=== PATIENT | male | born 1955 | race Caucasian/White ===

== ENCOUNTER 2023-03-29 08:20 | Emergency (ER) | payer MEDICARE, SELFPAY ==
[2023-03-29] VITALS (18 sets, daily range): BP systolic 146–165; BP diastolic 81–88; PULSE 48–59; RESP 20; TEMP 36.2; O2SAT 95–98
--- NOTE | 2023-03-29 08:41 | ED_ITS ---
HPI - General Adult General Chief complaint: Chest Pain Stated complaint: chest pains Time Seen by Provider: 03/29/23 08:40 History of Present Illness HPI narrative: Pt reports intermittent chest pain x2-3 weeks. Pain has been all over the chest, now is concentrated on L side of chest over last few days. Pt rates pain between 1 and 8 out of 10. Pt states he took 8 baby aspirin yesterday, states aspirin help relieve pain. 67-year-old man presenting to the emergency department he has been having intermittent chest pain over the last couple of weeks. Would describe as a nonexertional ache in chest that has been occurring intermittently for weeks. More persistent or present over the last day or 2. Otherwise not short of breath. No fever cough or cold symptoms. Seems that seatbelt was bothering or reproducing the pain in the left chest. No fever. No cough or cold symptoms. No clear correlating activity to have cause this or any noted injury. Related Data Home Medications Medication Instructions Recorded Confirmed rosuvastatin 20 mg tablet (Crestor) 20 mg PO DAILY 03/29/23 03/29/23 Allergies Allergy/AdvReac Type Severity Reaction Status Date / Time No Known Drug Allergies Allergy Verified 03/29/23 08:31 Review of Systems Status of ROS: Reports: 6 or more systems reviewed and unremarkable except as noted in History and below [facility] Social History Smoking Status: Current some day smoker What tobacco products do you use: cigars How often do you have a drink containing alcohol: monthly or less How often do you have six or more drinks on one occasion: Never AUDIT-C Alcohol total score: 1 Non-prescribed substance use: denies use Exam Narrative: Exam Narrative: Pleasant. NAD. Skin is warm and dry. Heart in slow rate but regular rhythm. No significant lower extremity edema. Well-perfused. Palpation of the chest wall does not reproduce pain. I do not see any rashes. Lungs are clear. Const: Vital Signs, click to edit/add: Vital Signs - 24 hr 03/29/23 08:25 03/29/23 08:32 03/29/23 08:33 Temperature 97.2 F L Pulse Rate 59 L 59 L Pulse Rate [Pulse Oximeter] 57 L Respiratory Rate 20 Blood Pressure 165/86 H Blood Pressure [Le ft Upper Arm] 165/86 H Pulse Oximetry 98 98 98 Oxygen Delivery Me thod Room Air 03/29/23 08:45 03/29/23 09:00 03/29/23 09:01 Temperature Pulse Rate 58 L 56 L 55 L Pulse Rate [Pulse Oximeter] Respiratory Rate Blood Pressure 155/88 H Blood Pressure [Le ft Upper Arm] Pulse Oximetry 97 98 97 Oxygen Delivery Me thod 03/29/23 09:15 03/29/23 09:30 03/29/23 09:32 Temperature Pulse Rate 54 L 54 L 57 L Pulse Rate [Pulse Oximeter] Respiratory Rate Blood Pressure 146/81 H Blood Pressure [Le ft Upper Arm] Pulse Oximetry 96 97 97 Oxygen Delivery Me thod 03/29/23 09:45 03/29/23 10:00 03/29/23 10:02 Temperature Pulse Rate 55 L 51 L 55 L Pulse Rate [Pulse Oximeter] Respiratory Rate Blood Pressure 151/81 H Blood Pressure [Le ft Upper Arm] Pulse Oximetry 96 97 97 Oxygen Delivery Me thod 03/29/23 10:15 03/29/23 10:30 03/29/23 10:32 Temperature Pulse Rate 52 L 48 L 49 L Pulse Rate [Pulse Oximeter] Respiratory Rate Blood Pressure 150/84 H Blood Pressure [Le ft Upper Arm] Pulse Oximetry 97 95 97 Oxygen Delivery Me thod 03/29/23 10:45 03/29/23 11:00 03/29/23 11:01 Temperature Pulse Rate 50 L 50 L 52 L Pulse Rate [Pulse Oximeter] Respiratory Rate Blood Pressure 160/87 H Blood Pressure [Le ft Upper Arm] Pulse Oximetry 96 98 97 Oxygen Delivery Me thod Documenting provider has reviewed patient's vital signs: yes Course Vital Signs Vital signs: Initial Vital Signs Temperature 97.2 F L 03/29/23 08:25 Temperature Source Temporal Artery Scan 03/29/23 08:25 Pulse Rate 57 L 03/29/23 08:25 Respiratory Rate 20 03/29/23 08:25 Blood Pressure 165/86 H 03/29/23 08:25 Blood Pressure Mean 112 H 03/29/23 08:25 Blood Pressure Position Supine 03/29/23 08:25 Pulse Oximetry 98 03/29/23 08:25 Oxygen Delivery Method Room Air 03/29/23 08:25 Vital Signs Temperature 97.2 F L 03/29/23 08:25 Pulse Rate 57 L 03/29/23 08:25 Respiratory Rate 20 03/29/23 08:25 Blood Pressure 165/86 H 03/29/23 08:25 Pulse Oximetry 98 03/29/23 08:25 Oxygen Delivery Method Room Air 03/29/23 08:25 Temperature 97.2 F L 03/29/23 08:25 Pulse Rate 52 L 03/29/23 11:01 Respiratory Rate 20 03/29/23 08:25 Blood Pressure 160/87 H 03/29/23 11:01 Pulse Oximetry 97 03/29/23 11:01 Oxygen Delivery Method Room Air 03/29/23 08:25 Medical Decision Making MDM Narrative Medical decision making narrative: The mild and semi reproducible nature of this discomfort I suppose is reassuring. Symptoms seem more likely to be musculoskeletal in origin, possibly costochondritis. I think this will be difficult to confirm a diagnosis. Will check labs looking for indication of cardiac stress or injury. Anemia would also be in differential. Heartburn/dyspepsia/GERD? 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 Apparently this is not new. Chest x-ray reviewed by me looks to be WNL. Normal cardiac silhouette. No pneumothorax or infiltrate. No interventions needed during time in the ER. Labs are reassuring. See patient discharge plan Lab Data Lab results reviewed: Yes I reviewed the patient's lab results Labs: Lab Results 03/29/23 Range/Units 08:40 WBC 5.96 (4.50-11.00) K/uL RBC 4.85 (4.30-5.90) m/uL Hgb 14.4 (13.5-17.5) gm/dL Hct 42.7 (37.0-53.0) % MCV 88 (80-100) fL MCH 30 (26-34) pg MCHC 34 (32-36) gm/dL RDW Coeff of En 12.4 (11.5-15.5) % Plt Count 150 (140-440) K/uL Neut % (Auto) 57.5 (42.0-72.0) % Lymph % (Auto) 29.2 (20-44) % [place] % (Auto) 9.9 (0.0-11.0) % Eos % (Auto) 2.9 (0.0-7.0) % Baso % (Auto) 0.2 (0.0-3.0) % Neut # (Auto) 3.43 (1.7-7.0) K/uL Lymph # (Auto) 1.74 (0.90-2.90) K/uL [place] # (Auto) 0.60 (0.00-0.90) K/UL Eos # (Auto) 0.17 (0.00-0.50) K/uL Baso # (Auto) 0.01 (0.00-0.30) K/uL Abs Immat Gran (auto) 0.02 (0.00-0.30) K/uL Imm/Tot Granulo (auto) 0.3 % D-Dimer Quant (PE/DVT) < 0.27 (0.00-0.50) ug/ml Sodium 139 (135-149) mmol/L Potassium 4.2 (3.6-5.1) mmol/L Chloride 107 (96-114) mmol/L Carbon Dioxide 24 (20-32) mmol/L Anion Gap 8 (7-15) mEq/L BUN 16 (7-30) mg/dL Creatinine 1.1 (0.5-1.5) mg/dL Estimated Creat Clear 69.41 Estimated GFR 74 ml/min Glucose 127 H (60-115) mg/dL Calcium 8.6 (8.4-10.6) mg/dL Total Bilirubin 0.4 (0.1-1.5) mg/dL Direct Bilirubin 0.0 (0.0-0.5) mg/dL AST 28 (12-35) U/L ALT 37 (4-50) U/L Alkaline Phosphatase 57 (40-150) U/L Troponin I < 0.01 L (0.01-0.04) ng/mL C-Reactive Protein 0.5 (0.5-1.0) mg/dL NT-Pro-B Natriuret Pep 104 pg/mL Total Protein 7.5 (6.0-8.3) g/dL Albumin 4.3 (3.3-5.0) g/dL Lipase 67 (23-300) U/L POC Troponin I 0.01 (0.01-0.04) ng/ml ECG Data Attestation: I personally reviewed and interpreted this ECG as follows: (Sinus bradycardia rate of 58 no acute ischemic changes.) Discharge Plan Discharge Clinical Impression: Atypical chest pain, Bradycardia Patient Disposition: Home w/ Parent or Adult Condition: Stable Additional Instructions: Please follow-up with your primary care provider in person or via message as I would anticipate needing to schedule a stress test but discuss further workup with her primary care provider. This could be chest wall pain and some sort or some other inflammatory process in your chest. Consider taking 400-600 mg of ibuprofen 3 times a day maybe with a little bit of food for the next 5 days. Reassess at that point. Alternative to the ibuprofen would be up to 500 mg naproxen 2 times daily. Return for marked increase in persistent chest discomfort, associated shortness of breath or nausea or lightheadedness. This could be an atypical presentation for heartburn as well. Famotidine would be another option for couple of weeks. Prescriptions: No Action rosuvastatin [Crestor] 20 mg tablet 20 mg PO DAILY Follow Up/Referrals: Provider,Not a Local [Primary Care Provider] - Stand Alone Forms: Third Screen Media Info Instructions
[2023-03-29 08:53] LABS: Troponin, Point-of-Care* 0.01 ng/ml (0.01-0.04)
--- NOTE | 2023-03-29 09:01 | CRLHL7_ITS ---
For Patients: As a result of the Century Cures Act, medical imaging exams and procedure reports are released immediately into your electronic medical record. You may view this report before your referring provider. If you have questions, please contact your health care provider. INDICATION: Intermittent left-sided chest pain TECHNIQUE: Chest 1 views. COMPARISON: None. FINDINGS: Cardiovasculature and mediastinum: Heart size and vasculature are normal in caliber and appearance. Lungs and pleural spaces: Lungs are clear. No sign of infiltrate or mass. No sign of pleural effusion. No pneumothorax. Bones and soft tissues: No significant findings. IMPRESSION: No acute cardiopulmonary process. Dictated by Robetr Rodriguez MD @ 03/29/2023 9:25:49 AM (Electronically Signed)
[2023-03-29 09:07] LABS: Basophils Absolute Auto 0.01 K/uL (0.00-0.30); Basophils Percent Auto 0.2 % (0.0-3.0); Eosinophils Absolute Auto 0.17 K/uL (0.00-0.50); Eosinophils Percent Auto 2.9 % (0.0-7.0); Hematocrit 42.7 % (37.0-53.0); Hemoglobin* 14.4 gm/dL (13.5-17.5); Immature Granulocytes Abs Auto 0.02 K/uL (0.00-0.30); Immature Granulocytes Pct Auto 0.3 %; Lymphocytes Absolute Auto 1.74 K/uL (0.90-2.90); Lymphocytes Percent Auto 29.2 % (20-44); Mean Corpuscular HGB Conc 34 gm/dL (32-36); Mean Corpuscular Hemoglobin 30 pg (26-34); Mean Corpuscular Volume 88 fL (80-100); Monocytes Percent Auto 9.9 % (0.0-11.0); Neutrophils Absolute Auto 3.43 K/uL (1.7-7.0); Neutrophils Percent Auto 57.5 % (42.0-72.0); Platelet Count* 150 K/uL (140-440); RDW Coefficient of Variation % 12.4 % (11.5-15.5); Red Blood Count 4.85 m/uL (4.30-5.90); White Blood Count* 5.96 K/uL (4.50-11.00)
[2023-03-29 09:09] LABS: Slide Review Reflex No
[2023-03-29 09:28] LABS: Albumin* 4.3 g/dL (3.3-5.0); Chloride* 107 mmol/L (96-114); Sodium* 139 mmol/L (135-149)
[2023-03-29 09:29] LABS: D Dimer Quantitative* < 0.27 ug/ml (0.00-0.50); Potassium* 4.2 mmol/L (3.6-5.1)
[2023-03-29 09:30] LABS: Creatinine* 1.1 mg/dL (0.5-1.5); Est. Creatinine Clearance* 69.41; Estimated Glomerular Filt Rate 74 ml/min
[2023-03-29 09:31] LABS: Alkaline Phosphatase* 57 U/L (40-150); Anion Gap 8 mEq/L (7-15); Aspartate Amino Transferase* 28 U/L (12-35); Bilirubin Total* 0.4 mg/dL (0.1-1.5); Blood Urea Nitrogen* 16 mg/dL (7-30); Carbon Dioxide* 24 mmol/L (20-32); Glucose* 127 mg/dL (60-115); Lipase* 67 U/L (23-300); Total Protein* 7.5 g/dL (6.0-8.3)
[2023-03-29 09:32] LABS: Alanine Aminotransferase* 37 U/L (4-50); Calcium* 8.6 mg/dL (8.4-10.6)
[2023-03-29 09:34] LABS: C Reactive Protein* 0.5 mg/dL (0.5-1.0)
[2023-03-29 10:01] LABS: NT Pro B Type NatriureticPept* 104 pg/mL; Troponin I* < 0.01 ng/mL (0.01-0.04)
== END 2023-03-29 11:21 | disposition home or self-care (01) ==
PROVIDERS: Emergency Provider Family Medicine
DX: R07.9 Chest pain, unspecified (principal); R00.1 Bradycardia, unspecified
CPT/HCPCS: 36415; 71045; 80048; 80076; 83690; 83880; 84484; 85025; 85379; 86140; 93005; 99284

== ENCOUNTER 2024-06-08 11:29 | Emergency (ER) | payer OTHER, SELFPAY ==
--- OUTSIDE RECORDS SUMMARY | 2024-06-08 11:31 | XMS_ITS | Encounter Summary ---
Author Name [facility] [place] [facility] [place] [facility] [place] Address [address] [place] [address] Care Team Providers Care Double Cutter Name Role Phone DERRICK BARNES Primary Care [...] PART A Apr 29, 2020 PART A [id number] P[place] GREGORY PATIENT MEDICARE (WNR) MEDICARE (M) PART B Apr 29, 2020 PART B [id number] P[place]O GREGORY PATIENT U-CARE OF [facility] (WNR) MEDICARE ADVANTAGE [facility] Apr 29, 2021 [id number] P[place] GREGORY PATIENT Selected Encounter This section includes the information on record at [place] for the Encounter. Date/Time Encounter Type Encounter Description Reason Provider Source Jan 08, 2024 10:30 AM COMPRE OPH EXAM EST PT 1/> OPTOMETRY ICD-10-CM I78.1 Nevus, non-neoplasti c HVEZDA,DEISY Morse IHE Encounter Template Text not used by VA Assessments - Encounter Diagnoses This section includes the primary and secondary diagnoses documented for the Encounter. Date/Time Primary/Secondary Diagnosis Diagnosis Name Provider Source Jan 08, 2024 01:33 PM PRIMARY Nevus, non-neoplastic HVEZBRIGIDO DOMÍNGUEZE K [facility] Jan 08, 2024 01:33 PM SECONDARY Combined forms of age-related cataract, bilateral HVEZDA,DEISY K [facility] Jan 08, 2024 01:33 PM SECONDARY Myopia, bilateral HVEZDA,DEISY K [facility] Jan 08, 2024 01:33 PM SECONDARY Presbyopia HVEZDA,DEISY K [facility] Jan 08, 2024 01:33 PM SECONDARY Unspecified astigmatism, bilateral HVEZDA,DEISY K [facility] Social History: Smoking Status (Most current) and Tobacco Use (All prior to encounter date) This section includes the most current, and the historical, smoking and tobacco- related health factors from the [place] facility where the Encounter took place. Current Smoking Status This section includes the most current smoking, or tobacco-related health factor, from the [place] facility where the Encounter took place. Date/Time Current Smoking Status Comment Facil ity Aug 21, 2023 10:30 AM VA-TOBACCO FORMER USER [facility] Tobacco Use History This section includes a history of the smoking, or tobacco-related health factors, that were collected on or before the date of the Encounter. The data comes from the [place] facility where the Encounter took place. Date/Time [...] Images obtained and available for viewing in [employer]. /claudia/ DEISY WILLIS OD,FAAO Signed: 01/08/2024 13:33 DEISY WILLIS [facility] Jan 08, 2024 10:06 AM OPTOMETRY NOTE: LOCAL TITLE: OPTOMETRY NOTE STANDARD TITLE: OPTOMETRY NOTE DATE OF NOTE: JAN 08, 2024@10:06 ENTRY DATE: JAN 08, 2024@10:06:33 AUTHOR: DEISY WILLIS EXP COSIGNER: URGENCY: STATUS: COMPLETED [place] [id number] MALE 68 WHITE Apr LEGEND PERRL = [...] is the source for the followin. Obesity ([facility] [id number]) 2. History of colonic polyp 3. Psoriasis [...] pleasant here for his comprehensive eye exam. [place] reports he is interested in trying bifocals, he sees well in his glasses, takes them off to read, no other ocular complaints. [place] lived in [place] for many years. [place] has some hunting land in [place]. They moved to [place] to be closer to their kids & [...] Medications: none Habitual Spectacle RX: 11/2021 OD: -0.50-1.08d706 OS: -1.00-0.17e288 Add +2.25 Entering DVA cc: OD: 20/20-1 OS: 20/20-2 Pupils: PERRL -APD OU Extraocular muscles: unrestricted OD, unrestricted OS Confrontations: full to finger count OD, full to finger count OS Manifest Refraction: OD: -0.50-1.24v142 20/20 OS: -0.75-1.10e437 20/20 Add +2.50 20/20 Slit Lamp Exam: [...] prescriber. *This note was created partially using [employer] [id number] software, and although edited in real-time, may occasionally contain grammatical or semantic errors. Return to Clinic: 1 year optometry /es/ DEISY WILLIS OD,FAAO Signed: 01/08/2024 13:33 DEISY WILLIS OC
--- OUTSIDE RECORDS SUMMARY | 2024-06-08 11:31 | XMS_ITS | Clinical Summary ---
Author Organization [facility] Address [place], [place] [address] Care Team Providers Care Medical Records Library Professor Name Role Phone Pcp, No Primary Care Provider Unavailabl e Allergies No known active allergies Medications aspirin (ECOTRIN) 81 mg enteric coated tablet Take 1 tablet by mouth once daily with a meal. 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 Immunizations Name Administration Dates Next Due Tdap 12/17/2012 Family History Medical History Relation Name Comments Cancer Brother Melanoma Other Father Parkinson's Diabetes Mother Relation Name Status Comments Brother Father (Age 91) Parkinson' s Mother (Age 94) Pneumonia Social History Tobacco Use Types Packs/Day Years Used Date Smoking Tobacco: Former Cigars Smokeless Tobacco: Never Tobacco Cessation:Ready to Q uit: Yes; Counseling Given: Yes Comments:1-2 week Alcohol Use Standard Drinks/Week Comments Yes 2 (1 standard drink = 0.6 oz pur e alcohol) Sex and Gender Information Value Date Recorded Sex Assigned at Not on file Legal Sex Male 8:22 AM [employer] Gender Identity Not on file Sexual Orientation Not on file Occupation Industry Job Start Date Job End Date 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 Not on file Not on file Not on file Obstetrics History Last Filed Vital Signs Vital Sign Reading Time Taken Comments Blood Pressure 154/89 04/18/2016 8:59 AM [employer] Pulse 64 04/18/2016 8:59 AM [employer] Temperature 36.6 C (97.9 F) 12/20/2015 8:03 AM CDT Respiratory Rate 18 02/24/2015 8:43 AM CDT Oxygen Saturation 98% 12/20/2015 8:03 AM CDT Inhaled Oxygen Concentration - - Weight 101.5 kg (223 lb 12.8 oz) 04/18/2016 8:59 AM [employer] Height 180.3 cm (5' 11) 04/18/2016 8:59 AM [employer] Body Mass Index 31.21 04/18/2016 8:59 AM [employer] Plan of Treatment Health Maintenance Due Date Last Done Comments Hepatitis C screening for ag e 18-79 1973 Colonoscopy through age 75 2000 Lipids for age 45-75 2000 Pneumococcal series for age 50+ (1 of 1 - PCV) 2005 Zoster (shingles) series for age 50+ (1 of 2) 2005 Depression screening for age 12+ 12/19/2016 12/20/19 16, 12/20/2015 BMI (ht and wt on same day) for age 18+ 04/18/2017 04/18/2016, 12/20/2015, 08/11/2015, Additional history exists Tetanus booster 12/17/2022 12/17/2012 COVID-19 vaccine series ( - 2023- season) 2023 Influenza for age 65+ 12/29/2023 RSV vaccine for adults or (1 - 1-dose 75+ series) 2030 Tdap Completed 12/17/2012 Care Teams Medical Records Library Professor Relationship Specialty Start Date End Date Pcp, No . PCP - General 06/20/22
--- OUTSIDE RECORDS SUMMARY | 2024-06-08 11:31 | XMS_ITS | Clinical Summary ---
Author Organization [facility] Address [address] [place] [address] Care Team Providers Care Supervisor Hand Workers Name Role Phone Giovanny Villafuerte MD Primary Care Provider [phone] Source Comments You are receiving this document as you are listed as the primary care provider,follow-up provider, or the patient has been referred to you for consultation.This is in compliance with the Medicare and[facility] EHR Incentive Program,which states Providers who transition their patient to another setting of careor provider of care or refers their patient to another provider of care shouldprovide summary care record for each transition of care or referral. [facility] All[facility] No known active allergies Medications Medication Sig Dispensed Refills Start Date End Date Status aspirin 81 MG tablet Take 1 tablet by mouth daily (every 24 hours). 90 3 08/07/2005 Active Methotrexate, Anti-Rheumatic, (AKA RHEUMATREX) 2.5 MG tablet Take 7 tablets by mouth once a week. 84 tablet 2 09/30/2013 Active Additional Information Patient not taking.Reported on 10/13/2020 folic acid 1 MG tablet TAKE 1 TABLET BY MOUTH DAILY (EVERY 24 HOURS). 30 tablet 3 05/21/2014 Active Additional Information Patient not taking.Reported on 10/13/2020 clobetasol (AKA TEMOVATE) 0.05 % ointment Apply 1 Application topically 2 times daily. 60 g 2 11/11/2014 Active Additional Information Patient not taking.Reported on 10/13/2020 Active Problems Problem Noted Date Diagnosed Date Hand eczema 12/17/2012 Hydrocele 08/25/2008 Overview (12/01/2015): LW Modifier: bilateral Immunizations Name Administration Dates Next Due TDAP (BOOSTRIX) 12/17/2012 Td 08/17/2003 Family History Medical History Relation Name Comments Parkinsons Father Cataract Mother Diabetes Mother Blindness Brother 1 Cancer, Skin Brother 1 melanoma Relation Name Status Comments Father (Age 91) Mother in her 90' s Brother 1 (Age 56) Brother 2 Alive Brother 3 Alive Brother 4 Alive Sister 1 Alive Sister 2 Alive Social History Tobacco Use Types Packs/Day Years Used Date Smoking Tobacco: Never Smokeless Tobacco: Never Comments:Quit smoking: Alcohol Use Standard Drinks/Week Comments Yes 0 (1 standard drink = 0.6 oz pur e alcohol) occasional PHQ-2 Answer Date Recorded PHQ-2 Score 0 10/13/2020 Sex and Gender Information Value Date Recorded Sex Assigned at Not on file Gender Identity Not on file Sexual Orientation Not on file Last Filed Vital Signs Vital Sign Reading Time Taken Comments Blood Pressure 144/84 10/13/2020 1:35 PM CDT monitoring at [place] Pulse 71 10/13/2020 1:35 PM CDT Temperature 36.7 C (98 F) 10/13/2020 1:35 PM CDT Respiratory Rate 20 12/17/2013 8:25 AM CDT Oxygen Saturation - - Inhaled Oxygen Concentration - - Weight 103.7 kg (228 lb 11. 2 oz) 10/13/2020 1:35 PM CDT Height 179.1 cm (5' 10.5) 12/17/2012 9 :31 AM CDT Body Mass Index 32.35 12/17/2012 9:31 AM CDT Plan of Treatment Health Maintenance Due Date Last Done Comments Hep C Screening (Preventive Services) 1955 Medicare Annual Wellness Visit 1955 Zoster/Shingles (1 of 2) 2005 Cholesterol 12/17/2017 12/17/2012, 07/29, 11/19/2007, Additional history exists Colonoscopy 12/15/2018 12/15/2008 Pneumococcal 65+ Yrs (1 - PCV) 2020 DTaP/Tdap/Td (2 - Tdap) 12/17/2022 12/17/2012, 08/16 COVID-19 Vaccine (1 - 2023- season) 2023 Influenza (#1) 2023 RSV (1 - 1-dose 75+ series) 2030 PSA Screening Discussion Discontinued 013, 08/25/2008, 08/07/2005 HepA Aged Out No longer eligi ble based on patient's age to complete this topic HepB Aged Out No longer eligi ble based on patient's age to complete this topic Hib Aged Out No longer eligi ble based on patient's age to complete this topic IPV (Polio) Aged Out No longer eligi ble based on patient's age to complete this topic MCV4 Aged Out No longer eligi ble based on patient's age to complete this topic Procedures Procedure Name Priority Date/Time Associated Diagnosis Comments PROSTATIC SPECIFIC ANTIGEN(SCREEN) Routine 12/17/2012 10:40 AM CDT Well adult exam LIPID PANEL & DIRECT LDL (IF NEEDED) Routine 12/17/2012 10:40 AM CDT Well adult exam ENDOSCOPY, COLON, SCREENING/DIAGNOSTI C Routine 12/15/2008 5:06 PM CDT from Last 3 Months or Most Recently Relevant to Health Maintenance Results * (ABNORMAL) Lipid Panel and Direct LDL(If Needed) (12/17/2012 10:40 AM CDT) Cholesterol 185 0 - 200 mg/dL HP CONVERSION Triglycerides 181(H) 0 - 149 mg/dL HP CONVERSION HDL Cholesterol 36(L) >39 mg/dL HP CONVERSION Cholesterol/HDL Ratio Screen 5.1 HP CONVERSION LDL Calculated 113 19 - 130 mg/dL HP CONVERSION Hours Fasting 12.0 HP CONVERSION 12/17/2012 10:4 0 AM CDT 12/17/2012 10:40 AM CDT Narrative HP CONVERSION - 12/17/2012 11:08 AM CDT Performed at [facility], [address] [place] [address] Giovanny Villafuerte MD LAB_1 HP CONVERSION * Prostatic Specific Antigen (Screen) (12/17/2012 10:40 AM CDT) Prostate Specific Antigen 0.4 0.0 - 4.0 ng/mL HP CONVERSION 12/17/2012 10:4 0 AM CDT 12/17/2012 1:37 PM CDT Giovanny Villafuerte MD LAB_1 HP CONVERSION * Endoscopy, colon, diagnostic (12/15/2008 5:06 PM CDT) Anatomical Region Laterality Modality Other User Conversion ET GI PROCEDURE ORDE RABLES from Last 3 Months or Most Recently Relevant to Health Maintenance Care Teams Supervisor Hand Workers Relationship Specialty Start [place] [address] [place] [address] PCP - General 07/31/10
--- OUTSIDE RECORDS SUMMARY | 2024-06-08 11:31 | XMS_ITS | Clinical Summary ---
Author Organization [facility] Address [address] [place] [address] Care Team Providers Care Composition Mixer Name Role Phone Elsewhere, Pcp Primary Care Provider Unavailabl e Source Comments Patient records contain information from all sites at [facility]. For routine questions regarding patient records, call [phone] during business hours, M-F 8:00 AM - 5:00 PM Central Time. Record requests for emergency care only can be directed to [phone] at any time.[facility] Allergies No known active allergies Medications aspirin 81 mg capsule Take 81 mg by mouth once. Active rosuvastatin (CRESTOR) 20 mg tablet Take 10 mg by mouth daily. Active erythromycin (ROMYCIN) 5 mg/gram (0.5 %) ophthalmic ointment Apply 1 cm to right eye every 6 (six) hours. 3.5 g 09/20/2023 10:11 AM CDT 4 Active methocarbamoL (Robaxin) 500 mg tablet Take 2 tablets (1,000 mg total) by mouth at bedtime. Start dosing at bedtime only. Ok to titrate up to every 8 hours if tolerating. 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 Diverticulum Meckel's 01/31/2017 Diverticulitis Colon 01/31/2017 Psoriasis 01/31/2017 Hernia Incisional 01/31/2017 Immunizations Immunization Administration Dates Next Due Td (Adult), adsorbed 08/17/2003 Tdap 12/17/2012 Family History Medical History Relation Name Comments Melanoma Brother Parkinson disease Father passed edwina y 91 Psoriasis Father Eye Mother 94 Relation Name Status Comments Brother Melanoma Father Mother Social History Tobacco Use Types Packs/Day Years Used Date Smoking Tobacco: Never Smokeless Tobacco: Never Alcohol Use Standard Drinks/Week Comments Yes 3 (1 standard drink = 0.6 oz pur e alcohol) Nutrition Answer Date Recorded Nutrition: EVOO Fat Source Unknown 06/20 Nutrition: Servings of Fruits/Vegetables per Day Not on file 06/20/2020 Dental Answer Date Recorded Dental: Regular Dentist Unknown 09/26/19 23 Sex and Gender Information Value Date Recorded Sex Assigned at Not on file Legal Sex Male 10:34 PM [employer]OR [employer]PRESENTATIVE Gender Identity Not on file Sexual Orientation Not on file Last Filed Vital Signs Vital Sign Reading Time Taken Comments Blood Pressure 152/89 09/20/2023 9:42 AM CDT Pulse 68 09/20/2023 9:42 AM CDT Temperature 36.2 C (97.2 F) 09/20/2023 9:42 AM CDT Respiratory Rate 18 09/20/2023 9:42 AM CDT Oxygen Saturation 95% 09/20/2023 9:42 AM CDT Inhaled Oxygen Concentration - - Weight 104 kg (229 lb 4.5 oz) 09/20/2023 9:42 AM CDT Height 182 cm (5' 11.65) 01/31/2017 7:52 AM CDT Body Mass Index 31.4 01/31/2017 7:52 AM CDT Plan of Treatment Health Maintenance Due Date Last Done Comments CT Colonography 1955 Cologuard 1955 Hepatitis C Screening 1955 COVID-19 Vaccine (#1) 1960 Pneumococcal vaccine (50+ years) (1 of 2 - PCV) 1974 Fasting Glucose for Diabetes Screening 08/09/2019 08/08/2018, 01/31/2017 Lipid (Cholesterol) Screening 08/09/2023, 01/31/2017 Influenza Vaccine (#1) 2024 Depression Screening (Annual PHQ-2) 04/29/2024 Fall Risk Screen (Annual) 04/29/2024 DTaP,Tdap,and Td Vaccines (3 - Td or Tdap) 08/13/2028 08/13/2018, 12/17/2012, 08/17/2003 Colonoscopy 12/05/2029 12/05/2022, 10/28/2018, 04/29/2009 (Performed elsewhere) Colorectal Cancer Surveillance 12/05/2029 Zoster Vaccines Completed 11/24/2018, 08/13/2018 HPV Vaccines Aged Out No longer eligi ble based on patient's age to complete this topic IPV Vaccines Aged Out No longer eligi ble based on patient's age to complete this topic Procedures Procedure Name Priority Date/Time Associated Diagnosis Comments COLONOSCOPY 12/05/2022 1:01 PM CDT BASIC METABOLIC PANEL, S/P Routine 08/08/2018 LIPID PANEL, S Routine 08/08/2018 from Last 3 Months or Most Recently Relevant to Health Maintenance Results * COLONOSCOPY (12/05/2022 1:01 PM CDT) Narrative Procedure Note Twin Gonzalez M.D. - 12/05/2022 1:01 PM CDT [facility] Patient Name: Jonathon Horton Procedure Date: 12/05/2022 1:01 PM Date of : 1955 Age: 67 Gender: Male Procedure: Colonoscopy Providers: Carmen Villa (Ordering Provider) Referring Provider: Carmen Turcios Pre-op Diagnoses: High risk colon cancer surveillance: Personal history of colonic polyps Post-op Diagnoses: - One 7 mm polyp in the ascending colon, removed with a cold snare. Resected and retrieved. - Diverticulosis in the sigmoid colon. - Patent [id number] ileo-colonic anastomosis, characterized byhealthy appearing mucosa. Recommendation: - Discharge patient to home. - High fiber diet for the rest of the patient's life. - Use fiber, for example Citrucel, Fibercon, Konsyl or Metamucil. - Await pathology results. - Repeat colonoscopy in 7-10 years for surveillance. - Return to primary care physician PRN. Findings: The perianal and digital rectal examinations were normal. A 7 mm polyp was found in the ascending colon. The polyp was semi-pedunculated. The polyp was removed with a cold snare. Resection and retrieval were complete. Estimated blood loss was minimal. Multiple small and large-mouthed diverticula were found in thesigmoid colon. No additional abnormalities were found on retroflexion. There was evidence of a prior [id number] ileo-colonic anastomosisin the ascending colon. This was patent and was characterized by healthy appearing mucosa. Medicines: Propofol per Anesthesia Estimated Blood Loss: Estimated blood loss was minimal. Complications: No immediate complications. Estimated blood loss: Minimal. Procedure Details: The patient was seen, evaluated, and history reviewed. Airway and heart and lung exams were performed and were satisfactory for plannedsedation care. The risks, benefits and alternatives for the procedure and sedation were discussed andinformed consent was obtained. A procedural pause was conducted in the presence of assisting personnelto verify the correct patient identity and procedureto be performed. Throughout the procedure, the patient's blood pressure, pulse, and oxygen saturations were monitored continuously. The Colonoscope was introduced under directvision through the anus and advanced to the ileocolonic anastomosis. The colonoscopy was performedwithout difficulty. The patient tolerated the procedure well. The quality of the bowel preparation was evaluated using the BBPS ([place] BowelPreparation Scale) with scores of: Right Colon = 3 (entire mucosa seen well with no residual staining, small fragments of stool or opaque liquid), Transverse Colon = 3 (entire mucosa seen well with noresidual staining, small fragments of stool or opaqueliquid) and Left Colon = 2 (minor amount of residual staining, small fragments of stool and/or opaque liquid, but mucosa seen well). The total BBPSscore equals 8. Sedation: Anesthesia was administered by an anesthesia professional. Thefollowing parameters were monitored: oxygen saturation, heart rate, blood pressure, respiratory rate, EKG, adequacy of pulmonary ventilation,and response to care. Twin Gonzalez, 12/05/2022 1:06:25 PM This report has been signed electronically. Number of Addenda: 0 Note Initiated On: 12/05/2022 1:01 PM Carmen Kemp GI PROCEDURE ORDERABLES Fi nal Result * (ABNORMAL) Lipid Panel (08/08/2018) Triglycerides 250(A) 40 - 160 KNITTER MACHINE AL NON-INTERFACE D LAB Cholesterol, Total 128 0 - 200 E XTERNAL NON-INTERFACE D LAB Cholesterol, HDL, S 33(A) 35 - 70 EXTERNAL NON-INTERFACE D LAB LDL Cholesterol 45 EXTE RNAL NON-INTERFACE D LAB Blood (Blood, Venous) Ordering Provider External M.D. LAB BLOOD NON AD D-ON Final Result Performing Organization Address [facility] [address]/[facility] Co de Phone Number EXTERNAL NON-INTERFACED LAB [address] [place] [address] * Basic Metabolic Panel (08/08/2018) Glucose 112 mg/dL EXTERNAL NON-INTERFACED LAB BUN (Blood Urea Nitrogen), S 21 4 - 21 EXTERNAL NON-INTERFACED LAB Creatinine 1.04 0.6 - 1.3 EXTERNAL NON-INTERFACED LAB Potassium, S 4.3 3.4 - 5.3 EXTERNA L NON-INTERFACED LAB Sodium, S 139 137 - 147 EXTERNAL NON-INTERFACED LAB Blood (Blood, Venous) Ordering Provider External M.D. LAB BLOOD ADD-ON Final Result Performing Organization Address [facility] [address]/[facility] Co de Phone Number EXTERNAL NON-INTERFACED LAB [address] [place] [address] from Last 3 Months or Most Recently Relevant to Health Maintenance Insurance [facility] Advance Directives For more information, please contact: [phone] * Full Code (Latest Code Status on File) Date Activated Date Inactivated Comments 12/05/2022 1:43 PM 12/05/2022 3:52 PM Question Answer Comments Full Code: Discussed * Full Code Date Activated Date Inactivated Comments 12/05/2022 10:58 AM 12/05/2022 1:43 PM Question Answer Comments Full Code: Discussed Care Teams Composition Mixer Relationship Specialty Start Date End Date Elsewhere, Pcp PCP - General 12/04/21
--- OUTSIDE RECORDS SUMMARY | 2024-06-08 11:32 | XMS_ITS | Continuity of Care Document ---
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 It does not include entries that were removed or entered in error. Problem Status Onset Date Problem Type Date of Resolution Comments Source Diverticulitis Active Condition May [id number] Entered By: CARLO NAVARRO PA-C Comment: perf 02/2015, R hemicolectom y, sm bowel resection, end ileostomy, takedown 07/2015 [facility] History of colonic polyp Active Condition Dec 10, 2022 Entered By: EDILBERTO ALONZO RN Comment: colo Jain 11/2022, rpt 7-10 yrs, due 11/2029 [facility] Hyperlipidemia Active Condition [facility] Obesity ([facility] [id number]) Active Condition [facility] Psoriasis Active Condition [facility] Diagnosis: ICD-10-CM I78.1 Nevus, non-neoplastic Active Diagnosis [facility] Diagnosis: ICD-10-CM L98.9 Disorder of the skin and subcutaneous tissue, unspecified Active Diagnosis [facility] Diagnosis: ICD-10-CM L82.1 Other seborrheic keratosis Active Diagnosis [facility] Diagnosis: ICD-10-CM Z13.89 Encounter for screening for other disorder Active Diagnosis [facility] Diagnosis: ICD-10-CM E78.5 Hyperlipidemia, unspecified Active Diagnosis [facility] Diagnosis: ICD-10-CM M65.4 Radial styloid tenosynovitis [de Quervain] Active Diagnosis [facility] Diagnosis: ICD-10-CM Z71.89 Other specified counseling Active Diagnosis [facility] Medications Combined list of outpatient medications from Department of Defense and Veterans Affairs facilities.Medications provided include 1) outpatient medications from the last 15 months, and 2) patient-reported medications. Medication Details Route Status Patient Instructions Prescription Expires Prescription Number Last Dispense Date Ordering Provider Order Date Order Qty Source ASPIRIN 81MG TAB,EC TAKE ONE TABLET BY MOUTH ONCE DAILY ORAL ACTIVE OSINDE,SY LVIA N PA-C 2017 [facility] CYCLOBENZAP RINE HCL 10MG TAB TAKE ONE TABLET BY MOUTH AT BEDTIME FOR MUSCLE SPASM NO DRIVING WITHIN 4-6 HRS OF TAKING, CASUES DROWSINE SS ORAL 07/19/2023 [id number] 4 LOCHER,ER IC H 2023 30 [facility] FAMOTIDINE 20MG TAB TAKE ONE TABLET BY MOUTH DAILY PRN ORAL ACTIVE MOLLYDIAMANTE WONG RLENE A 2023 [facility] ROSUVASTATI N CA 20MG TAB TAKE ONE-HALF TABLET BY MOUTH EVERY EVENING *TO LOWER CHOLESTE ROL* ORAL ACTIVE 08/21/2024 [id number] MOLLYDIAMANTE WONG RLENE A 2023 45 [facility] ROSUVASTATI N CA 20MG TAB TAKE ONE-HALF TABLET BY MOUTH EVERY EVENING *TO LOWER CHOLESTE ROL* ORAL DISCONT INUED 08/19/2023 [id number] DOUG JETT M 2022 45 [facility] Immunizations Combined list of available immunizations from the Department of Defense and Veterans Affairs facilities. 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 Order Name Results Value Reference Range Date Interpretation Specimen Comments Source BASIC METABOLI C CREATININE [MASS/VOLU ME] IN SERUM OR PLASMA 1.09 mg/dL 0.73 - 1.18 08/20 Specimen Type: PLASMA Comment: This is an estimate of GFR using the CKD-Epi equation and not a measurement . Results may be impacted by variability in physiology age, sex, serum creatinine. Units for EGFR (2020 CKD-EPI)=mL /min/1.73 square meters. Ordering Provider: BHAVNA BARNES Report Released Date/Time: May 14, 2023 11:50 AM Reporting Lab: [address] [address] Performing Lab: [address] [address] [facility] BASIC METABOLI C UREA NITROGEN [MASS/VOLU ME] IN SERUM OR PLASMA 17 mg/dL 7 - 21 08/20 Specimen Type: PLASMA Comment: This is an estimate of GFR using the CKD-Epi equation and not a measurement . Results may be impacted by variability in physiology age, sex, serum creatinine. Units for EGFR (2020 CKD-EPI)=mL /min/1.73 square meters. Ordering Provider: BHAVNA BARNES Report Released Date/Time: May 14, 2023 11:50 AM Reporting Lab: [address] [address] Performing Lab: [address] [address] [facility] BASIC METABOLI C GLUCOSE [MASS/VOLU ME] IN SERUM OR PLASMA 106 mg/dL 70 - 99 08/20 H Specimen Type: PLASMA Comment: This is an estimate of GFR using the CKD-Epi equation and not a measurement . Results may be impacted by variability in physiology age, sex, serum creatinine. Units for EGFR (2020 CKD-EPI)=mL /min/1.73 square meters. Ordering Provider: BHAVNA BARNES Report Released Date/Time: May 14, 2023 11:50 AM Reporting Lab: [address] [address] Performing Lab: [address] [address] [facility] BASIC METABOLI C SODIUM [MOLES/VOL UME] IN SERUM OR PLASMA 141 mmol/L 136 - 145 08/20 Specimen Type: PLASMA Comment: This is an estimate of GFR using the CKD-Epi equation and not a measurement . Results may be impacted by variability in physiology age, sex, serum creatinine. Units for EGFR (2020 CKD-EPI)=mL /min/1.73 square meters. Ordering Provider: BHAVNA BARNES Report Released Date/Time: May 14, 2023 11:50 AM Reporting Lab: [address] [address] Performing Lab: [address] [address] [facility] BASIC METABOLI C POTASSIUM [MOLES/VOL UME] IN SERUM OR PLASMA 4.1 mmol/L 3.5 - 4.7 08/20 Specimen Type: PLASMA Comment: This is an estimate of GFR using the CKD-Epi equation and not a measurement . Results may be impacted by variability in physiology age, sex, serum creatinine. Units for EGFR (2020 CKD-EPI)=mL /min/1.73 square meters. Ordering Provider: BHAVNA BARNES Report Released Date/Time: May 14, 2023 11:50 AM Reporting Lab: [address] [address] Performing Lab: [address] [address] [facility] BASIC METABOLI C CHLORIDE [MOLES/VOL UME] IN SERUM OR PLASMA 108 mmol/L 98 - 109 08/20 Specimen Type: PLASMA Comment: This is an estimate of GFR using the CKD-Epi equation and not a measurement . Results may be impacted by variability in physiology age, sex, serum creatinine. Units for EGFR (2020 CKD-EPI)=mL /min/1.73 square meters. Ordering Provider: BHAVNA BARNES Report Released Date/Time: May 14, 2023 11:50 AM Reporting Lab: [address] [address] Performing Lab: [place] [phone] [facility] BASIC METABOLI C CARBON DIOXIDE, TOTAL [MOLES/VOL UME] IN SERUM OR PLASMA 27.5 mmol/L 21.0 - 32.0 08/20 Specimen Type: PLASMA Comment: This is an estimate of GFR using the CKD-Epi equation and not a measurement . Results may be impacted by variability in physiology age, sex, serum creatinine. Units for EGFR (2020 CKD-EPI)=mL /min/1.73 square meters. Ordering Provider: BHAVNA BARNES Report Released Date/Time: May 14, 2023 11:50 AM Reporting Lab: [address] [address] Performing Lab: [address] [place] [address] [facility] BASIC METABOLI C CALCIUM [MASS/VOLU ME] IN SERUM OR PLASMA 9.6 mg/dL 8.7 - 10.4 08/20 Specimen Type: PLASMA Comment: This is an estimate of GFR using the CKD-Epi equation and not a measurement . Results may be impacted by variability in physiology age, sex, serum creatinine. Units for EGFR (2020 CKD-EPI)=mL /min/1.73 square meters. Ordering Provider: BHAVNA BARNES Report Released Date/Time: May 14, 2023 11:50 AM Reporting Lab: [address] [address] Performing Lab: [address] [address] [facility] BASIC METABOLI C ANION GAP IN SERUM OR PLASMA 6 mmol/L 5 - 15 08/20 Specimen Type: PLASMA Comment: This is an estimate of GFR using the CKD-Epi equation and not a measurement . Results may be impacted by variability in physiology age, sex, serum creatinine. Units for EGFR (2020 CKD-EPI)=mL /min/1.73 square meters. Ordering Provider: BHAVNA BARNES Report Released Date/Time: May 14, 2023 11:50 AM Reporting Lab: [address] [address] Performing Lab: [address] [address] [facility] BASIC METABOLI C UREA NITROGEN/C REATININE [MASS RATIO] IN SERUM OR PLASMA 16 - 08/20 Specimen Type: PLASMA Comment: This is an estimate of GFR using the CKD-Epi equation and not a measurement . Results may be impacted by variability in physiology age, sex, serum creatinine. Units for EGFR (2020 CKD-EPI)=mL /min/1.73 square meters. Ordering Provider: BHAVNA BARNES Report Released Date/Time: May 14, 2023 11:50 AM Reporting Lab: [address] [phone] Performing Lab: [address] [address] [facility] BASIC METABOLI C GLOMERULAR FILTRATION RATE/1.73 SQ M.PREDICTE D [VOLUME RATE/AREA] IN SERUM, PLASMA OR BLOOD BY CREATININE -BASED FORMULA (CKD-EPI 2020) 74 60 08/20 Specimen Type: PLASMA Comment: This is an estimate of GFR using the CKD-Epi equation and not a measurement . Results may be impacted by variability in physiology age, sex, serum creatinine. Units for EGFR (2020 CKD-EPI)=mL /min/1.73 square meters. Ordering Provider: BHAVNA BARNES Report Released Date/Time: May 14, 2023 11:50 AM Reporting Lab: [address] [address] Performing Lab: [address] [address] [facility] CBC HEMOGRAM ONLY LEUKOCYTES [#/VOLUME] IN BLOOD BY AUTOMATED COUNT 7.9 10*3/uL 4.0 - 11.0 08/20 Specimen Type: BLOOD No comment entered. Ordering Provider: BHAVNA BARNES Report Released Date/Time: May 14, 2023 11:50 AM Reporting Lab: [place] [address] [place] [address] Performing Lab: [address] [address] [facility] CBC HEMOGRAM ONLY ERYTHROCYT ES [#/VOLUME] IN BLOOD BY AUTOMATED COUNT 5.01 10*6/uL 4.20 - 5.70 08/20 Specimen Type: BLOOD No comment entered. Ordering Provider: BHAVNA BARNES Report Released Date/Time: May 14, 2023 11:50 AM Reporting Lab: [place] [address] [place] [address] Performing Lab: [address] [address] [facility] CBC HEMOGRAM ONLY HEMOGLOBIN [MASS/VOLU ME] IN BLOOD 14.8 g/dL 13.0 - 17.0 08/20 Specimen Type: BLOOD No comment entered. Ordering Provider: BHAVNA BARNES Report Released Date/Time: May 14, 2023 11:50 AM Reporting Lab: [address] [address] Performing Lab: [facility] [address] [place] [address] [facility] CBC HEMOGRAM ONLY HEMATOCRIT [VOLUME FRACTION] OF BLOOD BY AUTOMATED COUNT 44.3 40.0 - 51.0 08/20 Specimen Type: BLOOD No comment entered. Ordering Provider: BHAVNA BARNES Report Released Date/Time: May 14, 2023 11:50 AM Reporting Lab: [facility] [address] [place] [address] Performing Lab: [place] [address] [place] [address] [facility] CBC HEMOGRAM ONLY MCV [ENTITIC VOLUME] BY AUTOMATED COUNT 88.4 fL 82.0 - 99.0 08/20 Specimen Type: BLOOD No comment entered. Ordering Provider: BHAVNA BARNES Report Released Date/Time: May 14, 2023 11:50 AM Reporting Lab: [place] [address] [place] [address] Performing Lab: [place] [address] [place] [address] [facility] CBC HEMOGRAM ONLY MCH [ENTITIC MASS] BY AUTOMATED COUNT 29.5 pg 27.0 - 34.0 08/20 Specimen Type: BLOOD No comment entered. Ordering Provider: BHAVNA BARNES Report Released Date/Time: May 14, 2023 11:50 AM Reporting Lab: [place] [address] [place] [address] Performing Lab: [place] [address] [place] [address] [facility] CBC HEMOGRAM ONLY MCHC [MASS/VOLU ME] BY AUTOMATED COUNT 33.4 g/dL 31.0 - 37.0 08/20 Specimen Type: BLOOD No comment entered. Ordering Provider: BHAVNA BARNES Report Released Date/Time: May 14, 2023 11:50 AM Reporting Lab: [place] [address] [place] [address] Performing Lab: [place] [address] [place] [address] [facility] CBC HEMOGRAM ONLY PLATELETS [#/VOLUME] IN BLOOD BY AUTOMATED COUNT 197 10*3/uL 130 - 400 08/20 Specimen Type: BLOOD No comment entered. Ordering Provider: BHAVNA BARNES Report Released Date/Time: May 14, 2023 11:50 AM Reporting Lab: [place] [address] [facility] [address] Performing Lab: [address] [place] [address] [facility] CBC HEMOGRAM ONLY PLATELET MEAN VOLUME [ENTITIC VOLUME] IN BLOOD BY AUTOMATED COUNT 10.7 fL 8.0 - 12.0 08/20 Specimen Type: BLOOD No comment entered. Ordering Provider: BHAVNA BARNES Report Released Date/Time: May 14, 2023 11:50 AM Reporting Lab: [address] [address] Performing Lab: [address] [address] [facility] CBC HEMOGRAM ONLY ERYTHROCYT E DISTRIBUTI ON WIDTH [RATIO] BY AUTOMATED COUNT 13.2 < 15.0 - 15.0 08/20 Specimen Type: BLOOD No comment entered. Ordering Provider: BHAVNA BARNES Report Released Date/Time: May 14, 2023 11:50 AM Reporting Lab: [address] [address] Performing Lab: [address] [address] [facility] CBC HEMOGRAM ONLY NUCLEATED ERYTHROCYT ES [#/VOLUME] IN BLOOD BY AUTOMATED COUNT <0.0110* 3/uL 0.000 - 0.012 08/20 Specimen Type: BLOOD No comment entered. Ordering Provider: BHAVNA BARNES Report Released Date/Time: May 14, 2023 11:50 AM Reporting Lab: [place] [address] [place] [address] Performing Lab: [place] [address] [place] [address] [facility] CBC HEMOGRAM ONLY NUCLEATED ERYTHROCYT ES [PRESENCE] IN BLOOD BY AUTOMATED COUNT 0.0 /100{WBC s} 0.0 - 0.2 08/20 Specimen Type: BLOOD No comment entered. Ordering Provider: BHAVNA BARNES Report Released Date/Time: May 14, 2023 11:50 AM Reporting Lab: [place] [address] [place] [place] [address] Performing Lab: [address] [place] [address] [facility] AST(SGOT ) ASPARTATE AMINOTRANS FERASE [ENZYMATIC ACTIVITY/V OLUME] IN SERUM OR PLASMA 26 U/L 10 - 37 08/20 Specimen Type: PLASMA Comment: This is an estimate of GFR using the CKD-Epi equation and not a measurement . Results may be impacted by variability in physiology age, sex, serum creatinine. Units for EGFR (2020 CKD-EPI)=mL /min/1.73 square meters. Ordering Provider: BHAVNA BARNES Report Released Date/Time: May 14, 2023 11:50 AM Reporting Lab: [address] [address] Performing Lab: [address] [place] [address] [facility] ALT(SGPT ) ALANINE AMINOTRANS FERASE [ENZYMATIC ACTIVITY/V OLUME] IN SERUM OR PLASMA 51 U/L 10 - 65 08/20 Specimen Type: PLASMA Comment: This is an estimate of GFR using the CKD-Epi equation and not a measurement . Results may be impacted by variability in physiology age, sex, serum creatinine. Units for EGFR (2020 CKD-EPI)=mL /min/1.73 square meters. Ordering Provider: BHAVNA BARNES Report Released Date/Time: May 14, 2023 11:50 AM Reporting Lab: [address] [address] Performing Lab: [address] [address] [facility] PROSTATE SPECIFIC ANTIGEN PROSTATE SPECIFIC AG [MASS/VOLU ME] IN SERUM OR PLASMA 0.60 ng/mL 0.00 - 4.00 08/20 Specimen Type: SERUM Comment: PSA was performed on the [employer] Immunoassay Analyzer. Ordering Provider: BHAVNA BARNES Report Released Date/Time: May 14, 2023 11:50 AM Reporting Lab: [address] [address] Performing Lab: [address] [address] [facility] LIPID PROFILE CHOLESTERO L [MASS/VOLU ME] IN SERUM OR PLASMA 89 mg/dL 0 - 199 08/20 Specimen Type: PLASMA Comment: This is an estimate of GFR using the CKD-Epi equation and not a measurement . Results may be impacted by variability in physiology age, sex, serum creatinine. Units for EGFR (2020 CKD-EPI)=mL /min/1.73 square meters. Ordering Provider: BHAVNA BARNES Report Released Date/Time: May 14, 2023 11:50 AM Reporting Lab: [place] [address] [place] [address] Performing Lab: [address] [place] [address] [facility] LIPID PROFILE TRIGLYCERI DE [MASS/VOLU ME] IN SERUM OR PLASMA 105 mg/dL 0 - 149 08/20 Specimen Type: PLASMA Comment: This is an estimate of GFR using the CKD-Epi equation and not a measurement . Results may be impacted by variability in physiology age, sex, serum creatinine. Units for EGFR (2020 CKD-EPI)=mL /min/1.73 square meters. Ordering Provider: BHAVNA BARNES Report Released Date/Time: May 14, 2023 11:50 AM Reporting Lab: [address] [place] [address] Performing Lab: [address] [place] [address] [facility] LIPID PROFILE CHOLESTERO L IN HDL [MASS/VOLU ME] IN SERUM OR PLASMA 38 mg/dL 40 08/20 L Specimen Type: PLASMA Comment: This is an estimate of GFR using the CKD-Epi equation and not a measurement . Results may be impacted by variability in physiology age, sex, serum creatinine. Units for EGFR (2020 CKD-EPI)=mL /min/1.73 square meters. Ordering Provider: BHAVNA BARNES Report Released Date/Time: May 14, 2023 11:50 AM Reporting Lab: [place] [address] [place] [place] [address] Performing Lab: [address] [place] [address] [facility] LIPID PROFILE CHOLESTERO L IN LDL [MASS/VOLU ME] IN SERUM OR PLASMA BY CALCULATICary Wolfe 30 mg/dL 0 - 99 08/20 Specimen Type: PLASMA Comment: This is an estimate of GFR using the CKD-Epi equation and not a measurement . Results may be impacted by variability in physiology age, sex, serum creatinine. Units for EGFR (2020 CKD-EPI)=mL /min/1.73 square meters. Ordering Provider: BHAVNA BARNES Report Released Date/Time: May 14, 2023 11:50 AM Reporting Lab: [address] [address] Performing Lab: [address] [address] [facility] LIPID PROFILE CHOLESTERO L IN LDL [MASS/VOLU ME] IN SERUM OR PLASMA BY DIRECT ASSAY canc 08/20 Specimen Type: PLASMA Comment: This is an estimate of GFR using the CKD-Epi equation and not a measurement . Results may be impacted by variability in physiology age, sex, serum creatinine. Units for EGFR (2020 CKD-EPI)=mL /min/1.73 square meters. Ordering Provider: BHAVNA BARNES Report Released Date/Time: May 14, 2023 11:50 AM Reporting Lab: [address] [address] Performing Lab: [address] [address] [facility] OCCULT BLOOD FIT X1 SCREEN (676) HEMOGLOBIN .GASTROINT ESTINAL.LO WER [PRESENCE] IN STOOL BY IMMUNOASSA Y Positive 09/01 [facility] Specimen Type: FECES No comment entered. Ordering Provider: ROBB JETT Report Released Date/Time: Aug 16, 2022 06:27 AM Reporting Lab: [address] [address] Performing Lab: [address] [address] [facility] VITAMIN D 25-HYDRO XY TEST (TOTAL) 25-HYDROXY VITAMIN D3 [MASS/VOLU ME] IN SERUM OR PLASMA 23.9 ng/mL 30.0 - 100.0 08/16 L Specimen Type: SERUM Comment: VITD TOT: <20 ng/mL - Deficiency VITD TOT: 20-30 ng/mL - Insufficien cy VITD TOT: 30-100 ng/mL - Sufficiency VITD TOT: >100 ng/mL - Toxicity VITD TOT: VITD TOT: Samples containing fluorescein dye can produce falsely VITD TOT: elevated values VITD TOT: when tested with the [employer] Vitamin D assay. Ordering Provider: ROBB JETT Report Released Date/Time: Aug 16, 2022 06:27 AM Reporting Lab: [address] [address] Performing Lab: [place] [address] [facility] [address] [facility] HEPATITI S C Ab (Screeni ng) HEPATITIS C VIRUS AB [PRESENCE] IN SERUM Nonreact derrick 08/16 Specimen Type: SERUM No comment entered. Ordering Provider: ROBB JETT Report Released Date/Time: Aug 16, 2022 02:18 PM Reporting Lab: [address] [address] Performing Lab: [address] [address] [facility] BASIC METABOLI C CREATININE [MASS/VOLU ME] IN SERUM OR PLASMA 1.03 mg/dL .67 - 1.17 08/16 Specimen Type: PLASMA Comment: This is an estimate of GFR using the CKD-Epi equation (2020) and not a measurement . Results may be impacted by variability in physiology, age, sex, serum creatinine. Ordering Provider: ROBB JETT Report Released Date/Time: Aug 16, 2022 06:27 AM Reporting Lab: [address] [address] Performing Lab: [address] [place] [address] [facility] BASIC METABOLI C UREA NITROGEN [MASS/VOLU ME] IN SERUM OR PLASMA 17 mg/dL 7 - 21 08/16 Specimen Type: PLASMA Comment: This is an estimate of GFR using the CKD-Epi equation (2020) and not a measurement . Results may be impacted by variability in physiology, age, sex, serum creatinine. Ordering Provider: ROBB JETT Report Released Date/Time: Aug 16, 2022 06:27 AM Reporting Lab: [facility] [address] [place] [address] Performing Lab: [facility] [address] [place] [address] [facility] BASIC METABOLI C GLUCOSE [MASS/VOLU ME] IN SERUM OR PLASMA 88 mg/dL 70 - 99 08/16 Specimen Type: PLASMA Comment: This is an estimate of GFR using the CKD-Epi equation (2020) and not a measurement . Results may be impacted by variability in physiology, age, sex, serum creatinine. Ordering Provider: ROBB JETT Report Released Date/Time: Aug 16, 2022 06:27 AM Reporting Lab: [facility] [address] [place] [place] [address] Performing Lab: [place] [address] [place] [place] [address] [facility] BASIC METABOLI C SODIUM [MOLES/VOL UME] IN SERUM OR PLASMA 136 mmol/L 136 - 145 08/16 Specimen Type: PLASMA Comment: This is an estimate of GFR using the CKD-Epi equation (2020) and not a measurement . Results may be impacted by variability in physiology, age, sex, serum creatinine. Ordering Provider: ROBB JETT Report Released Date/Time: Aug 16, 2022 06:27 AM Reporting Lab: [facility] [address] [place] [address] Performing Lab: [place] [address] [place] [place] [address] [facility] BASIC METABOLI C POTASSIUM [MOLES/VOL UME] IN SERUM OR PLASMA 3.8 mmol/L 3.5 - 4.7 08/16 Specimen Type: PLASMA Comment: This is an estimate of GFR using the CKD-Epi equation (2020) and not a measurement . Results may be impacted by variability in physiology, age, sex, serum creatinine. Ordering Provider: ROBB JETT Report Released Date/Time: Aug 16, 2022 06:27 AM Reporting Lab: [facility] [address] [place] [place] [address] Performing Lab: [facility] [address] [place] [place] [address] [facility] BASIC METABOLI C CHLORIDE [MOLES/VOL UME] IN SERUM OR PLASMA 105 mmol/L 98 - 107 08/16 Specimen Type: PLASMA Comment: This is an estimate of GFR using the CKD-Epi equation (2020) and not a measurement . Results may be impacted by variability in physiology, age, sex, serum creatinine. Ordering Provider: ROBB JETT Report Released Date/Time: Aug 16, 2022 06:27 AM Reporting Lab: [address] [address] Performing Lab: [address] [address] [facility] BASIC METABOLI C CARBON DIOXIDE, TOTAL [MOLES/VOL UME] IN SERUM OR PLASMA 25 mmol/L 21 - 32 08/16 Specimen Type: PLASMA Comment: This is an estimate of GFR using the CKD-Epi equation (2020) and not a measurement . Results may be impacted by variability in physiology, age, sex, serum creatinine. Ordering Provider: ROBB JETT Report Released Date/Time: Aug 16, 2022 06:27 AM Reporting Lab: [address] [address] Performing Lab: [address] [address] [facility] BASIC METABOLI C CALCIUM [MASS/VOLU ME] IN SERUM OR PLASMA 8.8 mg/dL 8.5 - 10.1 08/16 Specimen Type: PLASMA Comment: This is an estimate of GFR using the CKD-Epi equation (2020) and not a measurement . Results may be impacted by variability in physiology, age, sex, serum creatinine. Ordering Provider: ROBB JETT Report Released Date/Time: Aug 16, 2022 06:27 AM Reporting Lab: [address] [address] Performing Lab: [address] [address] [facility] BASIC METABOLI C ANION GAP IN SERUM OR PLASMA 10 mmol/L 10 - 20 08/16 Specimen Type: PLASMA Comment: This is an estimate of GFR using the CKD-Epi equation (2020) and not a measurement . Results may be impacted by variability in physiology, age, sex, serum creatinine. Ordering Provider: ROBB JETT Report Released Date/Time: Aug 16, 2022 06:27 AM Reporting Lab: [place] [address] [place] [address] Performing Lab: [place] [address] [place] [address] [facility] BASIC METABOLI C UREA NITROGEN/C REATININE [MASS RATIO] IN SERUM OR PLASMA 16.5 {ratio} 10 - 20 08/16 Specimen Type: PLASMA Comment: This is an estimate of GFR using the CKD-Epi equation (2020) and not a measurement . Results may be impacted by variability in physiology, age, sex, serum creatinine. Ordering Provider: ROBB JETT Report Released Date/Time: Aug 16, 2022 06:27 AM Reporting Lab: [place] [address] [place] [address] Performing Lab: [address] [place] [address] [facility] BASIC METABOLI C GLOMERULAR FILTRATION RATE/1.73 SQ M.PREDICTE D [VOLUME RATE/AREA] IN SERUM, PLASMA OR BLOOD BY CREATININE -BASED FORMULA (CKD-EPI) 80 60 08/16 Specimen Type: PLASMA Comment: This is an estimate of GFR using the CKD-Epi equation (2020) and not a measurement . Results may be impacted by variability in physiology, age, sex, serum creatinine. Ordering Provider: ROBB JETT Report Released Date/Time: Aug 16, 2022 06:27 AM Reporting Lab: [place] [address] [place] [address] Performing Lab: [address] [place] [address] [facility] Vital Signs Combined list of inpatient and outpatient Vital Signs from Department of Defense and Veterans Affairs, ranging from 12 months to all on record, depending upon the facility. Vital Sign Value Date Comments Source SYSTOLIC BLOOD PRESSURE 138 08/21/2023 10:00:54 [facility] DIASTOLIC BLOOD PRESSURE 86 08/21/2023 10:00:54 [facility] PULSE OXIMETRY 97 08/21/2023 10:00:54 [facility] WEIGHT 218 08/21/2023 10:00:54 [facility] BMI 30 kg/m2 08/21/2023 10:00:54 [facility] PAIN 0 08/21/2023 10:00:54 [facility] HEIGHT 71.2 08/21/2023 10:00:54 [facility] TEMPERATURE 97.7 08/21/2023 10:00:54 [facility] PULSE 60 08/21/2023 10:00:54 [facility] RESPIRATION 14 08/21/2023 10:00:54 [facility] SYSTOLIC BLOOD PRESSURE 132 06/19/2023 12:53:28 [facility] DIASTOLIC BLOOD PRESSURE 82 06/19/2023 12:53:28 [facility] PULSE OXIMETRY 97 06/19/2023 12:53:28 [facility] WEIGHT 219 06/19/2023 12:53:28 [facility] BMI 31 kg/m2 06/19/2023 12:53:28 [facility] PAIN 0 06/19/2023 12:53:28 [facility] TEMPERATURE 97.6 06/19/2023 12:53:28 [facility] PULSE 60 06/19/2023 12:53:28 [facility] RESPIRATION 16 06/19/2023 12:53:28 [facility] Encounters Combined list of: 1) Encounters from Department of [facility] Affairs facilities going backup to the last 18 months, not all [place] inpatient encounters are included; 2) Encounters from the Department of Defense facilities going backup to 280 months. Location Location Details Encounter Type Encounter Number Reason For Visit Attending Provider ADM Date DC Date Status Disposition Source [facility] Outpatient Encounter [id number] 12/17 [facility] Outpatient Encounter [id number] RAOUL BARNES 03/18 [facility] Outpatient Encounter [id number] 04/02 [facility] Outpatient Encounter [id number] 04/09 [facility] [place] [facility] Outpatient Encounter [id number] Betty DAVIS 05/08 [facility] En[facility] [id number] 05/10 [facility] Outpatient Encounter [id number] 06/12 [facility] HC PRO PHONE CALL 21-30 MIN [id number] Diagnos is: ICD-10- CM Z71.89 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 martinez WESLEY PEACOCK BETSY Vyas 06/18 [facility] Outpatient Encounter [id number] 06/19 [facility] OFFICE O/P EST LOW 20 MIN [id number] Diagnos is: ICD-10- CM M65.4 Radial styloid tenosyn ovitis [de Quervai n] KRYSTIAN NAGEL 06/19 [facility] Outpatient Encounter [id number] 6.06/20 [facility] Outpatient Encounter [id number] 6.06/20 [facility] Outpatient Encounter [id number] 06/30 [facility] Outpatient Encounter [id number] 6.08/20 [facility] OFFICE O/P EST LOW 20 MIN [id number] Diagnos is: ICD-10- CM E78.5 Hyperli pidemia , unspeci fied RAOUL BARNES 08/20 [facility] UNLISTED SPEC DERM SVC/PX [id number] Diagnos is: ICD-10- CM Z13.89 Encount er for screeni ng for other disorde r Pipe RENO 08/20 [facility] Outpatient Encounter [id number]. 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 Social History Type Response Date Comment Sourc e Tobacco smoking status NHIS VA-TOBACCO FORMER USER 08/21/2023 [facility] History of tobacco use HI-TOBACCO QUIT 1 5 YRS OR MORE 08/21/2023 [facility] History of tobacco use VA-TOBACCO FORMER USER 08/16/2022 [facility] History of tobacco use VA-TOBACCO FORMER USER 08/14/2021 [facility] History of tobacco use VA-TOBACCO FORMER USER 08/23/2020 [facility] History of tobacco use VA-TOBACCO FORMER USER 08/04/2018 [facility] History of tobacco use QUIT TOBACCO >7 YEARS AGO 8 [facility] Plan of Care List of future care activities from Department of [facility] facilities. Additional future care activities may be listed in the Assessment and Plan section. Date/Time Care Activity Care Activity Detail Facili ty 08/11/2024 AMBULATORY - MEDICINE AMBULATORY - MEDICI NE [facility] 07/20/2024 Laboratory - Chemistry Order BASIC METABO LIC MINT PLASMA SP [facility] 07/20/2024 Laboratory - Chemistry Order AST(SGOT) MO NT PLASMA SP [facility] 07/20/2024 Laboratory - Chemistry Order ALT(SGPT) MO NT PLASMA SP [facility] 07/20/2024 Laboratory - Chemistry Order LIPID PROFIL E MINT PLASMA SP [facility] 07/20/2024 Laboratory - Chemistry Order CBC WITH DIFFERENTIAL LAVENDER TOP BLOOD SP [facility] 07/20/2024 Laboratory - Chemistry Order PRO STATE SPECIFIC ANTIGEN GOLD(SST) SERUM SP [facility]
[2024-06-08 11:38] VITALS: BP 139/84; PULSE 60; RESP 16; TEMP 36.7; O2SAT 96; BMI 29.3
--- NOTE | 2024-06-08 11:56 | ED_ITS ---
HPI - Chest Pain General Chief Complaint: Chest Pain Stated Complaint: Chest Pain Time Seen by Provider: 06/08/24 11:37 History of Present Illness HPI narrative: This 69-year-old male comes in reporting some chest discomfort that comes and goes randomly over the past week or so. He states that it is not related to exertion. He seems to feel it more when he is sitting doing nothing. He reports that he can reproduce the pain a bit when bending forward with his head and torso when in a sitting position. He does not describe any recent injury event or strenuous activity. He does not have any nausea, vomiting, lightheadedness, shortness of breath, diaphoresis. He does not have any exercise intolerance and states that exertional activities do not produce any symptoms. As for risk factors he is taking a medicine for cholesterol but has no other such risk factors. Related Data Home Medications ?Medication ?Instructions ?Recorded ?Confirmed rosuvastatin 20 mg tablet (Crestor) 20 mg PO DAILY 03/29/23 06/08/24 aspirin 81 mg capsule 81 mg PO DAILY 06/08/24 06/08/24 Previous Rx's ?Medication ?Instructions ?Recorded ketorolac 10 mg tablet 10 mg PO Q8H 5 days #15 tabs 06/08/24 Allergies Allergy/AdvReac Type Severity Reaction Status Date / Time No Known Drug Allergies Allergy Verified 01/27/24 10:36 Review of Systems Status of ROS Reports: 10 or more systems reviewed and unremarkable except as noted in History and below Narrative Constitutional: No fevers, no weight gain or loss. Eyes: No discharge. No vision changes. HENT: No congestion, no sore throat, no ear pain. Cardiovascular: No palpitations. Respiratory: No shortness of breath, no wheezes, no cough. Gastrointestinal: No abdominal pain, no vomiting, no diarrhea. Genitourinary: No dysuria, no hematuria. Musculoskeletal: Normal range of motion. Skin: No rashes, no pruritis. Neurological: No dizziness, weakness, sensory change, speech change. Endo/Heme/Allergies: No bruising or bleeding. No polydipsia. Pysch: no suicidality, no anxiety, no insomnia. All other systems reviewed and are negative. PFSH PFS Social History Smoking Status: Current some day smoker What tobacco products do you use: cigars How often do you have a drink containing alcohol: monthly or less How often do you have six or more drinks on one occasion: Never AUDIT-C Alcohol total score: 1 Non-prescribed substance use: denies use Exam Narrative Exam Narrative: Constitutional: Well-developed, well-nourished, no acute distress. HEENT: Normocephalic, atraumatic. Neck: Normal range of motion. Nontender. Supple. Heart: Regular. No murmurs. Normal rate. Intact distal pulses. Lungs: Clear to auscultation. No chest discomfort. No wheezes, rhonchi, or rales. Abdomen: Normal bowel sounds. Nontender. No rebound tenderness. Genitalia: Deferred. Back: No midline tenderness. Normal range of motion. Extremities: Normal range of motion. No injury. Skin: Intact. No rash. Warm. No erythema or pallor. Neurologic: No altered sensation. No weakness. Alert and oriented. Psychiatric: No suicidality. No anxiety or depression. No insomnia. Nursing notes and vitals signs are reviewed. Const Vital Signs, click to edit/add: Vital Signs - 24 hr 06/08/24 11:38 Temperature 98.0 F Pulse Rate [Pulse Oximeter] 60 Respiratory Rate 16 Blood Pressure [Right Upper Arm] 139/84 Pulse Oximetry 96 Oxygen Delivery Method Room Air Course Vital Signs Vital signs: Initial Vital Signs Temperature 98.0 F 06/08/24 11:38 Temperature Source Temporal Artery Scan 06/08/24 11:38 Pulse Rate 60 06/08/24 11:38 Respiratory Rate 16 06/08/24 11:38 Blood Pressure 139/84 06/08/24 11:38 Blood Pressure Mean 102 06/08/24 11:38 Blood Pressure Position Sitting 06/08/24 11:38 Pulse Oximetry 96 06/08/24 11:38 Oxygen Delivery Method Room Air 06/08/24 11:38 Vital Signs Temperature 98.0 F 06/08/24 11:38 Pulse Rate 60 06/08/24 11:38 Respiratory Rate 16 06/08/24 11:38 Blood Pressure 139/84 06/08/24 11:38 Pulse Oximetry 96 06/08/24 11:38 Oxygen Delivery Method Room Air 06/08/24 11:38 Temperature 98.0 F 06/08/24 11:38 Pulse Rate 60 06/08/24 11:38 Respiratory Rate 16 06/08/24 11:38 Blood Pressure 139/84 06/08/24 11:38 Pulse Oximetry 96 06/08/24 11:38 Oxygen Delivery Method Room Air 06/08/24 11:38 MDM - Chest Pain MDM Narrative Medical decision making narrative: This patient comes in reporting some chest discomfort on and off over the past week or so. His symptoms are somewhat reproducible. He does not have any other associated symptoms nor does he have exercise intolerance or history of heart disease. He arrives here with normal vital signs. EKG is reassuring as is blood. His troponin returns at 0. It seems that his symptoms are more likely due to chest wall pain. Patient is reassured with these results. He is discha rged home and received a prescription for Toradol. Lab Data Labs: Lab Results 06/08/24 06/08/24 Range/Units 11:56 12:06 WBC 6.89 (4.50-11.00) K/uL RBC 4.89 (4.30-5.90) m/uL Hgb 14.6 (13.5-17.5) gm/dL Hct 42.7 (37.0-53.0) % MCV 87 (80-100) fL MCH 30 (26-34) pg MCHC 34 (32-36) gm/dL RDW Coeff of En 12.0 (11.5-15.5) % Plt Count 146 (140-440) K/uL Neut % (Auto) 67.0 (42.0-72.0) % Lymph % (Auto) 19.6 L (20-44) % Independence % (Auto) 10.3 (0.0-11.0) % Eos % (Auto) 2.6 (0.0-7.0) % Baso % (Auto) 0.4 (0.0-3.0) % Neut # (Auto) 4.61 (1.7-7.0) K/uL Lymph # (Auto) 1.40 (0.90-2.90) K/uL Independence # (Auto) 0.70 (0.00-0.90) K/UL Eos # (Auto) 0.18 (0.00-0.50) K/uL Baso # (Auto) 0.03 (0.00-0.30) K/uL Abs Immat Gran (auto) 0.01 (0.00-0.30) K/uL Imm/Tot Granulo (auto) 0.1 % Sodium 138 (135-149) mmol/L Potassium 4.1 (3.6-5.1) mmol/L Chloride 108 (96-114) mmol/L Carbon Dioxide 22 (20-32) mmol/L Anion Gap 8 (7-15) mEq/L BUN 15 (7-30) mg/dL Creatinine 1.0 (0.5-1.5) mg/dL Estimated Creat Clear 74.25 Estimated GFR 81 ml/min Glucose 112 (60-115) mg/dL Calcium 8.6 (8.4-10.6) mg/dL POC Troponin I 0.00 L (0.01-0.04) ng/ml ECG Data Attestation: I personally reviewed and interpreted this ECG as follows: Interpretation: Normal sinus rhythm. Rate is 57 beats per minute. There are no ST or T-wave abnormalities. Discharge Plan Discharge Clinical Impression: Chest wall pain Patient Disposition: Home, Self-Care Condition: Stable Additional Instructions: Take medication as needed and indicated. Increase activity as tolerated. Follow up with MD return if worsening. Prescriptions: New ketorolac 10 mg tablet 10 mg PO Q8H 5 Days Qty: 15 0RF No Action aspirin 81 mg capsule 81 mg PO DAILY rosuvastatin [Crestor] 20 mg tablet 20 mg PO DAILY Follow Up/Referrals: Provider,Not a Local [Primary Care Provider] - Stand Alone Forms: [employer] Info Instructions
[2024-06-08 12:28] LABS: Basophils Absolute Auto 0.03 K/uL (0.00-0.30); Basophils Percent Auto 0.4 % (0.0-3.0); Eosinophils Absolute Auto 0.18 K/uL (0.00-0.50); Eosinophils Percent Auto 2.6 % (0.0-7.0); Hematocrit 42.7 % (37.0-53.0); Hemoglobin* 14.6 gm/dL (13.5-17.5); Immature Granulocytes Abs Auto 0.01 K/uL (0.00-0.30); Immature Granulocytes Pct Auto 0.1 %; Lymphocytes Percent Auto 19.6 % (20-44); Mean Corpuscular HGB Conc 34 gm/dL (32-36); Mean Corpuscular Hemoglobin 30 pg (26-34); Mean Corpuscular Volume 87 fL (80-100); Monocytes Percent Auto 10.3 % (0.0-11.0); Neutrophils Absolute Auto 4.61 K/uL (1.7-7.0); Platelet Count* 146 K/uL (140-440); Red Blood Count 4.89 m/uL (4.30-5.90); White Blood Count* 6.89 K/uL (4.50-11.00)
--- OUTSIDE RECORDS SUMMARY | 2024-06-08 12:29 | XMS_ITS | Clinical Summary ---
Author Organization [facility] Address [address] [place] [address] Care Team Providers Care Engineering Technical Writer Name Role Phone Elsewhere, Pcp Primary Care Provider Unavailabl e Source Comments Patient records contain information from all sites at [facility]. For routine questions regarding patient records, call [phone] during business hours, M-F 8:00 AM - 5:00 PM Central Time. Record requests for emergency care only can be directed to [phone] at any time.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 - 12/05/2022 1:01 PM CDT [facility] Patient Name: Jonathon Horton Procedure Date: [...] Diverticulosis in the sigmoid colon. - Patent uxbz-jy-aesa ileo-colonic anastomosis, characterized byhealthy appearing mucosa. Recommendation: [...] retroflexion. There was evidence of a prior nhug-xl-[id number] ileo-colonic anastomosisin the ascending colon. This was [...] bowel preparation was evaluated using the BBPS ([place] BowelPreparation Scale) with scores of: Right Colon [...] Panel (08/08/2018) Triglycerides 250(A) 40 - 160 LEAD INJECTION MOLD TECHNICIAN AL NON-INTERFACE D LAB Cholesterol, Total 128 0 - 200 E XTERNAL NON-INTERFACE D LAB Cholesterol, HDL, S 33(A) 35 - 70 EXTERNAL NON-INTERFACE D LAB LDL Cholesterol 45 EXTE RNAL NON-INTERFACE D LAB Blood (Blood, Venous) Ordering Provider External M.D. LAB BLOOD NON AD D-ON Final Result Performing Organization Address [facility] Co de Phone Number EXTERNAL NON-INTERFACED LAB [address] [place] [address] * Basic Metabolic Panel (08/08/2018) Glucose 112 [...] BLOOD ADD-ON Final Result Performing Organization Address [facility] Co de Phone Number EXTERNAL NON-INTERFACED LAB [address] [place] [address] from Last 3 Months or Most Recently Relevant to Health Maintenance Insurance [facility] Advance Directives For more information, please contact: [phone] * Full Code (Latest Code Status on File) Date Activated Date Inactivated Comments 12/05/2022 1:43 PM 12/05/2022 3:52 PM Question Answer Comments Full Code: Discussed * Full Code Date Activated Date Inactivated Comments 12/05/2022 10:58 AM 12/05/2022 1:43 PM Question Answer Comments Full Code: Discussed Care Teams Engineering Technical Writer Relationship Specialty Start Date End Date Elsewhere, Pcp PCP - General 12/04/21
--- OUTSIDE RECORDS SUMMARY | 2024-06-08 12:29 | XMS_ITS | Clinical Summary ---
Author Organization [facility] Address [address] [place] [address] Care Team Providers Care Lock Expert Name Role Phone Giovanny Villafuerte MD Primary Care Provider [phone] Source Comments You are receiving this document as you are listed as the primary care provider,follow-up provider, or the patient has been referred to you for consultation.This is in compliance with the Medicare and[facility] EHR Incentive Program,which states Providers who transition their patient to another setting of careor provider of care or refers their patient to another provider of care shouldprovide summary care record for each transition of care or referral. [facility] All[facility] No known active allergies Medications Medication [...] 144/84 10/13/2020 1:35 PM CDT monitoring at [place] Pulse 71 10/13/2020 1:35 PM CDT Temperature [...] - 12/17/2012 11:08 AM CDT Performed at [facility], [address] [place] [address] Giovanny Villafuerte MD LAB_1 HP CONVERSION * [...] Recently Relevant to Health Maintenance Care Teams Lock Expert Relationship Specialty Start [place] [address] [place] [address] PCP - General 07/31/10
--- OUTSIDE RECORDS SUMMARY | 2024-06-08 12:29 | XMS_ITS | Clinical Summary ---
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 Not on file Not on file Not on file Obstetrics History Last Filed Vital Signs Vital Sign Reading Time Taken Comments Blood Pressure 154/89 04/18/2016 8:59 AM STUDENT OUTREACH COORDINATOR Pulse 64 04/18/2016 8:59 AM STUDENT OUTREACH COORDINATOR Temperature 36.6 C (97.9 F) 12/20/2015 8:03 AM CDT Respiratory Rate 18 02/24/2015 8:43 AM CDT Oxygen Saturation 98% 12/20/2015 8:03 AM CDT Inhaled Oxygen Concentration - - Weight 101.5 kg (223 lb 12.8 oz) 04/18/2016 8:59 AM STUDENT OUTREACH COORDINATOR Height 180.3 cm (5' 11) 04/18/2016 8:59 AM STUDENT OUTREACH COORDINATOR Body Mass Index 31.21 04/18/2016 8:59 AM STUDENT OUTREACH COORDINATOR Plan of Treatment Health Maintenance Due Date [...] series) 2030 Tdap Completed 12/17/2012 Care Teams Corporate Strategist Relationship Specialty Start Date End Date Pcp, No . PCP - General 06/20/22
--- OUTSIDE RECORDS SUMMARY | 2024-06-08 12:29 | XMS_ITS | Continuity of Care Document ---
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, non-neoplastic Active Diagnosis [facility] Diagnosis: ICD-10-CM L98.9 Disorder of the skin and subcutaneous tissue, unspecified Active Diagnosis [facility] Diagnosis: ICD-10-CM L82.1 Other seborrheic keratosis Active Diagnosis [facility] Diagnosis: ICD-10-CM Z13.89 Encounter for screening for other disorder Active Diagnosis [facility] Diagnosis: ICD-10-CM E78.5 Hyperlipidemia, unspecified Active Diagnosis [facility] Diagnosis: ICD-10-CM M65.4 Radial styloid tenosynovitis [de Quervain] Active Diagnosis [facility] Diagnosis: ICD-10-CM Z71.89 Other specified counseling Active Diagnosis [facility] Medications Combined list of outpatient medications from [...] OF TAKING, CASUES DROWSINE SS ORAL 07/19/2023 [id number] LOCHER,ER IC H 2023 30 [facility] FAMOTIDINE 20MG TAB TAKE ONE TABLET BY MOUTH DAILY PRN ORAL ACTIVE MOLLYDIAMANTE WONG RLENE A 2023 [facility] ROSUVASTATI N CA 20MG TAB TAKE ONE-HALF TABLET BY MOUTH EVERY EVENING *TO LOWER CHOLESTE ROL* ORAL ACTIVE 08/21/2024 [id number] 4 MOLLYDIAMANTE WONG RLENE A 2023 45 [facility] ROSUVASTATI N CA 20MG TAB TAKE ONE-HALF TABLET BY MOUTH EVERY EVENING *TO LOWER CHOLESTE ROL* ORAL DISCONT INUED 08/19/2023 [id number] DOUG JETT M 2022 45 [facility] Immunizations Combined list of available immunizations from the Department of Defense and Veterans Affairs facilities. 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 Source ZOSTER RECOMBINANT 2 2018 [...] Reference Range Date Interpretation Specimen Comments Source ALT(SGPT ) ALANINE AMINOTRANS FERASE [ENZYMATIC ACTIVITY/V [...] May 14, 2023 11:50 AM Reporting Lab: [address] [address] Performing Lab: [address] [address] [facility] AST(SGOT ) ASPARTATE AMINOTRANS FERASE [...] May 14, 2023 11:50 AM Reporting Lab: [address] [address] Performing Lab: [address] [address] [facility] BASIC METABOLI C CREATININE [MASS/VOLU [...] May 14, 2023 11:50 AM Reporting Lab: [address] [address] Performing Lab: [address] [address] [facility] BASIC METABOLI C UREA NITROGEN [...] May 14, 2023 11:50 AM Reporting Lab: [address] [place] [address] Performing Lab: [address] [facility] [address] [facility] BASIC METABOLI C GLUCOSE [MASS/VOLU [...] May 14, 2023 11:50 AM Reporting Lab: [address] [address] Performing Lab: [place] [phone] [facility] BASIC METABOLI C SODIUM [MOLES/VOL [...] May 14, 2023 11:50 AM Reporting Lab: [address] [address] Performing Lab: [place] [phone] [facility] BASIC METABOLI C POTASSIUM [MOLES/VOL [...] May 14, 2023 11:50 AM Reporting Lab: [address] [address] Performing Lab: [address] [address] [facility] BASIC METABOLI C CHLORIDE [MOLES/VOL [...] May 14, 2023 11:50 AM Reporting Lab: [address] [address] Performing Lab: [address] [address] [facility] BASIC METABOLI C CARBON DIOXIDE, [...] May 14, 2023 11:50 AM Reporting Lab: [address] [address] Performing Lab: [address] [address] [facility] BASIC METABOLI C CALCIUM [MASS/VOLU [...] May 14, 2023 11:50 AM Reporting Lab: [address] [address] Performing Lab: [address] [address] [facility] BASIC METABOLI C ANION GAP IN SERUM OR PLASMA 6 mmol/L - 08/20 Specimen Type: PLASMA Comment: This is an estimate of GFR using the CKD-Epi equation and not a measurement . Results may be impacted by variability in physiology age, sex, serum creatinine. Units for EGFR (2020 CKD-EPI)=mL /min/1.73 square meters. Ordering Provider: BHAVNA BARNES Report Released Date/Time: May 14, 2023 11:50 AM Reporting Lab: [address] [address] Performing Lab: [address] [address] [facility] BASIC METABOLI C UREA NITROGEN/C [...] May 14, 2023 11:50 AM Reporting Lab: [address] [address] Performing Lab: [address] [address] [facility] BASIC METABOLI C GLOMERULAR FILTRATION [...] May 14, 2023 11:50 AM Reporting Lab: [address] [address] Performing Lab: [address] [place] [address] [facility] CBC HEMOGRAM ONLY LEUKOCYTES [#/VOLUME] IN BLOOD BY AUTOMATED COUNT 7.9 10*3/uL 4.0 - 11.0 08/20 Specimen Type: BLOOD No comment entered. Ordering Provider: BHAVNA BARNES Report Released Date/Time: May 14, 2023 11:50 AM Reporting Lab: [facility] [address] [facility] [address] Performing Lab: [place] [address] [address] [facility] [address] [facility] CBC HEMOGRAM ONLY ERYTHROCYT ES [#/VOLUME] IN BLOOD BY AUTOMATED COUNT 5.01 10*6/uL 4.20 - 5.70 08/20 Specimen Type: BLOOD No comment entered. Ordering Provider: BHAVNA BARNES Report Released Date/Time: May 14, 2023 11:50 AM Reporting Lab: [place] [address] [address] [facility] [address] Performing Lab: [place] [address] [address] [facility] [address] [facility] CBC HEMOGRAM ONLY HEMOGLOBIN [MASS/VOLU ME] IN BLOOD 14.8 g/dL 13.0 - 17.0 08/20 Specimen Type: BLOOD No comment entered. Ordering Provider: BHAVNA BARNES Report Released Date/Time: May 14, 2023 11:50 AM Reporting Lab: [place] [address] [address] [facility] [address] Performing Lab: [place] [address] [address] [facility] [address] [facility] CBC HEMOGRAM ONLY HEMATOCRIT [VOLUME FRACTION] OF BLOOD BY AUTOMATED COUNT 44.3 40.0 - 51.0 08/20 Specimen Type: BLOOD No comment entered. Ordering Provider: BHAVNA BARNES Report Released Date/Time: May 14, 2023 11:50 AM Reporting Lab: [place] [address] [address] [facility] [address] Performing Lab: [place] [address] [address] [facility] [address] [facility] CBC HEMOGRAM ONLY MCV [ENTITIC VOLUME] BY AUTOMATED COUNT 88.4 fL 82.0 - 99.0 08/20 Specimen Type: BLOOD No comment entered. Ordering Provider: BHAVNA BARNES Report Released Date/Time: May 14, 2023 11:50 AM Reporting Lab: [facility] [address] [facility] [address] Performing Lab: [facility] [address] [facility] [address] [facility] CBC HEMOGRAM ONLY MCH [ENTITIC MASS] BY AUTOMATED COUNT 29.5 pg 27.0 - 34.0 08/20 Specimen Type: BLOOD No comment entered. Ordering Provider: BHAVNA BARNES Report Released Date/Time: May 14, 2023 11:50 AM Reporting Lab: [facility] [address] [facility] [address] Performing Lab: [place] [address] [address] [facility] [address] [facility] CBC HEMOGRAM ONLY MCHC [MASS/VOLU ME] BY AUTOMATED COUNT 33.4 g/dL 31.0 - 37.0 08/20 Specimen Type: BLOOD No comment entered. Ordering Provider: BHAVNA BARNES Report Released Date/Time: May 14, 2023 11:50 AM Reporting Lab: [facility] [address] [facility] [address] Performing Lab: [place] [address] [address] [facility] [address] [facility] CBC HEMOGRAM ONLY PLATELETS [#/VOLUME] IN BLOOD BY AUTOMATED COUNT 197 10*3/uL 130 - 400 08/20 Specimen Type: BLOOD No comment entered. Ordering Provider: BHAVNA BARNES Report Released Date/Time: May 14, 2023 11:50 AM Reporting Lab: [facility] [address] [facility] [address] Performing Lab: [place] [address] [address] [facility] [address] [facility] CBC HEMOGRAM ONLY PLATELET MEAN VOLUME [ENTITIC VOLUME] IN BLOOD BY AUTOMATED COUNT 10.7 fL 8.0 - 12.0 08/20 Specimen Type: BLOOD No comment entered. Ordering Provider: BHAVNA BARNES Report Released Date/Time: May 14, 2023 11:50 AM Reporting Lab: [facility] [address] [facility] [address] Performing Lab: [facility] [address] [facility] [address] [facility] CBC HEMOGRAM ONLY ERYTHROCYT E DISTRIBUTI ON WIDTH [RATIO] BY AUTOMATED COUNT 13.2 < 15.0 - 15.0 08/20 Specimen Type: BLOOD No comment entered. Ordering Provider: BHAVNA BARNES Report Released Date/Time: May 14, 2023 11:50 AM Reporting Lab: [place] [address] [address] [facility] [address] Performing Lab: [place] [address] [address] [facility] [address] [facility] CBC HEMOGRAM ONLY NUCLEATED ERYTHROCYT ES [#/VOLUME] IN BLOOD BY AUTOMATED COUNT <0.0110* 3/uL 0.000 - 0.012 08/20 Specimen Type: BLOOD No comment entered. Ordering Provider: BHAVNA BARNES Report Released Date/Time: May 14, 2023 11:50 AM Reporting Lab: [place] [address] [address] [facility] [address] Performing Lab: [place] [address] [address] [facility] [address] [facility] CBC HEMOGRAM ONLY NUCLEATED ERYTHROCYT ES [PRESENCE] IN BLOOD BY AUTOMATED COUNT 0.0 /100{WBC s} 0.0 - 0.2 08/20 Specimen Type: BLOOD No comment entered. Ordering Provider: BHAVNA BARNES Report Released Date/Time: May 14, 2023 11:50 AM Reporting Lab: [place] [address] [address] [facility] [address] Performing Lab: [place] [address] [address] [facility] [address] [facility] LIPID PROFILE CHOLESTERO L [MASS/VOLU [...] May 14, 2023 11:50 AM Reporting Lab: [address] [facility] [address] Performing Lab: [address] [address] [facility] LIPID PROFILE TRIGLYCERI DE [MASS/VOLU [...] May 14, 2023 11:50 AM Reporting Lab: [address] [address] Performing Lab: [address] [address] [facility] LIPID PROFILE CHOLESTERO L IN [...] May 14, 2023 11:50 AM Reporting Lab: [address] [facility] [address] Performing Lab: [address] [address] [facility] LIPID PROFILE CHOLESTERO L IN LDL [MASS/VOLU ME] IN SERUM OR PLASMA BY CALCULATIO N 30 mg/dL 0 - 99 08/20 Specimen Type: PLASMA Comment: This is an estimate of GFR using the CKD-Epi equation and not a measurement . Results may be impacted by variability in physiology age, sex, serum creatinine. Units for EGFR (2020 CKD-EPI)=mL /min/1.73 square meters. Ordering Provider: BHAVNA BARNES Report Released Date/Time: May 14, 2023 11:50 AM Reporting Lab: [address] [address] Performing Lab: [facility] [address] [facility] [address] [facility] LIPID PROFILE CHOLESTERO L IN LDL [MASS/VOLU ME] IN SERUM OR PLASMA BY DIRECT ASSAY [facility] 08/20 Specimen Type: PLASMA Comment: This is an estimate of GFR using the CKD-Epi equation and not a measurement . Results may be impacted by variability in physiology age, sex, serum creatinine. Units for EGFR (2020 CKD-EPI)=mL /min/1.73 square meters. Ordering Provider: BHAVNA BARNES Report Released Date/Time: May 14, 2023 11:50 AM Reporting Lab: [address] [address] Performing Lab: [address] [address] [facility] PROSTATE SPECIFIC ANTIGEN PROSTATE SPECIFIC AG [MASS/VOLU ME] IN SERUM OR PLASMA 0.60 ng/mL 0.00 - 4.00 08/20 Specimen Type: SERUM Comment: PSA was performed on the Junko Tada Immunoassay Analyzer. Ordering Provider: BHAVNA BARNES Report Released Date/Time: May 14, 2023 11:50 AM Reporting Lab: [address] [address] Performing Lab: [address] [address] [facility] OCCULT BLOOD FIT X1 SCREEN (676) HEMOGLOBIN .GASTROINT ESTINAL.LO WER [PRESENCE] IN STOOL BY IMMUNOASSA Y Positive 09/01 Specimen Type: FECES No comment entered. Ordering Provider: ROBB JETT Report Released Date/Time: Aug 16, 2022 06:27 AM Reporting Lab: [address] [address] Performing Lab: [address] [address] [facility] BASIC METABOLI C CREATININE [MASS/VOLU [...] Aug 16, 2022 06:27 AM Reporting Lab: [place] [address] [address] [facility] [address] Performing Lab: [facility] [address] [facility] [address] [facility] BASIC METABOLI C UREA NITROGEN [...] Aug 16, 2022 06:27 AM Reporting Lab: [place] [address] [address] [facility] [address] Performing Lab: [address] [facility] [address] [facility] BASIC METABOLI C GLUCOSE [MASS/VOLU [...] Aug 16, 2022 06:27 AM Reporting Lab: [place] [address] [address] [facility] [address] Performing Lab: [place] [address] [address] [facility] [address] [facility] BASIC METABOLI C SODIUM [MOLES/VOL [...] Aug 16, 2022 06:27 AM Reporting Lab: [place] [address] [address] [facility] [address] Performing Lab: [address] [address] [facility] BASIC METABOLI C POTASSIUM [MOLES/VOL [...] Aug 16, 2022 06:27 AM Reporting Lab: [address] [address] Performing Lab: [address] [address] [facility] BASIC METABOLI C CHLORIDE [MOLES/VOL [...] Aug 16, 2022 06:27 AM Reporting Lab: [address] [address] Performing Lab: [address] [address] [facility] BASIC METABOLI C CARBON DIOXIDE, [...] Aug 16, 2022 06:27 AM Reporting Lab: [address] [address] Performing Lab: [address] [address] [facility] BASIC METABOLI C CALCIUM [MASS/VOLU [...] Aug 16, 2022 06:27 AM Reporting Lab: [place] [address] [address] [facility] [address] Performing Lab: [address] [address] [facility] BASIC METABOLI C ANION GAP IN SERUM OR PLASMA 10 mmol/L - 08/16 Specimen Type: PLASMA Comment: This is an estimate of GFR using the CKD-Epi equation (2020) and not a measurement . Results may be impacted by variability in physiology, age, sex, serum creatinine. Ordering Provider: ROBB JETT Report Released Date/Time: Aug 16, 2022 06:27 AM Reporting Lab: [address] [address] Performing Lab: [address] [facility] [address] [facility] BASIC METABOLI C UREA NITROGEN/C REATININE [MASS RATIO] IN SERUM OR PLASMA 16.5 {ratio} 08/16 Specimen Type: PLASMA Comment: This is an estimate of GFR using the CKD-Epi equation (2020) and not a measurement . Results may be impacted by variability in physiology, age, sex, serum creatinine. Ordering Provider: ROBB JETT Report Released Date/Time: Aug 16, 2022 06:27 AM Reporting Lab: [address] [facility] [address] Performing Lab: [address] [facility] [address] [facility] BASIC METABOLI C GLOMERULAR FILTRATION [...] Aug 16, 2022 06:27 AM Reporting Lab: [address] [address] Performing Lab: [address] [address] [facility] HEPATITI S C Ab (Screeni ng) HEPATITIS C VIRUS AB [PRESENCE] IN SERUM Nonreact derrick 08/16 Specimen Type: SERUM No comment entered. Ordering Provider: ROBB JETT Report Released Date/Time: Aug 16, 2022 02:18 PM Reporting Lab: [address] [address] Performing Lab: [address] [address] [facility] VITAMIN D 25-HYDRO XY TEST [...] values VITD TOT: when tested with the Junko Tada Vitamin D assay. Ordering Provider: ROBB JETT Report Released Date/Time: Aug 16, 2022 06:27 AM Reporting Lab: [address] [address] Performing Lab: [place] [address] [address] [facility] [address] [facility] Vital Signs Combined list of [...] list of: 1) Encounters from Department of [facility] facilities going backup to the last 18 months, not all [place] inpatient encounters are included; 2) Encounters from the Department of Defense facilities going backup to 280 months. Location Location Details Encounter Type Encounter Number Reason For Visit Attending Provider ADM Date DC Date Status Disposition Source [facility] Outpatient Encounter [id number] 12/17 [facility] Outpatient Encounter [id number] RAOUL BARNES 03/18 [facility] Outpatient Encounter [id number] 04/02 [facility] Outpatient Encounter [id number] 04/09 [facility] [place] [facility] Outpatient Encounter [id number] Betty DAVIS 05/08 [facility] Out[facility] Encounter [id number] 05/10 [facility] Outpatient Encounter [id number] 06/12 [facility] HC PRO PHONE CALL 21-30 MIN [id number] Diagnos is: ICD-10- CM Z71.89 Other specifi ed certified addiction counselor martinez WESLEY PEACOCK EBTSY Vyas 06/18 [facility] Outpatient Encounter [id number] 06/19 [facility] OFFICE O/P EST LOW 20 MIN [id number] Diagnos is: ICD-10- CM M65.4 Radial styloid tenosyn ovitis [de Quervai n] KRYSTIAN NAGEL 06/19 [facility] Outpatient Encounter [id number] 6.06/20 [facility] Outpatient Encounter [id number] 6.06/20 [facility] Outpatient Encounter [id number] 06/30 [facility] Outpatient Encounter [id number] 6.08/20 [facility] OFFICE O/P EST LOW 20 MIN [id number] Diagnos is: ICD-10- CM E78.5 Hyperli pidemia , unspeci fied RAOUL BARNES 08/20 [facility] UNLISTED SPEC DERM SVC/PX [id number] Diagnos is: ICD-10- CM Z13.89 Encount er for screeni ng for other disorde r Pipe RENO 08/20 [facility] Outpatient Encounter [id number]. Diagnos is: ICD-10- CM L82.1 Other seborrh eic keratos is Tari ZEE MD 08/20 [facility] Outpatient Encounter [id number] 08/21 [facility] DESTRUCT B9 LESION 1-14 [id number] Diagnos is: ICD-10- CM L98.9 Disorde r of the skin and subcuta neous tissue, unspeci STEPHANIE Perkins JR, PA-C 08/27 [facility] Outpatient Encounter [id number] 10/23 [facility] COMPRE [place]PH EXAM EST PT 1/ [id number] Diagnos is: ICD-10- CM I78.1 Nevus, non-arnol plastic HVEZDA,CAR KERRIE K 01/07 [facility] Outpatient Encounter [id number] 01/20 [facility] Outpatient Encounter [id number] 01/26 [facility] Social History Combined list of available smoking, tobacco, and other social history from Department of Defense and Veterans Affairs facilities. Social History Type Response Date Comment Sourc e Tobacco smoking status NHIS VA-TOBACCO FORMER USER 08/21/2023 [facility] History of tobacco use AL-TOBACCO QUIT 1 5 YRS OR MORE 08/21/2023 [...] of future care activities from Department of [facility] facilities. Additional future care activities may be listed in the Assessment and Plan section. Date/Time Care Activity Care Activity Detail Facili ty 08/11/2024 AMBULATORY - MEDICINE AMBULATORY - MEDICI NE [facility] 07/20/2024 Laboratory - Chemistry Order BASIC METABO LIC MINT PLASMA SP [facility] 07/20/2024 Laboratory - Chemistry Order AST(SGOT) WI NT PLASMA SP [facility] 07/20/2024 Laboratory - Chemistry Order ALT(SGPT) WI NT PLASMA SP [facility] 07/20/2024 Laboratory - Chemistry Order LIPID PROFIL E MINT PLASMA SP [facility] 07/20/2024 Laboratory - Chemistry Order CBC WITH DIFFERENTIAL LAVENDER TOP BLOOD SP [facility] 07/20/2024 Laboratory - Chemistry Order PRO STATE SPECIFIC ANTIGEN GOLD(SST) SERUM SP [facility]
[2024-06-08 12:35] LABS: Slide Review Reflex No
[2024-06-08 12:40] LABS: Chloride* 108 mmol/L (96-114); Potassium* 4.1 mmol/L (3.6-5.1); Sodium* 138 mmol/L (135-149)
[2024-06-08 12:43] LABS: Anion Gap 8 mEq/L (7-15); Carbon Dioxide* 22 mmol/L (20-32); Est. Creatinine Clearance* 74.25; Estimated Glomerular Filt Rate 81 ml/min
[2024-06-08 12:44] LABS: Blood Urea Nitrogen* 15 mg/dL (7-30); Calcium* 8.6 mg/dL (8.4-10.6); Glucose* 112 mg/dL (60-115)
== END 2024-06-08 13:37 | disposition home or self-care (01) ==
PROVIDERS: Emergency Provider Emergency Medicine Emergency Medical Services
DX: R07.9 Chest pain, unspecified (principal)
CPT/HCPCS: 36415; 80048; 84484; 85025; 93005; 99284

== ENCOUNTER 2024-10-15 14:48 | Emergency (ER) | payer MEDICARE, OTHER, SELFPAY ==
--- OUTSIDE RECORDS SUMMARY | 2024-01-08 05:30 | XMS_ITS | Encounter Summary ---
Author Name [facility] [place] [facility] [place] [facility] [place] Address [address] [place] [address] Care Team Providers Care Financial Institution President Name Role Phone DERRICK BARNES Primary Care Provider Unavailabl e Insurance Providers: All historical and current Section Date Range: From patient's date of to the date document was created. This section includes the names of all active insurance providers for the patient. Insurance Provider Type of Coverage Plan Name Start of Policy Coverage End of Policy Coverage Group Number Member ID Insurance Provider's Telephone Number Policy Rodriguez's Name Patient's Relationship to Policy Rodriguez MEDICARE (WNR) MEDICARE (M) PART A Apr 29, 2020 PART A [id number] [place] PATIENT MEDICARE (WNR) MEDICARE (M) PART B Apr 29, 2020 PART B [id number] [place] PATIENT U-CARE OF [facility] (WNR) MEDICARE ADVANTAGE [facility] ([facility]) Apr 29, 2021 [id number] [place] PATIENT Selected Encounter This section includes the information on record at [place] for the Encounter. Date/Time Encounter Type Encounter Description Reason Provider Source Jan 08, 2024 10:30 AM COMPRE OPH EXAM EST PT 1/> OPTOMETRY ICD-10-CM I78.1 Nevus, non-neoplasti c HVEZDA,DEISY K IHE Encounter Template Text not used by VA Assessments - Encounter Diagnoses This section includes the primary and secondary diagnoses documented for the Encounter. Date/Time Primary/Secondary Diagnosis Diagnosis Name Provider Source Jan 08, 2024 01:33 PM PRIMARY Nevus, non-neoplastic HVEZDABRIGIDOE K [facility] Jan 08, 2024 01:33 PM SECONDARY Combined forms of age-related cataract, bilateral HVEZDA,DEISY K [facility] Jan 08, 2024 01:33 PM SECONDARY Myopia, bilateral HVEZDA,DEISY K [facility] Jan 08, 2024 01:33 PM SECONDARY Presbyopia HVEZDA,DEISY K [facility] Jan 08, 2024 01:33 PM SECONDARY Unspecified astigmatism, bilateral HVEZDA,DEISY K [facility] Plan of Treatment: Future Appointments (+ 6 months) and Future Tests (+/- 45 days) The Plan of Treatment section includes future care activities for the patient from all [place] treatmentfacilities. This section includes future appointments and future orders which are active, pending or scheduled. Future Appointments This section includes appointments that were scheduled to occur 6 months from the date of the Encounter, up to a maximum of 20 appointments. The data comes from all [place] treatment facilities. Appointment Date/Time Appointment Type Appointme nt Facility Name Jun 08, 2024 04:24 PM AMBULATORY - NONE [facility] Social History: Smoking Status (Most current) and Tobacco Use (All prior to encounter date) This section includes the most current, and the historical, smoking and tobacco- related health factors from the [facility] facility where the Encounter took place. Current Smoking Status This section includes the most current smoking, or tobacco-related health factor, from the [facility] facility where the Encounter took place. Date/Time Current Smoking Status Comment Facil ity Aug 21, 2023 10:30 AM VA-TOBACCO FORMER USER [facility] Tobacco Use History This section includes a history of the smoking, or tobacco-related health factors, that were collected on or before the date of the Encounter. The data comes from the [facility] facility where the Encounter took place. Date/Time Smoking Status/Tobacco Use Comment F acility Aug 21, 2023 10:30 AM VA-TOBACCO QUIT 15 YRS OR MORE [facility] Aug 16, 2022 02:00 PM VA-TOBACCO FORMER USER [facility] Aug 16, 2022 02:00 PM VA-TOBACCO QUIT 15 YRS OR MORE [facility] Aug 14, 2021 10:30 AM VA-TOBACCO FORMER USER [facility] Aug 14, 2021 10:30 AM VA-TOBACCO QUIT 15 YRS OR MORE [facility] Aug 23, 2020 09:00 AM VA-TOBACCO FORMER USER [facility] Aug 23, 2020 09:00 AM VA-TOBACCO QUIT 15 YRS OR MORE [facility] Aug 04, 2018 11:07 AM VA-TOBACCO FORMER USER [facility] Aug 04, 2018 11:07 AM VA-TOBACCO QUIT 15 YRS OR MORE [facility] May 29, 2017 09:28 AM QUIT TOBACCO >7 YEARS AGO [facility] Encounter Notes: All associated encounter notes This section contains the clinical notes associated to the Encounter. Date/Time Encounter Note(s) Provider Source Jan 08, 2024 01:33 PM OPTOMETRY CONSULT: LOCAL TITLE: OPTOMETRY IMAGE STANDARD TITLE: OPTOMETRY CONSULT DATE OF NOTE: JAN 08, 2024@13:33 ENTRY DATE: JAN 08, 2024@13:33:39 AUTHOR: DEISY WILLIS EXP COSIGNER: URGENCY: STATUS: COMPLETED Images obtained and available for viewing in [employer]. /claudia/ DEISY WILLIS OD,FAAO Signed: 01/08/2024 13:33 DEISY WILLIS [facility] Jan 08, 2024 10:06 AM OPTOMETRY NOTE: LOCAL TITLE: OPTOMETRY NOTE STANDARD TITLE: OPTOMETRY NOTE DATE OF NOTE: JAN 08, 2024@10:06 ENTRY DATE: JAN 08, 2024@10:06:33 AUTHOR: DEISY WILLIS EXP COSIGNER: URGENCY: STATUS: COMPLETED [place] [id number] MALE 68 WHITE Apr LEGEND PERRL = pupils equal round react to light ADD = bifocal addition APD = afferent pupillary defect C/D = cup to disk ratio EOM = extra ocular motility FTFC = full to finger count MVA = manifest visual acuity OD = right eye OS = left eye OU = both eyes PH = pin hole VA = visual acuity BCVA = best corrected visual acuity c or w/ = with s or w/o = with out cc or sc = with correction or without correction NVO = near vision only DVO = distance vision only NVD = neovascularization of the disc NVE = neovascularization elsewhere CSME = clinically significant macular edema NIDDM = non-insulin dependent diabetes mellitus IDDM = insulin dependent diabetes mellitus DM = diabetes mellitus HTN = Hypertension OHTN = ocular hypertension IOP = intra-ocular pressure AMD = Age-related macular degeneration SRF = sub-retinal fluid CNVM = choroidal neovascular membranes PED = pigment epithelial detachment PIL = photoreceptor integrity line RPE = retinal pigment epithelium PCIOL = posterior capsule intra-ocular lens ACIOL = anterior capsule intra-ocular lens LPI = laser peripheral iridotomy MGD = meibomian gland dysfunction ERM = epiretinal membrane PVD = posterior vitreal detachment Active Problem List as found on today's cover sheet was reviewed: Active problems - Computerized Problem List is the source for the followin. Obesity ([facility] [id number]) 2. History of colonic polyp 3. Psoriasis 4. Diverticulitis 5. Hyperlipidemia Active Outpatient Medications (As listed in CPRS): Active Outpatient Medications (including Supplies): Active Outpatient Medications Status ======= 1) ROSUVASTATIN CA 20MG TAB TAKE ONE-HALF TABLET BY ACTIVE MOUTH EVERY EVENING *TO LOWER CHOLESTEROL* Active Non-VA Medications Status ======= 1) Non-VA ASPIRIN 81MG EC TAB 81MG BY MOUTH ONCE DAILY ACTIVE 2) Non-VA FAMOTIDINE 20MG TAB 20MG BY MOUTH EVERY DAY ACTIVE ONLY IF NEEDED 3 Total Medications Allergies & Adverse Reactions (As listed in CPRS): Patient has answered NKA REASON FOR VISIT: Mr. Gregory is a pleasant here for his comprehensive eye exam. [place] reports he is interested in trying bifocals, he sees well in his glasses, takes them off to read, no other ocular complaints. lived in [place] for many years. [place] has some hunting land in [place]. They moved to [place] to be closer to their kids & grandkids still living in the city. has 2 kids and 5 grandkids. ALEJANDRO: 11/30/21 PERSONAL EYE HISTORY: (-)eye injury (-)eye surgeries (-)eye infections (+)Choroidal Nevus OD FAMILY HISTORY: (-)glaucoma (-)AMD (-)blindness SOCIAL HISTORY: (-)tobacco, quit 30 years ago, smoked 20 years, cigars ~2 week MEDICAL HISTORY: Mental Status: Alert & Oriented (-)DM- insulin, oral, LBS , date of diagnosis Last Blood Pressure: 138/86 (08/21/2023 10:00) (-)HTN (+)Hyperlipidemia, controlled Eye Medications: none Habitual Spectacle RX: 11/2021 OD: -0.50-1.65z638 OS: -1.00-0.92b440 Add +2.25 Entering DVA cc: OD: 20/20-1 OS: 20/20-2 Pupils: PERRL -APD OU Extraocular muscles: unrestricted OD, unrestricted OS Confrontations: full to finger count OD, full to finger count OS Manifest Refraction: OD: -0.50-1.05u690 20/20 OS: -0.75-1.37x117 20/20 Add +2.50 20/20 Slit Lamp Exam: Lids/Lashes: dermatochalasis OU Conjunctiva: clear OD, clear OS Cornea: clear OD, clear OS Anterior Chamber: deep/quiet OD, deep/quiet OS Iris: no rubeosis OD, no rubeosis OS Lens: NS1, trace CS OU Angles: OPEN 4 by Van Herick OD,OS Goldmann Applanation tonometry in mmHg w/ Proparacaine & Fluorescein OD/OS Time Date Medication 1023 01/08/24 none CONSENT: The patient was educated about the need for pupil dilation as well as the potential side effects including light sensitivity and blurred vision. The patient voiced understanding and gave consent to proceed with the dilation. Internal Exam: dilation OU w/ Tropicamide 1% & Phenylephrine 2.5% (pt ed side effects of gtts) @1023 Optic nerve head: OD: C/D: .45 sloped T rim, oblique insertion OS: C/D: .45 sloped T rim, oblique insertion pink, healthy, distinct OU Post pole: 1.5DD nevus IN OD Vessels: normal for age OD, normal for age OS Macula: clear OD, clear OS Vitreous: clear OD, clear OS Periphery: no holes, breaks, tears, detachments OD, no holes, breaks, tears, detachments OS (-)NVD, NVE, CSME OU Additional Testing: MACULAR OCT 01/02/24 OD: CT:272, normal foveal contour OS: CT:267, normal foveal contour (-)CSME, hemes or retinal fluid (-)retinal fluid, CNVM, PED, geographic atrophy, hemes or PIL breaks OU RNFL OCT 01/08/24 OD: , WNL 360; GCA:13 WNL 360 OS: , WNL 360; GCA:13 WNL 360 PHOTOS: 01/02/24, 1.5DD nevus inferior to disc OS, normal ocular fundus OU Assessment/Plan: 1. Choroidal nevus OD -Photo documented today, ~1.5DD nevus inferior to disc OS, longstanding and stable -Few overlying drusen, no orange pigment, SRF and regular margins -Monitor 2. Mild Cataracts, not visually significant -BCVA 20/20 OU -Nuclear sclerosis & cortical spoking OU -Posterior subcapsular -Educate and monitor, no treatment needed at this time, discussed early cataract effects of reduced vision, glare or halos. 3. Myopia, astigmatism w/ presbyopia OU -Ordered new glasses -Released Spec Rx Educate and monitor, discussed all exam findings. Patient and/or surrogate verbalized understanding of the instructions/information given. Patient educated to return to clinic sooner if changes noted to vision. Medication reconciliation was completed within the realm of my specialty. Any medication discrepancies have been identified, discussed with the patient/caregiver and resolved. Concerns about medications not under my purview were referred to the appropriate prescriber. *This note was created partially using [employer] [id number] software, and although edited in real-time, may occasionally contain grammatical or semantic errors. Return to Clinic: 1 year optometry /es/ DEISY WILLIS OD,FAAO Signed: 01/08/2024 13:33 DEISY WILLIS OC
--- OUTSIDE RECORDS SUMMARY | 2024-08-24 08:30 | XMS_ITS | Encounter Summary ---
Author Name [facility] [facility] [place] Address [address] [place] [address] Care Team Providers Care Voicer Name Role Phone JUDI TRUONG Primary Care Provider Unavailabl e Insurance Providers: [...] PART A Apr 29, 2020 PART A [id number] [place] PATIENT MEDICARE (WNR) MEDICARE (M) PART B Apr 29, 2020 PART B [id number] [place] PATIENT [facility] (WNR) MEDICARE ADVANTAGE [facility] (WNR) Apr 29, 2021 [id number] [place]REG[place] PATIENT Selected Encounter This section includes the information on record at [place] for the Encounter. Date/Time Encounter Type Encounter Description Reason Provider Source Aug 24, 2024 01:30 PM PT EDUCATION NOC INDIVID OCCUPATIONAL THERAPY ICD-10-CM G31.84 Mild cognitive impairment of uncertain or unknown etiology ADALI PAT Encounter Template Text not used by [facility] Assessments - Encounter Diagnoses This section includes the primary and secondary diagnoses documented for the Encounter. Date/Time Primary/Secondary Diagnosis Diagnosis Name Provider Source Aug 24, 2024 02:53 PM PRIMARY Mild cognitive impairment of uncertain or unknown etiology ADALI PAT [facility] Lab Results: +/- 30 days of the encounter This section includes the Chemistry and Hematology Lab Results on record with [place] for the patient. Radiology Reports and Pathology Reports are provided separately, in subsequent sections. Lab Results This section contains the Chemistry/Hematology Results that were resulted 30 days before or 30 daysafter the date of the Encounter. Date/Time Source Result Type Result - Unit Interpretation Reference Range Specimen Type Comment Aug 06, 2024 08:59 AM [facility] AST(SGOT) PLASMA Specimen Type: PLASMA Comment: This is an estimate of GFR using the CKD-Epi equation and not a measurement. Results may be impacted by variability in physiology age, sex, serum creatinine. Units for EGFR (2020 CKD-EPI)=mL/min/ 1.73 square meters. Ordering Provider: JUDI TRUONG Report Released Date/Time: Aug 21, 2023 10:44 AM Reporting Lab: [address] [phone] Performing Lab: [address] [phone] AST(SGOT) 25 U/L 10-Aug 06, 2024 08:59 AM [facility] BASIC METABOLIC PLASMA Specimen Type: PLASMA Comment: This is an estimate of GFR using the CKD-Epi equation and not a measurement. Results may be impacted by variability in physiology age, sex, serum creatinine. Units for EGFR (2020 CKD-EPI)=mL/min/1.73 square meters. Ordering Provider: JUDI TRUONG Report Released Date/Time: Aug 21, 2023 10:44 AM Reporting Lab: [address] [phone] Performing Lab: [address] [phone] CREATININE 1.10 mg/dL 0.73-1.18 BUN 13 mg/dL 7-21 GLUCOSE 123 mg/dL H 70-99 SODIUM 140 mmol/L 136-145 POTASSIUM 4.2 mmol/L 3.5-4.7 CHLORIDE 106 mmol/L 98-109 CO2-VENOUS 29 mmol/L 21-32 CALCIUM (BLOOD) 9.3 mg/dL 8.7-10.4 ANION GAP 5 mmol/L 5-15 BUN/CREAT RATIO 12 10-20 EGFR (CKD-EPI.21) 73 >= 60 Aug 06, 2024 08:59 AM [facility] ALT(SGPT) PLASMA Specimen Type: P LASMA Comment: This is an estimate of GFR using the CKD-Epi equation and not a measurement. Results may be impacted by variability in physiology age, sex, serum creatinine. Units for EGFR (2020 CKD-EPI)=mL/min/1.73 square meters. Ordering Provider: JUDI TRUONG Report Released Date/Time: Aug 21, 2023 10:44 AM Reporting Lab: [address] [phone] Performing Lab: [address] [phone] ALT(SGPT) 38 U/L 10-65 Aug 06, 2024 08:59 AM [facility] LIPID PROFILE PLASMA Specimen Type: P LASMA Comment: This is an estimate of GFR using the CKD-Epi equation and not a measurement. Results may be impacted by variability in physiology age, sex, serum creatinine. Units for EGFR (2020 CKD-EPI)=mL/min/1.73 square meters. Ordering Provider: JUDI TRUONG Report Released Date/Time: Aug 21, 2023 10:44 AM Reporting Lab: [address] [phone] Performing Lab: [address] [phone] CHOLESTEROL 85 mg/dL 0-199 TRIGLYCERIDE 86 mg/dL 0-149 HDL-CHOL 38 mg/dL L >= 40 LDL CHOLESTEROL 30 mg/dL 0-99 LDL CHOL, direct canc Aug 06, 2024 08:59 AM [facility] PROSTATE SPECIFIC ANTIGEN SERUM Speci men Type: SERUM Comment: PSA was performed on the [email or web address] Immunoassay Analyzer. Ordering Provider: JUDI TRUONG Report Released Date/Time: Aug 21, 2023 10:44 AM Reporting Lab: [address] [phone] Performing Lab: [address] [phone] PROSTATE SPECIFIC ANTIGEN 0.52 ng/mL 0.0 0-4.00 Aug 06, 2024 08:59 AM [facility] CBC WITH DIFFERENTIAL BLOOD Specimen Type: BLOOD No comment entered. Ordering Provider: JUDI TRUONG Report Released Date/Time: Aug 21, 2023 10:44 AM Reporting Lab: [address] [phone] Performing Lab: [address] [phone] WBC 6.0 10*3/uL 4.0-11.0 RBC 5.08 10*6/uL 4.20-5.70 HEMOGLOBIN 15.1 g/dL 13.0-17.0 HEMATOCRIT 45.3 40.0-51.0 MCV 89.2 fL 82.0-99.0 MCH 29.7 pg 27.0-34.0 MCHC 33.3 g/dL 31.0-37.0 PLATELET COUNT 165 10*3/uL 130-400 MPV 10.3 fL 8.0-12.0 RDW 13.0 < 15.0 MONOCYTE %-AUTO 11.4 ABSOLUTE LYMPHOCYTE-AUTO 1.5 10*3/uL 1.0 -4.0 LYMPHOCYTE %-AUTO 25.5 EOSINOPHIL %-AUTO 3.1 BASOPHIL %-AUTO 0.8 NEUTROPHIL %-AUTO 58.7 ABSOLUTE EOSINOPHIL-AUTO 0.2 10*3/uL 0.0 -0.4 ABSOLUTE NEUTROPHIL-AUTO 3.5 10*3/uL 1.5 -8.0 ABSOLUTE BASOPHIL-AUTO 0.1 10*3/uL 0.0-0 .2 ABSOLUTE MONOCYTE-AUTO 0.7 10*3/uL 0.2-1 .0 ABSOLUTE IMMATURE GRAN-AUTO <0.1 10*3/uL 0.0-0.5 IMMATURE GRAN %-AUTO 0.5 ABSOLUTE NRBC-AUTO <0.01 10*3/uL 0.000-0 .012 NRBC %-AUTO 0.0 /100{WBCs} 0.0-0.2 Vital Signs: All taken on the encounter date This section contains inpatient and outpatient Vital Signs collected on the date of the Encounter. Date/Time Temperature Pulse Blood Pressure Respiratory Rate SP02 Pain Height Weight Body Mass Index Source Aug 24, 2024 02:45 PM 148/81 [facility] Aug 24, 2024 02:43 PM 8 [facility] Aug 24, 2024 02:37 PM 97.3 65 153/79 16 97 8 219 31 [facility] Radiology Reports: +/- 30 days of the encounter Radiology Reports For cases when an order for radiology services may have been completed prior to the date of the Encounter, the report list includes the Radiology Reports that were completed up to 30 days before dateof the Encounter. For cases when an order for radiology services may have been completed after the date of the Encounter, the report list also includes the Radiology Reports that were completed up to30 days after date of the Encounter. The data comes from all [place] treatment facilities. Date/Time Radiology Report Provider Source Aug 24, 2024 03:01 PM ELBOW LEFT 3 OR MO RE VIEWS: PAPO GREGORY [facility] [id number] M Exm Date: AUG 24, 2024@15:01 Req Phys: ,July Pat Loc: [facility] (Req'g Loc) Img Loc: 400(RAD) Service: [place] [address] (Case [id number] COMPLETE) ELBOW LEFT 3 OR MORE VIEWS (RAD Detailed) CPT:63882 Proc Modifiers : LEFT Reason for Study: Infection, swelling, redness Clinical History: Left elbow infection, redness, swelling. Concern for any type of joint effusion. Report Status: Verified Date Reported: AUG 24, 2024 Date Verified: AUG 24, 2024 Sider Mechanic E-Sig:/ES/VLAD OBRIEN Report: Comparison: None. Discussion: No acute fracture, dislocation or significant appearing arthropathic changes are seen. No evidence of significant elbow joint effusion. Small ossicular density along the lateral distal humeral epicondyle. Impression: Essentially unremarkable study. Primary Diagnostic Code: MINOR ABNORMALITY Primary Interpreting Staff: VLAD OBRIEN, Radiologist (Sider Mechanic) /VLAD JAMIL [facility] Encounter Notes: All associated encounter notes This section contains the clinical notes associated to the Encounter. Date/Time Encounter Note(s) Provider Source Aug 24, 2024 01:28 PM OCCUPATIONAL THERA PY CONSULT: LOCAL TITLE: OT RESPONSE TO CONSULTATION STANDARD TITLE: OCCUPATIONAL THERAPY CONSULT DATE OF NOTE: AUG 24, 2024@13:28 ENTRY DATE: AUG 24, 2024@13:28:22 AUTHOR: ADALI PAT COSIGNER: URGENCY: STATUS: COMPLETED OCCUPATIONAL THERAPY (OT) FUNCTIONAL COGNITIVE EVALUATION Diagnosis: Mild cognitive impairment of uncertain or unknown etiology Referring Provider: Judi Truong Date of Consult: 08/11/2024 Date of Initial Evaluation: 08/24/2024 Evaluating Provider: EMANUEL Matamoros Total time of visit: 40 minutes Time of Treatment 1:1: 10 minutes Procedures: occupational therapy evaluation, education 10 minutes Precautions: None Patient list: Active problems - Computerized Problem List is the source for the followin. Insomnia 2. Obesity ([facility] [id number]) 3. History of colonic polyp 4. Psoriasis 5. Diverticulitis 6. Hyperlipidemia Abbreviations Activities of daily living (ADL) Instrumental Activity of Daily Living (IADL) Loss of consciousness (LOC) [facility] [place] ([place]) Within Functional Limits (WFL) Within Normal Limits (WNL) SUBJECTIVE: Social History: [place] is to [place] and lives in [place], [place]. He has 2 children and 5 grandchildren who all live within 30 miles. 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 is baby of 7 children and reports his oldest brother age 89 has the start of dementia which concerns him. Prior Level of Function: Independent Pain: 0/10 but reports ongoing issue with left elbow from insect bite. Has been seen with calling during session indicating need for another medication due to infection. He plans to go to urgent care today to have it looked at after appointment and follow up with getting medication that was recommended. Education History: high school graduate Mental Health: none Complaints/Problems as Seen by Patient: Unable to tell jokes or recall politics like he used to Per with no concerns. 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 Often going to bed at 10 and waking up at 1230 wide awake. He reports in winter he is not very active but in summer he is outside. He reports feeling like he has trouble breathing when laying on right side. Starting using melatonin recently but reports it does not help. Social Participation and Communication: independent, no concerns Leisure: Hunting, hobby farm, motorcycle, side by side Organizational Strategies: Education/Treatment Provided Today: [place] Cognitive Assessment (MoCA) Administered the [place] Cognitive Assessment (MoCA) 8.1 (anthony lozoya camel), a screening tool for mild cognitive dysfunction. The MoCA assesses several cognitive domains (listed below). A score of 26 or above out of 30 possible points is considered normal. A lower memory index score indicates more encoding and retrieval failures The 's performance on the MoCA was as follows: Visuospatial/Executive 4/5 - trail 1 - shape 0 - clock 3/3 * contour 1 * numbers 1 * hands 1 Naming 3/3 (Immediate) Memory (02/05) (not counted in scoring) Attention - Digits 2/2 - Letters 1/1 - Serial 7 subtract 3/3 Language - Sentence Rep 2/2 - Fluency (N=15) 1/1 Abstraction 2/2 Delayed Recall 2/5 *note called in the middle of immediate memory part of MOCA to discuss update from doctor regarding his elbow-may have affected delayed recall as focused on elbow and what told him. Memory Index Score (MIS) = 9/15 Orientation 5/6 TOTAL SCORE 25/30 -Patient's total score falls within performance range that suggests Mild Cognitive Impairment (18-26) TEST OBSERVATIONS -Test results are judged to be a fair indicator of the patient's present cognitive status *discussed acute infection could affect his score above *Therapeutic Intervention with focus on cognitive function including: -reviewed results of testing, cognitive strengths/challenges and multi-factors which can impact cognition: insomnia-concern for possible sleep apnea -[place] participated in education/training regarding lifestyle habits to reduce risk for further cognitive decline -[place] participated in education/training regarding cognitive compensatory training. Educated on sleep strategies, memory and attention strategies, and 10 ways to love your brain. Also provided handout for whole health offerings of mindfulness, yoga, etc. ASSESSMENT: is 69 year old male who is relatively active and healthy at baseline except for issues with insomnia and current acute infection per call from spouse during session. score on MOCA of 25/30 falls in range of mild cognitive impairment -needed cue for clock but was able to fix error on own. [place] lost 3/5 point for delayed recall but note that did call during testing which may have distracted him and he also has an acute infection. reports he is independent with no concerns for ADLs/IADLs but is concerned about not being able to recall jokes or discuss politics like he used to. Discussed concern for impact of insomnia and recommendation to be tested for sleep apnea due to reports of some difficulty breathing at night. provided with sleep strategies to also try to implement and strategies for memory and attention and ways to love his brain. will no need for skilled OT at this time but is aware that he can request new consult for further testing, strategies or education as needed. PLAN: -frequency: evaluation only -duration: evaluation only -treatment modalities: cognitive skills, therapeutic activity, patient education -education regarding: OT eval and plan of snf Exercise Program: cognitive compensatory strategies and lifestyle habits- handouts provided to aid recall /es/ ADALI PAT Occupational Therapist Signed: 08/24/2024 15:50 ADALI PAT [facility]
--- OUTSIDE RECORDS SUMMARY | 2024-08-24 09:34 | XMS_ITS | Encounter Summary ---
Author Name [facility] [facility] [place] Address [address] [place] [address] Care Team Providers Care Borematic Machine Operator Name Role Phone DERRICK BARNES Primary Care [...] PART A Apr 29, 2020 PART A [id number] PAPO GREGORY PATIENT MEDICARE (WNR) MEDICARE (M) PART B Apr 29, 2020 PART B [id number] PAPO GREGORY PATIENT [facility] (WNR) MEDICARE ADVANTAGE [facility] (WN) Apr 29, 2021 [id number] PAPO GREGORY PATIENT Selected Encounter This section includes the information on record at [place] for the Encounter. Date/Time Encounter Type Encounter Description Reason Provider Source Aug 24, 2024 02:34 PM OFFICE O/P EST HI 40 MIN URGENT CARE ICD-10-CM L03.114 Cellulitis of left upper limb IHE Encounter Template Text not used by [place] Assessments - Encounter Diagnoses This section includes the primary and secondary diagnoses documented for the Encounter. Date/Time Primary/Secondary Diagnosis Diagnosis Name Provider Source Aug 24, 2024 03:25 PM PRIMARY Cellulitis of left upper limb [facility] Aug 24, 2024 03:25 PM SECONDARY Methicillin resis staph infection, unsp site [facility] Lab Results: +/- 30 days of the encounter This section includes the Chemistry and Hematology Lab Results on record with [place] for the patient. Radiology Reports and Pathology [...] (2020 CKD-EPI)=mL/min/ 1.73 square meters. Ordering Provider: DERRICK BARNES Report Released Date/Time: Aug 21, 2023 10:44 AM Reporting Lab: [address] [address] Performing Lab: [address] [address] AST(SGOT) 25 U/L 10-37 Aug 06, 2024 08:59 AM [facility] BASIC METABOLIC PLASMA Specimen Type: PLASMA Comment: This is an estimate of GFR using the CKD-Epi equation and not a measurement. Results may be impacted by variability in physiology age, sex, serum creatinine. Units for EGFR (2020 CKD-EPI)=mL/min/1.73 square meters. Ordering Provider: DERRICK BARNES Report Released Date/Time: Aug 21, 2023 10:44 AM Reporting Lab: [address] [address] Performing Lab: [address] [address] CREATININE 1.10 mg/dL 0.73-1.18 BUN 13 mg/dL 7-21 GLUCOSE 123 mg/dL H 70-99 SODIUM 140 mmol/L 136-145 POTASSIUM 4.2 mmol/L 3.5-4.7 CHLORIDE 106 mmol/L 98-109 CO2-VENOUS 29 mmol/L 21-32 CALCIUM (BLOOD) 9.3 mg/dL 8.7-10.4 ANION GAP 5 mmol/L 5-15 BUN/CREAT RATIO 12 10-20 EGFR (CKD-EPI.21) 73 >= 60 Aug 06, 2024 08:59 AM [facility] ALT(SGPT) PLASMA Specimen Type: P LASRENETTA Comment: This is an estimate of GFR using the CKD-Epi equation and not a measurement. Results may be impacted by variability in physiology age, sex, serum creatinine. Units for EGFR (2020 CKD-EPI)=mL/min/1.73 square meters. Ordering Provider: DERRICK BARNES Report Released Date/Time: Aug 21, 2023 10:44 AM Reporting Lab: [address] [address] Performing Lab: [address] [address] ALT(SGPT) 38 U/L 10-65 Aug 06, 2024 08:59 AM [facility] LIPID PROFILE PLASMA Specimen Type: P LASRENETTA Comment: This is an estimate of GFR using the CKD-Epi equation and not a measurement. Results may be impacted by variability in physiology age, sex, serum creatinine. Units for EGFR (2020 CKD-EPI)=mL/min/1.73 square meters. Ordering Provider: DERRICK BARNES Report Released Date/Time: Aug 21, 2023 10:44 AM Reporting Lab: [address] [address] Performing Lab: [address] [phone] CHOLESTEROL 85 mg/dL 0-199 TRIGLYCERIDE 86 mg/dL 0-149 HDL-CHOL 38 mg/dL L >= 40 LDL CHOLESTEROL 30 mg/dL 0-99 LDL CHOL, direct canc Aug 06, 2024 08:59 AM [facility] PROSTATE SPECIFIC ANTIGEN SERUM Speci men Type: SERUM Comment: PSA was performed on the Siemens DrAvailable Immunoassay Analyzer. Ordering Provider: DERRICK BARNES Report Released Date/Time: Aug 21, 2023 10:44 AM Reporting Lab: [place] [address] [facility] [address] Performing Lab: [address] [address] PROSTATE SPECIFIC ANTIGEN 0.52 ng/mL 0.0 0-4.00 Aug 06, 2024 08:59 AM [facility] CBC WITH DIFFERENTIAL BLOOD Specimen Type: BLOOD No comment entered. Ordering Provider: DERRICK BARNES Report Released Date/Time: Aug 21, 2023 10:44 AM Reporting Lab: [address] [address] Performing Lab: [address] [address] WBC 6.0 10*3/uL 4.0-11.0 RBC 5.08 10*6/uL [...] Source Aug 24, 2024 02:45 PM 148/81 [facility] Aug 24, 2024 02:43 PM 8 [facility] Aug 24, 2024 02:37 PM 97.3 65 153/79 16 97 8 [phone] 31 [facility] Radiology Reports: +/- 30 days of the [...] the Encounter. The data comes from all [place] treatment facilities. Date/Time Radiology Report Provider Source Aug 24, 2024 03:01 PM ELBOW LEFT 3 OR MO RE VIEWS: PAPO GREGORY [facility] [phone] [phone] Exm Date: AUG 24, 2024@15:01 Req Phys: LASSA,JULY A Pat Loc: [facility] (Req'g Loc) Img Loc: 400(RAD) Service: [place] [address] (Case [id number] COMPLETE) ELBOW LEFT 3 OR MORE VIEWS (RAD Detailed) CPT:68082 Proc Modifiers : LEFT Reason for Study: Infection, swelling, redness Clinical History: Left elbow infection, redness, swelling. Concern for any type of joint effusion. Report Status: Verified Date Reported: AUG 24, 2024 Date Verified: AUG 24, 2024 Industrial Service Technician E-Sig:/ES/VLAD OBRIEN Report: Comparison: None. Discussion: No acute fracture, dislocation or significant appearing arthropathic changes are seen. No evidence of significant elbow joint effusion. Small ossicular density along the lateral distal humeral epicondyle. Impression: Essentially unremarkable study. Primary Diagnostic Code: MINOR ABNORMALITY Primary Interpreting Staff: VLAD OBRIEN, Radiologist (Industrial Service Technician) /VLAD JAMIL [facility] Encounter Notes: All associated encounter notes This section contains the clinical notes associated to the Encounter. Date/Time Encounter Note(s) Provider Source Aug 24, 2024 03:20 PM EDUCATION NOTE: LOCAL TITLE: PATIENT INSTRUCTIONS STANDARD TITLE: EDUCATION NOTE DATE OF NOTE: AUG 24, 2024@15:20:18 ENTRY DATE: AUG 24, 2024@15:20:18 AUTHOR: ROCK SYED COSIGNER: URGENCY: STATUS: COMPLETED Discharge Instructions IMPORTANT: We examined and treated you today for an urgent need only. This was not a substitute for, or an effort to provide, complete medical care. In most cases, you must let your doctor check you again. Tell your doctor about any new or lasting problems. We cannot recognize and treat all injuries or illnesses in one Urgent Care visit. If we find new information about your special tests, such as EKG's or X-rays, we will call you. After you leave, you should follow the instructions below. You were treated today by Estefany Oneil NP. Special Information DISCHARGE TO: HOME DISCHARGE DIAGNOSIS: Cellulitis left elbow NEW MEDICATIONS or CHANGES IN MEDICATION ORDERS: YES NEW MEDICATIONS: NEW MEDICATION: -Bactrim 2 times a day for 10 days to treat infection. Take with food. May cause GI upset. STOP use of cephalexin. Instruction: -Perform wound care 2 times per day. Cleanse area with soap and water. Avoid scrubbing or excess pressure to the area. Once wound care is complete and area is clean and dry apply Band-Aid over the area. Wash hands thoroughly with soap and water in order to avoid spreading to other areas of the body or to other people. -Perform good hand hygiene this will decrease the spread of germs. -Keep wound covered at least for the next 5 days while you are on antibiotics. -Monitor area for worsening signs and symptoms of infection to include worsening swelling, pain, redness or drainage. -Continue all other medications as prescribed. -Tylenol as needed for pain and fever. Do not exceed 3 g in 24 hours. -If symptoms worsen you are welcome to return to urgent care or follow-up with your primary care provider. -If you have questions or concerns regarding today's visit follow-up your primary care provider. FOLLOW UP: Care Coordination PRIMARY CARE PROVIDER: DERRICK BARNES This Information Is About Your Follow Up Care Your primary care nurse will call you on or before Saturday. (This is your PACT Nurse) They will arrange a follow-up appontment with you at that time if needed. This nurse is on the care team with your Primary Care Provider. DERRICK BARNES To Make or Cancel an appointment, or to relay a message to your Primary or Speciality Provider call: [facility]: Option 2 This Information Is About Your Illness and Diagnosis CELLULITIS Cellulitis is an infection of the skin and the tissues just under the skin. Cellulitis is not contagious. This means it isn't spread from one person to another. If cellulitis isn't treated, it can become a very serious infection that spreads through the whole body. What causes cellulitis? Cellulitis is caused by bacteria (germs). Usually the skin is a good barrier to keep germs from getting into our bodies, but if there is a break in the skin, even a tiny one, bacteria can get in and cause an infection. Sometimes there is no known break in the skin when cellulitis develops, but some of the common injuries to the skin leading to cellulitis include: -animal or human bites -bug bites -trauma (cuts, scrapes, puncture wounds) -intravenous catheters (IVs) -pins used to fix broken bones Who is at higher risk to get cellulitis? People who: -are very young (infants) or very old -have diabetes -have poor circulation -have leg ulcers -are taking medications that suppress the immune system -are taking steroid medications -have decreased lymph drainage after certain kinds of surgery -have recently had surgery or dental work What are the signs and symptoms of cellulitis? -redness and swelling of the skin -pain at the area that is infected -warmth of the area that is infected -fever and chills -feeling generally sick -swollen glands -a red streak going from the area of cellulitis toward the heart How does the health care provider know I have cellulitis? -by examining you and talking with you -by doing blood tests to check white blood cell count and to check for infection in the blood How will my cellulitis be treated? -If the cellulitis is mild, you may be treated at home. -If the cellulitis is severe, you may need to be in the hospital. -You will be given antibiotics, either by mouth or in an IV. -You may receive medications for pain. -The area that is infected will be raised on pillows, if possible. -You will need to rest in bed. Please follow these instructions: -Keep taking your antibiotics until they are gone, even if you feel better. -Keep all follow-up appointments. -Rest until your cellulitis is healed. -Keep the area raised on pillows as much as possible. -Cleanse the area gently with soap and water once a day unless your health care provider has given you other instructions. -Be aware that the infected area will be more prone to get infected again in the future. See your health care provider right away if you notice any sign of cellulitis coming back after your cellulitis is gone. Contact your health care provider as soon as possible if you have any of the following: -increased pain. -spreading of the redness or swelling. -the area begins to blister. -there is no improvement after taking antibiotics for 2 or more days. -fever or chills. -red streaks (or longer red streaks) from the cellulitis going toward your heart. -any questions or concerns. This is Information About Your New Medications - Start taking as prescribed. TRIMETHOPRIM & SULFA (Bactrim, Bactrim DS, Septra, Cotrim, Sulfatrim, or generic) Take this medicine until gone in the following dose: 1 DS tablet (800 mg/160 mg) by mouth 2 times a day until gone. WARNING: Do not take this medicine if you are . It can harm an unborn baby. Use effective control and contact your health care provider if you become during treatment with this medicine. This is a combination of medicines used to treat certain infections caused by bacteria. It is important to take this medicine for the exact length prescribed, even if you feel better. If you stop taking the medicine too soon or skip doses, the infection may not completely go away. This medicine may be used for other reasons, as prescribed by your health care provider. Side effects may include: -diarrhea -dizziness, drowsiness -upset stomach, nausea or vomiting, loss of appetite -skin rash -headache -mouth sores Other side effects may occur, but are not as common. An upset stomach is not a sign of allergy. Allergy would show up as: facial or throat swelling, wheezing or shortness of breath. Please follow these instructions: -Space your medicine doses evenly throughout the day. This medicine works best if there is a constant amount in your blood. -Take this medicine with or without food, with a full 8-ounce glass of water. Increase the amount of water you drink. This will help prevent kidney stones during treatment with this medicine. -Take this medicine until gone, even if you are feeling better. -Protect your skin from the sun. Wear sunscreen and protective clothes when you are outside. This medicine can cause you to sunburn more easily. -For diabetics taking diabetes medicine by mouth, this medicine can affect your blood sugar or increase the side effects of your diabetes medicine. -Do not drink alcohol, drive, or operate machinery until you know how this medicine affects you. -If you are a female taking a control pill (oral contraceptive), know that antibiotic medicines may cause the control pill to be less effective at preventing a . -Store both tablet and liquid forms of this medicine at room temperature, away from heat, moisture, or direct light. Shake the liquid form well before each use. -If you miss a dose, take it as soon as possible. If it is almost time for your next dose, skip the missed dose. Do not double the doses. -Talk with your health care provider before taking any other medicines (including vitamins and herbal supplements) as you may require additional monitoring. Contact your health care provider immediately or call 911 if you have any sign of allergy. Contact your health care provider as soon as possible if you have: -any sign of a new infection (fever, general aches, unusual weakness or tiredness). -mood changes or confusion. -a yellow color to your eyes or skin; or dark colored urine. -easy bruising or bleeding. -white patches in your mouth. -women: itching in, or change in discharge from, your vagina. -inflammation (pain and swelling) in your intestine during treatment or up to weeks after you've finished this medicine: -ongoing diarrhea -stomach pain or cramping -blood or mucus in your bowel movements -any new or severe symptoms. General Health Information REDUCE YOUR RISK OF FALLING Each year, millions of people are injured by falls. People at risk of falling include hospital patients, senior care residents and those who are recovering from an illness or injury at home. The following information will give you tips and actions you can take to reduce your risk of falling, whether at home or in a medical facility. Why do falls happen? Most falls occur: -if a person is weak, tired or sick -if a person is not physically fit -if a person has trouble seeing clearly -if a person is taking medicines that cause weakness, sleepiness, confusion or dizziness -if a person walks on slippery or wet floors or stairs -if objects or other obstructions are in a person's pathway -if it is dark How can I reduce my risk of falling? -Take care of your health. -Exercise regularly. Exercise builds strength. -Prevent dehydration. Dehydration is when your body is too low on fluids. It can make you dizzy and make it easier to lose your balance. Make sure to drink plenty of water each day. -Have your eyes checked. Make sure you do not have any eye problems or need a new prescription. -Talk to your health care provider if your medicine makes you dizzy, sleepy, light-headed, sluggish or confused. Ask how to reduce these side effects or if you can take a different medicine. Take extra precautions: -Turn on the lights when you enter a room. Do not walk in the dark. -Make sure your pathways are clear. -Use the handrails on staircases. -Sit in chairs that do not move. Use chairs that have arm rests to help when you sit down and stand up. -Wear shoes that have firm, flat, non-slip soles. Do not wear shoes that do not have backs on them. -Replace the rubber tips on canes and walkers when they become worn. Make small changes to your home: -Install timers, clap-on or motion sensors on your lights. -Use night lights in your bedroom, bathroom and the hallway leading to the bathroom. -Keep the floor and stairs clear of objects such as books, tools, papers, shoes and clothing. -Remove small area rugs and throw rugs that can slip. Rubber mats are a good replacement. -Put frequently used items in mqsv-dk-rkjlo places that do not require using a step stool. -Make sure your bed is easy to get in and out of. -Apply non-slip treads on stairs. -Apply non-slip decals or use a non-slip mat in the bathtub or shower. -Install grab bars near the toilet and the bathtub or shower. A home care agency, personal care and support agency, or community program may be able to help make changes to your home if you live alone and need help. Take extra precautions in your health care facility, such as a hospital or senior care: Many falls occur when patients or residents try to get out of bed either to go to the bathroom or walk around the room by themselves. If you need to get out of bed: -Use your call button to ask for help getting out of bed if you feel unsteady. -Use your call button to ask for help going to the bathroom, or walking around the room or in hallways. -Wear non-slip socks or footwear. -Lower the height of the bed and the side rails when you get into and out of bed. Your nurse or other health care provider may raise your bed's side rails when you are in bed to help keep you from falling out of bed. -Talk to your health care provider if your medicine makes you dizzy, sleepy, light-headed, sluggish or confused. Ask how to reduce these side effects or if you can take another medicine. YOU ARE THE MOST IMPORTANT FACTOR IN YOUR RECOVERY. Follow the above instructions fully. Take your medicines as prescribed. Most important, see a doctor again as discussed. If you have new or worsening symptoms/problems, call Telephone Care Service at . If you have a life threatening problem call 911 or your local ambulance service. Telephone Care Service is available 24 hours a day/7 days a week. If you are having thoughts of harming yourself or others please call the National Crisis Hotline at (TALK). Or you could call the National Domestic Violence hotline at (SAFE) or [place] Domestic Violence at . I have received this information and my questions have been answered. I have discussed any challenges I see with this plan with the nurse or physician. /claudia/ ROCK SYED REGISTERED NURSE Signed: 08/24/2024 15:20 ROCK SYED [facility] Aug 24, 2024 03:07 PM PRIMARY CARE URGEN T CARE NOTE: LOCAL TITLE: URGENT CARE/ADMISSION NOTE-NURSING STANDARD TITLE: PRIMARY CARE URGENT CARE NOTE DATE OF NOTE: AUG 24, 2024@15:07 ENTRY DATE: AUG 24, 2024@15:07:24 AUTHOR: ROCK SYED EXP COSIGNER: URGENCY: STATUS: COMPLETED URGENT CARE/ADMISSION NOTE-NURSING Has ADDENDA PAIN: ==== Comprehensive Assessment: Location of pain: L elbow Physical findings at pain site: Edema, Irritation, Redness Onset and Cause of pain: from infection Pain intensity: [place] rates the pain on 0-10 scale: 8 Characteristics of the pain: Aching, Sore Duration of pain: The pain comes and goes. Alleviating Factors: No Relief Factors Identified Aggravating Factors: unsure positioning Provider notified of 's pain status. ABUSE SCREEN: Within the past 12 months, have there been any occasions where you have felt unsafe? No Within the past 12 months, have you experienced any emotion, physical, verbal or financial abuse in any relationship? No HOMELESS STATUS: [place] is not homeless. Type of Assessment: Primary Urgent Care Assessment: NEUROLOGICAL: Neurological Orientation: Oriented x4 Level of Consciousness (AVPU): Alert = Appears aware of and responsive to the environment on their own. Follows commands, open eyes spontaneously, and tract objects. NEUROMUSCULAR/NEUROVASCULAR EXTREMITIES ASSESSMENT Strength: Detail Technician Bilateral: Strong Upper Extremity Bilateral: Full strength Lower Extremity Bilateral: Full strength Sensation: Upper Extremity Sensation Bilateral: Intact Lower Extremity Sensation Bilateral: Intact Temperature: Upper Extremity Temperature Bilateral: Warm Lower Extremity Temperature Bilateral: Warm RESPIRATORY Respirations: Unlabored Pattern: Regular SKIN INSPECTION: Skin Color: Usual for ethnicity Skin Temperature: Warm Skin Moisture: Normal Skin Turgor: Non-Elastic 1440 provider Clarice and rn with in room 2 1450 in radiology /claudia/ ROCK SYED REGISTERED NURSE Signed: 08/24/2024 15:11 08/24/2024 ADDENDUM STATUS: COMPLETED 1515 Discharge from urgent care to home. Ambulatory, stable. No questions regarding discharge instructions.Patient wristband was removed and placed in confidential shred bin. . /claudia/ ROCK SYED REGISTERED NURSE Signed: 08/24/2024 15:16 ROCK SYED [facility] Aug 24, 2024 03:[address] [facility] NOTE: LOCAL TITLE: URGENT CARE-ADMIT/TRANSFER NOTE-PROVIDER STANDARD TITLE: PRIMARY CARE URGENT CARE NOTE DATE OF NOTE: AUG 24, 2024@15:03 ENTRY DATE: AUG 24, 2024@15:03:18 AUTHOR: ESTEFANY ONEIL EXP COSIGNER: URGENCY: STATUS: COMPLETED CHIEF CONCERN/REASON FOR VISIT: Left elbow infection HISTORY OF PRESENT ILLNESS: Mr. Gregory is a 69-year-old gentleman who presents unaccompanied to urgent care today. Patient presents with an infection to his left elbow. Patient reports the area started, pimple-like. He tried to drain the area by squeezing his skin which caused worsening signs and symptoms of infection. He was evaluated on 08/21/2024 and prescribed cephalexin from a local urgent care. He was contacted by that provider with an active MRSA infection [facility]. Patient is experiencing improvement to the redness and ability to flex and extend at the elbow. He has been performing his wound care when he showers every other day. He has been keeping the wound covered with a Band-Aid. He reports ongoing yellow mucus-like drainage from the left elbow. He denies trauma or injury to the left elbow. He denies fever, chills, night sweats. He denies joint stiffness. Reviewed allergies with patient. He takes medications as prescribed. He denies use of tobacco, recreational drugs, alcohol. Patient lives at home independently. Personal Protective Equipment (PPE): Gloves LIFE-SUSTAINING TREATMENT GOALS No data available for: Ethics-Patient Razy-Zozch-Jfbupdotr Ethics-Patient Goal-Be Cured Ethics-Patient Goal-Prolong Life Ethics-Patient Apjz-Jwykvapg-Jbzqk-Qual Ethics-Patient Goal-Be Comfortable Ethics-Patient Goal-Family Support Ethics-Patient Goal-Achieve Life Goals LIFE-SUSTAINING TREATMENT PLANS No data available for: Ethics-Full Scope Of Treatment Ethics-Limit Life-Sustaining Treatment Ethics-No Artificial Nutrition Ethics-No Artificial Hydration Ethics-No Invasive Mech Ventilation Ethics-No Non-Invasive Mech Ventilation Ethics-Limit Mechanical Ventilation Ethics-Limit Transfers-Icu Ethics-Limit Transfers-Hospital Ethics-Limit Transfers-General Ethics-No Life-Sustaining Treatment Vbusrl-Wpa-Glmp Code Ethics-Dnar/Dnr Ethics-Dnar/Dnr-Except Code Status Full Code REVIEW OF SYSTEMS: Otherwise review of systems is unremarkable. GENERAL/CONSTITUTIONAL: Negative for fever, chills, night sweats, weight gain or loss, weakness. SKIN/INTEGUMENTARY: Negative for rash, sores, new lesion or change in lesion, hive, itching. Positive for:ulcer left elbow ulcer, redness MUSCULOSKELETAL: Negative for muscle weakness, joint stiffness, myalgia, arthralgia, effusions, injuries/falls, redness, swelling, arthritis, gout. Positive for: Left elbow pain, swelling PROBLEM LIST: Problem list was reviewed. Active problems - Computerized Problem List is the source for the followin. Insomnia 2. Obesity ([facility] [id number]) 3. History of colonic polyp 4. Psoriasis 5. Diverticulitis 6. Hyperlipidemia PHYSICAL EXAM: Temperature 97.3 F [36.3 C] (08/24/2024 14:37) Heart Rate/Pulse 65 (08/24/2024 14:37) Respirations 16 (08/24/2024 14:37) Blood Pressure 148/81 (08/24/2024 14:45) Pain 8 (08/24/2024 14:43) Weight 219 lb [99.34 kg] (08/24/2024 14:37) BMI 30.8 Last 02 Saturation: 08/24/24 @ 1437 PULSE OXIMETRY: 97 PHYSICAL EXAMINATION: Vital signs noted. General: Patient sitting comfortably in exam room without acute distress he is well-groomed, dressed appropriately for weather outdoors. Patient appears in good health. He is alert, oriented, cooperative and pleasant. No signs of systemic infection or toxicity. HEENT: Normocephalic, atraumatic. PERRL EOM normal ramiro sclera/conjunctiva clear. Nose patent without discharge. Mucous membrane moist and pink. Neck: Supple, full range of motion. Skin: 3 cm circular erythematous raised ulcer with active serosanguineous drainage. Erythema surrounding ulcer along with swelling of the skin. Heart: Adequate circulation without edema. Lungs: Respirations relaxed and even. No increased work of breathing. Able to speak in full sentences without distress. Abdomen: Symmetric, nondistended. Extremities: Left elbow measures larger than right elbow on inspection. Erythema, swelling, warmth, tenderness present on examination. Serosanguineous drainage from the center of ulcer which is located to the medial elbow region. He is able to fully extend and flex to the best of his ability. He appears to have full range of motion to the area. Radial pulse +2. Capillary refill less than 3 seconds. He has equal hogshead hand strength. Neurologic: Alert and oriented. Neurologically grossly intact. Upper and lower extremity strength bilaterally intact. Moving all extremities. Normal speech. Normal facial movement. Balance and coordination are intact. Psych: Appropriate, pleasant. Cooperative. Speech normal in terms of rate, rhythm, tone, volume, and articulation. Normal mood, congruent affect. Left elbow x-ray: Report: Comparison: None. Discussion: No acute fracture, dislocation or significant appearing arthropathic changes are seen. No evidence of significant elbow joint effusion. Small ossicular density along the lateral distal humeral epicondyle. Impression: Essentially unremarkable study. *DIAGNOSIS: 1. Cellulitis of left upper limb, 2. Methicillin-resistant Staphylococcus aureus infection, unspecified site Condition:SATISFACTORY MEDICAL DECISION MAKING/PLAN: -Left elbow x-ray conducted while in urgent care. Reviewed results with patient. Essentially elbow x-ray is unremarkable. There is a small vesicular density along the lateral distal humeral epicondyle. -MRSA is added to problem list. -No clinical indication to treat patient's 8/10 pain. He is instructed to use Tylenol as needed for his pain symptoms. He is also encouraged to use cold therapy intermittently with elevation and rest. -Patient is provided information regarding appropriate antibiotic which is used for MRSA coverage. He is instructed to stop the use of cephalexin and he will be prescribed Bactrim to take 2 times a day for 10 days to treat his infection. -Reviewed when to receive emergency care such as worsening swelling, pain, drainage, fevers, chills. -Shared decision making was conducted with this patient while in urgent care to develop treatment and discharge plan. Patient was receptive to all information and verbalized understanding. NEW MEDICATION: -Bactrim 2 times a day for 10 days to treat infection. Take with food. May cause GI upset. STOP use of cephalexin. Instruction: -Perform wound care 2 times per day. Cleanse area with soap and water. Avoid scrubbing or excess pressure to the area. Once wound care is complete and area is clean and dry apply Band-Aid over the area. Wash hands thoroughly with soap and water in order to avoid spreading to other areas of the body or to other people. -Perform good hand hygiene this will decrease the spread of germs. -Keep wound covered at least for the next 5 days while you are on antibiotics. -Monitor area for worsening signs and symptoms of infection to include worsening swelling, pain, redness or drainage. -Continue all other medications as prescribed. -Tylenol as needed for pain and fever. Do not exceed 3 g in 24 hours. -If symptoms worsen you are welcome to return to urgent care or follow-up with your primary care provider. -If you have questions or concerns regarding today's visit follow-up your primary care provider. -Answered all patient's questions to the best of my ability. Patient was receptive to all information. He verbalized understanding. Patient was agreeable to this treatment and discharge plan. -Patient instructed to return to urgent care or follow up with PCP as needed for worsening symptoms or ongoing concerns. Patient voiced understanding of treatment plan. Patient denies any further questions or concerns at this time. DISPOSITION: Discharge to home FOLLOW UP: Follow up with RN Care Coordination (patient was asked to see federal appellate clerk to schedule visit follow-up) PATIENT INSTRUCTIONS: Advised to call [phone], Ext. [phone], if getting worse or not improving, Advised to return if getting worse or not improving The patient/guardian was educated on the diagnosis and was involved with and agreed with our plan of care. MEDICATION RECONCILIATION: Essential Medication List for Review Medication Review: Medication list was used to complete medication review. The patient reports taking medications as documented in the medication list indicated and the medication list was reviewed with the patient/caregiver. The patient does not report taking any Non-VA/OTC/Herbal medications/supplements not supplied by the VA. The patient reports all medications work well and as they should. The patient does not report difficulties or adverse reaction/allergy with medications. The patient does not have questions regarding medications listed. Education reinforcement was not provided. Medication Reconciliation (used by prescribing clinicians): Medication Reconciliation (Detailed Review): Based on the medication review/history taken previously: The following medication(s) were discontinued: The following NEW medication(s) were ordered: Comment: See Progress Note Patient age 65 or older? Yes Newly prescribed antidepressant or on any of the following potentially inappropriate medications (PIM) for older adults: Not Applicable The following medication(s) were changed: Was medication education provided for new medications or changes to medications? (including medication name, dose, route, reason for use, and potential side effects). Yes. Verbal education was provided to patient/caregiver and patient/caregiver verbalized understanding. Yes. Education on what medications? New medication(s) Education provided to the following: Patient Type of education provided: Verbal Written materials Assessment of patient understanding of education content. Verbalized understanding The risks and benefits of this medication regimen were discussed with the patient, and the patient agrees with the current treatment plan. The patient was provided with the After Visit Summary or another approved/reconciled medication list at the end of the visit. Essential Medication List for Review with (EMLR) was used to complete this medication review. A written medication list was provided and reviewed with the patient/caregiver. ESSENTIAL MED LIST NO GLOASSARY Allergies/ADRs (Tool #5) FACILITY ALLERGY/ADR -------- No Remote Allergy/ADR Data available for this patient [facility] No Known Allergies Med. Reconciliation (Tool #1) INCLUDED IN THIS LIST: Alphabetical list of active outpatient prescriptions dispensed from this [place] (local) and dispensed from another [place] or [facility] facility (remote) as well as inpatient orders (local pending and active), local clinic medications, locally documented non-VA medications, and local prescriptions that have or been discontinued in the past 90 days. Non-VA Meds Last Documented On: Aug 21, 2023 NOTE The display of VA prescriptions dispensed from another [place] or [facility] facility (remote) is limited to active outpatient prescription entries matched to National Drug File at the originating site and may not include some items such as investigational drugs, compounds, etc. NOT INCLUDED IN THIS LIST: Medications self-entered by the patient into personal health records (i.e. [employer]Magic) are NOT included in this list. Non-VA medications documented outside this [place], remote inpatient orders (regardless of status) and remote clinic medications are NOT included in this list. The patient and provider must always discuss medications the patient is taking, regardless of where the medication was dispensed or obtained. -------- Non-VA ASPIRIN 81MG EC TAB TAKE ONE TABLET BY MOUTH ONCE DAILY OUTPT COAL TAR 0.5% SHAMPOO (Status = Active) USE SMALL AMOUNT SHAMPOO TWICE WEEKLY NEEDED FOR DANDRUFF Rx# [id number] Last Released: 08/19/24 Qty/Days Supply: Rx Expiration Date: 08/12/25 Refills Remainin Indication: FOR DANDRUFF Non-VA FAMOTIDINE 20MG TAB TAKE ONE TABLET BY MOUTH DAILY ONLY IF NEEDED Patient wants to buy from Non-VA pharmacy. Medication prescribed by Non-VA provider. Indication: FOR HEARTBURN OUTPT ROSUVASTATIN CA 20MG TAB (Status = Discontinued) TAKE ONE-HALF TABLET BY MOUTH EVERY EVENING *TO LOWER CHOLESTEROL* Rx# [id number] Last Released: 07/08/24 Qty/Days Supply: 45/ Rx Expiration Date: 08/21/24 Refills Remainin OUTPT ROSUVASTATIN CA 20MG TAB (Status = Active/Suspended) TAKE ONE-HALF TABLET BY MOUTH EVERY EVENING *TO LOWER CHOLESTEROL* Rx# [id number] Last Released: Qt/Days Supply: 45 Rx Expiration Date: 08/12/25 Refills Remainin -------- SUPPLIES -------- PHARMACY TERMS AND POSSIBLE PATIENT ACTIONS INPT = [place] inpatient order IV = [place] intravenous medication OUTPT = [place] outpatient prescription PHARMACY POSSIBLE PATIENT TERMS EXPLANATION ACTIONS -------- ACTIVE A prescription that can be If you have refills, filled at the local [place] pharmacy. you may request a refill of this prescription from your [place] pharmacy. CLINIC A medication you received during If you have questions a visit to a [place] clinic or about this medication emergency department. contact your [place] healthcare team. DISCONTINUED A prescription your provider has Contact your [facility] stopped. It is no longer healthcare team if you available to be sent to you or need more of this picked up at the [place] pharmacy medication. window. A prescription which is too old Contact your VA to fill. This does not refer to healthcare team if you the expiration date of the need more of this medication in the container. medication. NON-VA A medication that came from If this medication someplace other than a VA information is pharmacy. This may be a incorrect or out of prescription from either the VA date, please tell your or non VA providers that was VA healthcare team. filled outside the VA. Or, it may be an [id number] (OTC), herbal, dietary supplements or sample medication. ON HOLD An active prescription that will Contact your VA not be filled until pharmacy pharmacy when you need resolves the issue. more of this medication. PARKED An active prescription that will Contact your VA not be filled until the patient pharmacy when you need requests it. this medication. PENDING This prescription order has been If you have been sent to the pharmacy for review instructed to start and is not ready yet. this medication now, contact your VA pharmacy. SUSPENDED An active prescription that is Contact your VA not scheduled to be filled yet. pharmacy if you need You should receive it before this medication now. you run out. == -------- END OF MEDICATION LIST -------- /july WILLIAM FLYNN DNP Signed: 08/24/2024 15:34 CLARICEESTEFANY Pipe VARELA [facility] Aug 24, 2024 02:40 PM TRIAGE NOTE: LOCAL TITLE: TRIAGE NOTE URGENT CARE-PARENT STANDARD TITLE: TRIAGE NOTE DATE OF NOTE: AUG 24, 2024@14:40 ENTRY DATE: AUG 24, 2024@14:40:15 AUTHOR: LOU ALVARADO RN EXP COSIGNER: URGENCY: STATUS: COMPLETED Emergency Department/Urgent Care Center Triage Patient age:69 Sex in chart: MALE Mode of Arrival: Private vehicle Mode of Mobility: * Walk Chief Complaint: 69 y/o with cv/o a nonhealing infection to the left elbow. 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 Came to today for a re-evaluation and possibly change to the antibiotic. Continues to c/o pus-like drainage at the site. Level of Consciousness (AVPU): Alert = Appears aware of and responsive to the environment on their own. Follows commands, opens eyes spontaneously, and tracks objects. Vital Signs: Vital signs previously recorded this visit: Date Vital Measurement Qualifiers 08/24/2024 14:37 Temp F (C) 97.3 (36.3) Pulse 65 Respir 16 BP 153/79 148/81 Wt lbs (kg)[BMI] 219 (99.34)[31*] Actual, Standing Weight Pain 8 POx (L/Min)(%) 97 Room Air Pain: DVPRS Scale Location: Left elbow Defense and Veterans Pain Rating Scale (DVPRS): 8 Awful, hard to do anything Pain Score: 8 Patient's acceptable pain goal: 8 Awful, hard to do anything Suicide Screen: [place] Suicide Severity Rating Scale (C-SSRS) screener 1. Over the past month, have you wished you were or wished you could go to sleep and not wake up? No 2. Over the past month, have you had any actual thoughts of killing yourself? No 3. Over the past month, have you been thinking about how you might do this? Response not required due to responses to other questions. 4. Over the past month, have you had these thoughts and had some intention of acting on them? Response not required due to responses to other questions. 5. Over the past month, have you started to work out or worked out the details of how to kill yourself? Response not required due to responses to other questions. 6. If yes, at any time in the past month did you intend to carry out this plan? Response not required due to responses to other questions. 7. In your lifetime, have you ever done anything, started to do anything, or prepared to do anything to end your life (for example, collected pills, obtained a gun, gave away valuables, went to the roof but didn't jump)? No 8. If YES, was this within the past 3 months? Response not required due to responses to other questions. Emergency Severity Index (MARK) level: Level 4 Infectious Disease Risk Screen: Travel Screen: Have you traveled within the [place] within the last 21 days? Yes: State(s): [place] thru [place] Have you traveled outside the [place] within the last 21 days? No Within the last 14 days, have you had: No known exposure Other Exposure to Infectious Disease: No known exposure Patient reported the following symptoms: No Symptoms Present History of Multiple Drug Resistant Organism (MDRO): No Previously documented allergies: Patient has answered NKA Current Problems: Active problems - Computerized Problem List is the source for the followin. Insomnia 2. Obesity ([facility] [id number]) 3. History of colonic polyp 4. Psoriasis 5. Diverticulitis 6. Hyperlipidemia /es/ LOU ALVARADO RN MSN rn Signed: 08/24/2024 14:45 LOU ALVARADO RN [facility]
--- OUTSIDE RECORDS SUMMARY | 2024-10-15 09:50 | XMS_ITS | Continuity of Care Document ---
Author Name [facility] Organization [facility] Care Team Providers Care Director Counseling Bureau Name Role Phone [facility] Unavailable Unavailable Problems Combined list of problems from Department of Defense and Veterans Affairs facilities. It does not include entries that were removed or entered in error. 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 5 Condition Aug 24, 2024 Entered By: CLARICEJuly Comment: Infection to left elbow MRSA positive [facility] Diverticulitis Active Condition May [id number] Entered By: EB NAVARRO PA-C Comment: perf 02/2015, R hemicolectomy , sm bowel resection, end ileostomy, takedown 07/2015 [facility] History of colonic polyp Active Condition Dec 10, 2022 Entered By: EDILBERTO ALONZO RN Comment: colo Jain 11/2022, rpt 7-10 yrs, due 11/2029 [facility] Hyperlipidemia Active Condition [facility] Insomnia Active Condition [facility] Obesity (SCT [id number]) Active Condition [facility] Psoriasis Active Condition [facility] Diagnosis: ICD-10-CM L03.114 Cellulitis of left upper limb Active Diagnosis [facility] Diagnosis: ICD-10-CM G31.84 Mild cognitive impairment of uncertain or unknown etiology Active Diagnosis [facility] Diagnosis: ICD-10-CM E78.5 Hyperlipidemia, unspecified Active Diagnosis [facility] Diagnosis: ICD-10-CM I78.1 Nevus, non-neoplastic Active Diagnosis [facility] Diagnosis: ICD-10-CM L98.9 Disorder of the skin and subcutaneous tissue, unspecified Active Diagnosis [facility] Diagnosis: ICD-10-CM L82.1 Other seborrheic keratosis Active Diagnosis [facility] Diagnosis: ICD-10-CM Z13.89 Encounter for screening for other disorder Active Diagnosis [facility] Diagnosis: ICD-10-CM M65.4 Radial styloid tenosynovitis [de Quervain] Active Diagnosis [facility] Diagnosis: ICD-10-CM Z71.89 Other specified counseling Active Diagnosis [facility] Medications Combined list of outpatient medications from Department of Defense and Veterans Affairs facilities.Medications provided include 1) outpatient medications from the last 15 months, and 2) patient-reported medications. Medication Details Route Status Patient Instructions Prescription Expires Prescription Number Last Dispense Date Ordering Provider Order Date Order Qty Source ASPIRIN 81MG TAB,EC TAKE ONE TABLET BY MOUTH ONCE DAILY ORAL ACTIVE BRIANNA NAVARRO PA-C 2017 [facility] COAL TAR 0.5% SHAMPOO USE SMALL AMOUNT SHAMPOO TWICE WEEKLY NEEDED FOR DANDRUFF TOPICA L ACTIVE 08/12/2025 [id number] DIAMANET BARNES RLENE A 2024 255 [facility] FAMOTIDINE 20MG TAB TAKE ONE TABLET BY MOUTH DAILY PRN ORAL ACTIVE MOLLYDIAMANTE WONG RLENE A 2023 [facility] ROSUVASTATI N CA 20MG TAB TAKE ONE-HALF TABLET BY MOUTH EVERY EVENING *TO LOWER CHOLESTE ROL* ORAL ACTIVE 08/12/2025 [id number] 5 MOLLYDIAMANTE WONG RLENE A 2024 45 [facility] ROSUVASTATI N CA 20MG TAB TAKE ONE-HALF TABLET BY MOUTH EVERY EVENING *TO LOWER CHOLESTE ROL* ORAL DISCONT INUED 08/21/2024 [id number] MOLLYDIAMANTE WONG RLENE A 2023 45 [facility] ROSUVASTATI N CA 20MG TAB TAKE ONE-HALF TABLET BY MOUTH EVERY EVENING *TO LOWER CHOLESTE ROL* ORAL DISCONT INUED 08/19/2023 [id number] DOUG JETT 2022 45 [facility] SULFAMETHOX AZOLE 800MG/TRIME THOPRIM 160MG TAB TAKE 1 TABLET BY MOUTH TWO TIMES EACH DAY FOR INFECTIO N UNTIL ALL DOSES ARE TAKEN/FI NISHED ORAL 09/23/2024 [id number] LASSA,APR IL A 2024 20 [facility] Immunizations Combined list of available immunizations from the Department of Defense and Veterans Affairs facilities. Immunization Series Date Given Administered By Site Reaction Lot Number CVX Code Drug Surveillance Supervisor Status Comments Source ZOSTER RECOMBINANT 2 2018 [...] Reference Range Date Interpretation Specimen Comments Source AST(SGOT) ASPARTATE AMINOTRANSF ERASE [ENZYMATIC ACTIVITY/VO LUME] IN SERUM OR PLASMA 25 U/L 10 - 37 08/06 Specimen Type: PLASMA Comment: This is an estimate of GFR using the CKD-Epi equation and not a measurement . Results may be impacted by variability in physiology age, sex, serum creatinine. Units for EGFR (2020 CKD-EPI)=mL /min/1.73 square meters. Ordering Provider: BHAVNA BARNES Report Released Date/Time: Aug 21, 2023 10:44 AM Reporting Lab: [address] [address] Performing Lab: [place] [phone] [facility] BASIC METABOLIC CREATININE [MASS/VOLUM E] IN SERUM OR PLASMA 1.10 mg/dL 0.73 - 1.18 08/06 Specimen Type: PLASMA Comment: This is an estimate of GFR using the CKD-Epi equation and not a measurement . Results may be impacted by variability in physiology age, sex, serum creatinine. Units for EGFR (2020 CKD-EPI)=mL /min/1.73 square meters. Ordering Provider: BHAVNA BARNES Report Released Date/Time: Aug 21, 2023 10:44 AM Reporting Lab: [address] [facility] [address] Performing Lab: [address] [address] [facility] BASIC METABOLIC UREA NITROGEN [MASS/VOLUM E] IN SERUM OR PLASMA 13 mg/dL 7 - 21 08/06 Specimen Type: PLASMA Comment: This is an estimate of GFR using the CKD-Epi equation and not a measurement . Results may be impacted by variability in physiology age, sex, serum creatinine. Units for EGFR (2020 CKD-EPI)=mL /min/1.73 square meters. Ordering Provider: BHAVAN BARNES Report Released Date/Time: Aug 21, 2023 10:44 AM Reporting Lab: [address] [address] Performing Lab: [place] [phone] [facility] BASIC METABOLIC GLUCOSE [MASS/VOLUM E] IN SERUM OR PLASMA 123 mg/dL 70 - 99 08/06 H Specimen Type: PLASMA Comment: This is an estimate of GFR using the CKD-Epi equation and not a measurement . Results may be impacted by variability in physiology age, sex, serum creatinine. Units for EGFR (2020 CKD-EPI)=mL /min/1.73 square meters. Ordering Provider: BHAVNA BARNES Report Released Date/Time: Aug 21, 2023 10:44 AM Reporting Lab: [place] [address] [facility] [address] Performing Lab: [place] [address] [place] [phone] [facility] BASIC METABOLIC SODIUM [MOLES/VOLU ME] IN SERUM OR PLASMA 140 mmol/L 136 - 145 08/06 Specimen Type: PLASMA Comment: This is an estimate of GFR using the CKD-Epi equation and not a measurement . Results may be impacted by variability in physiology age, sex, serum creatinine. Units for EGFR (2020 CKD-EPI)=mL /min/1.73 square meters. Ordering Provider: BHAVNA BARNES Report Released Date/Time: Aug 21, 2023 10:44 AM Reporting Lab: [place] [address] [address] [facility] [address] Performing Lab: [place] [address] [address] [facility] [address] [facility] BASIC METABOLIC POTASSIUM [MOLES/VOLU ME] IN SERUM OR PLASMA 4.2 mmol/L 3.5 - 4.7 08/06 Specimen Type: PLASMA Comment: This is an estimate of GFR using the CKD-Epi equation and not a measurement . Results may be impacted by variability in physiology age, sex, serum creatinine. Units for EGFR (2020 CKD-EPI)=mL /min/1.73 square meters. Ordering Provider: BHAVNA BARNES Report Released Date/Time: Aug 21, 2023 10:44 AM Reporting Lab: [place] [phone] Performing Lab: [place] [phone] [facility] BASIC METABOLIC CHLORIDE [MOLES/VOLU ME] IN SERUM OR PLASMA 106 mmol/L 98 - 109 08/06 Specimen Type: PLASMA Comment: This is an estimate of GFR using the CKD-Epi equation and not a measurement . Results may be impacted by variability in physiology age, sex, serum creatinine. Units for EGFR (2020 CKD-EPI)=mL /min/1.73 square meters. Ordering Provider: BHAVNA BARNES Report Released Date/Time: Aug 21, 2023 10:44 AM Reporting Lab: [address] [facility] [address] Performing Lab: [address] [place] [phone] [facility] BASIC METABOLIC CARBON DIOXIDE, TOTAL [MOLES/VOLU ME] IN SERUM OR PLASMA 29 mmol/L 21 - 32 08/06 Specimen Type: PLASMA Comment: This is an estimate of GFR using the CKD-Epi equation and not a measurement . Results may be impacted by variability in physiology age, sex, serum creatinine. Units for EGFR (2020 CKD-EPI)=mL /min/1.73 square meters. Ordering Provider: BHAVNA BARNES Report Released Date/Time: Aug 21, 2023 10:44 AM Reporting Lab: [address] [place] [phone] Performing Lab: [address] [place] [phone] [facility] BASIC METABOLIC CALCIUM [MASS/VOLUM E] IN SERUM OR PLASMA 9.3 mg/dL 8.7 - 10.4 08/06 Specimen Type: PLASMA Comment: This is an estimate of GFR using the CKD-Epi equation and not a measurement . Results may be impacted by variability in physiology age, sex, serum creatinine. Units for EGFR (2020 CKD-EPI)=mL /min/1.73 square meters. Ordering Provider: BHAVNA BARNES Report Released Date/Time: Aug 21, 2023 10:44 AM Reporting Lab: [address] [phone] Performing Lab: [address] [phone] [facility] BASIC METABOLIC ANION GAP IN SERUM OR PLASMA 5 mmol/L 5 - 15 08/06 Specimen Type: PLASMA Comment: This is an estimate of GFR using the CKD-Epi equation and not a measurement . Results may be impacted by variability in physiology age, sex, serum creatinine. Units for EGFR (2020 CKD-EPI)=mL /min/1.73 square meters. Ordering Provider: BHAVNA BARNES Report Released Date/Time: Aug 21, 2023 10:44 AM Reporting Lab: [address] [phone] Performing Lab: [address] [phone] [facility] BASIC METABOLIC UREA NITROGEN/CR EATININE [MASS RATIO] IN SERUM OR PLASMA 12 - 08/06 Specimen Type: PLASMA Comment: This is an estimate of GFR using the CKD-Epi equation and not a measurement . Results may be impacted by variability in physiology age, sex, serum creatinine. Units for EGFR (2020 CKD-EPI)=mL /min/1.73 square meters. Ordering Provider: BHAVNA BARNES Report Released Date/Time: Aug 21, 2023 10:44 AM Reporting Lab: [address] [phone] Performing Lab: [address] [phone] [facility] BASIC METABOLIC GLOMERULAR FILTRATION RATE/1.73 SQ M.PREDICTED [VOLUME RATE/AREA] IN SERUM, PLASMA OR BLOOD BY CREATININE- BASED FORMULA (CKD-EPI 2020) 73 60 08/06 Specimen Type: PLASMA Comment: This is an estimate of GFR using the CKD-Epi equation and not a measurement . Results may be impacted by variability in physiology age, sex, serum creatinine. Units for EGFR (2020 CKD-EPI)=mL /min/1.73 square meters. Ordering Provider: BHAVNA BARNES Report Released Date/Time: Aug 21, 2023 10:44 AM Reporting Lab: [address] [place] [address] Performing Lab: [address] [phone] [facility] ALT(SGPT) ALANINE AMINOTRANSF ERASE [ENZYMATIC ACTIVITY/VO LUME] IN SERUM OR PLASMA 38 U/L 10 - 65 08/06 Specimen Type: PLASMA Comment: This is an estimate of GFR using the CKD-Epi equation and not a measurement . Results may be impacted by variability in physiology age, sex, serum creatinine. Units for EGFR (2020 CKD-EPI)=mL /min/1.73 square meters. Ordering Provider: BHAVNA BARNES Report Released Date/Time: Aug 21, 2023 10:44 AM Reporting Lab: [address] [phone] Performing Lab: [place] [phone] [facility] LIPID PROFILE CHOLESTEROL [MASS/VOLUM E] IN SERUM OR PLASMA 85 mg/dL 0 - 199 08/06 Specimen Type: PLASMA Comment: This is an estimate of GFR using the CKD-Epi equation and not a measurement . Results may be impacted by variability in physiology age, sex, serum creatinine. Units for EGFR (2020 CKD-EPI)=mL /min/1.73 square meters. Ordering Provider: BHAVNA BARNES Report Released Date/Time: Aug 21, 2023 10:44 AM Reporting Lab: [address] [phone] Performing Lab: [place] [phone] [facility] LIPID PROFILE TRIGLYCERID E [MASS/VOLUM E] IN SERUM OR PLASMA 86 mg/dL 0 - 149 08/06 Specimen Type: PLASMA Comment: This is an estimate of GFR using the CKD-Epi equation and not a measurement . Results may be impacted by variability in physiology age, sex, serum creatinine. Units for EGFR (2020 CKD-EPI)=mL /min/1.73 square meters. Ordering Provider: BHAVNA BARNES Report Released Date/Time: Aug 21, 2023 10:44 AM Reporting Lab: [address] [phone] Performing Lab: [address] [facility] [address] [facility] LIPID PROFILE CHOLESTEROL IN HDL [MASS/VOLUM E] IN SERUM OR PLASMA 38 mg/dL 40 08/06 L Specimen Type: PLASMA Comment: This is an estimate of GFR using the CKD-Epi equation and not a measurement . Results may be impacted by variability in physiology age, sex, serum creatinine. Units for EGFR (2020 CKD-EPI)=mL /min/1.73 square meters. Ordering Provider: BHAVNA BARNES Report Released Date/Time: Aug 21, 2023 10:44 AM Reporting Lab: [facility] [address] [facility] [address] Performing Lab: [place] [address] [address] [facility] [address] [facility] LIPID PROFILE CHOLESTEROL IN LDL [MASS/VOLUM E] IN SERUM OR PLASMA BY CALCULATION 30 mg/dL 0 - 99 08/06 Specimen Type: PLASMA Comment: This is an estimate of GFR using the CKD-Epi equation and not a measurement . Results may be impacted by variability in physiology age, sex, serum creatinine. Units for EGFR (2020 CKD-EPI)=mL /min/1.73 square meters. Ordering Provider: BHAVNA BARNES Report Released Date/Time: Aug 21, 2023 10:44 AM Reporting Lab: [place] [address] [address] [facility] [phone] Performing Lab: [place] [address] [address] [facility] [phone] [facility] LIPID PROFILE CHOLESTEROL IN LDL [MASS/VOLUM E] IN SERUM OR PLASMA BY DIRECT ASSAY [facility] 08/06 Specimen Type: PLASMA Comment: This is an estimate of GFR using the CKD-Epi equation and not a measurement . Results may be impacted by variability in physiology age, sex, serum creatinine. Units for EGFR (2020 CKD-EPI)=mL /min/1.73 square meters. Ordering Provider: BHAVNA BARNES Report Released Date/Time: Aug 21, 2023 10:44 AM Reporting Lab: [place] [address] [address] [facility] [address] Performing Lab: [place] [address] [address] [facility] [address] [facility] PROSTATE SPECIFIC ANTIGEN PROSTATE SPECIFIC AG [MASS/VOLUM E] IN SERUM OR PLASMA 0.52 ng/mL 0.00 - 4.00 08/06 Specimen Type: SERUM Comment: PSA was performed on the Siemens Sharewave Immunoassay Analyzer. Ordering Provider: BHAVNA BARNES Report Released Date/Time: Aug 21, 2023 10:44 AM Reporting Lab: [place] [address] [address] [facility] [address] Performing Lab: [place] [address] [address] [place] [phone] [facility] CBC WITH DIFFERENT IAL LEUKOCYTES [#/VOLUME] IN BLOOD BY AUTOMATED COUNT 6.0 10*3/u L 4.0 - 11.0 08/06 Specimen Type: BLOOD No comment entered. Ordering Provider: BHAVNA BARNES Report Released Date/Time: Aug 21, 2023 10:44 AM Reporting Lab: [place] [address] [address] [facility] [address] Performing Lab: [place] [address] [address] [facility] [phone] [facility] CBC WITH DIFFERENT IAL ERYTHROCYTE S [#/VOLUME] IN BLOOD BY AUTOMATED COUNT 5.08 10*6/u L 4.20 - 5.70 08/06 Specimen Type: BLOOD No comment entered. Ordering Provider: BHAVNA BARNES Report Released Date/Time: Aug 21, 2023 10:44 AM Reporting Lab: [place] [address] [address] [facility] [address] Performing Lab: [place] [address] [address] [facility] [address] [facility] CBC WITH DIFFERENT IAL HEMOGLOBIN [MASS/VOLUM E] IN BLOOD 15.1 g/dL 13.0 - 17.0 08/06 Specimen Type: BLOOD No comment entered. Ordering Provider: BHAVNA BARNES Report Released Date/Time: Aug 21, 2023 10:44 AM Reporting Lab: [place] [address] [address] [facility] [address] Performing Lab: [place] [address] [address] [facility] [address] [facility] CBC WITH DIFFERENT IAL HEMATOCRIT [VOLUME FRACTION] OF BLOOD BY AUTOMATED COUNT 45.3 40.0 - 51.0 08/06 Specimen Type: BLOOD No comment entered. Ordering Provider: BHAVNA BARNES Report Released Date/Time: Aug 21, 2023 10:44 AM Reporting Lab: [facility] [address] [facility] [address] Performing Lab: [facility] [address] [facility] [address] [facility] CBC WITH DIFFERENT IAL MCV [ENTITIC VOLUME] BY AUTOMATED COUNT 89.2 fL 82.0 - 99.0 08/06 Specimen Type: BLOOD No comment entered. Ordering Provider: BHAVNA BARNES Report Released Date/Time: Aug 21, 2023 10:44 AM Reporting Lab: [facility] [address] [facility] [address] Performing Lab: [place] [address] [address] [facility] [address] [facility] CBC WITH DIFFERENT IAL MCH [ENTITIC MASS] BY AUTOMATED COUNT 29.7 pg 27.0 - 34.0 08/06 Specimen Type: BLOOD No comment entered. Ordering Provider: BHAVNA BARNES Report Released Date/Time: Aug 21, 2023 10:44 AM Reporting Lab: [facility] [address] [facility] [address] Performing Lab: [place] [address] [address] [facility] [address] [facility] CBC WITH DIFFERENT IAL MCHC [MASS/VOLUM E] BY AUTOMATED COUNT 33.3 g/dL 31.0 - 37.0 08/06 Specimen Type: BLOOD No comment entered. Ordering Provider: BHAVNA BARNES Report Released Date/Time: Aug 21, 2023 10:44 AM Reporting Lab: [facility] [address] [facility] [address] Performing Lab: [place] [address] [address] [facility] [address] [facility] CBC WITH DIFFERENT IAL PLATELETS [#/VOLUME] IN BLOOD BY AUTOMATED COUNT 165 10*3/u L 130 - 400 08/06 Specimen Type: BLOOD No comment entered. Ordering Provider: BHAVNA BARNES Report Released Date/Time: Aug 21, 2023 10:44 AM Reporting Lab: [facility] [address] [facility] [address] Performing Lab: [facility] [address] [facility] [address] [facility] CBC WITH DIFFERENT IAL PLATELET MEAN VOLUME [ENTITIC VOLUME] IN BLOOD BY AUTOMATED COUNT 10.3 fL 8.0 - 12.0 08/06 Specimen Type: BLOOD No comment entered. Ordering Provider: BHAVNA BARNES Report Released Date/Time: Aug 21, 2023 10:44 AM Reporting Lab: [place] [address] [address] [facility] [address] Performing Lab: [place] [address] [address] [facility] [address] [facility] CBC WITH DIFFERENT IAL ERYTHROCYTE DISTRIBUTIO N WIDTH [RATIO] BY AUTOMATED COUNT 13.0 < 15.0 - 15.0 08/06 Specimen Type: BLOOD No comment entered. Ordering Provider: BHAVNA BARNES Report Released Date/Time: Aug 21, 2023 10:44 AM Reporting Lab: [place] [address] [address] [facility] [address] Performing Lab: [place] [address] [address] [facility] [address] [facility] CBC WITH DIFFERENT IAL MONOCYTES/1 00 LEUKOCYTES IN BLOOD BY AUTOMATED COUNT 11.4 08/06 Specimen Type: BLOOD No comment entered. Ordering Provider: BHAVNA BARNES Report Released Date/Time: Aug 21, 2023 10:44 AM Reporting Lab: [place] [address] [address] [facility] [address] Performing Lab: [place] [address] [address] [facility] [address] [facility] CBC WITH DIFFERENT IAL LYMPHOCYTES [#/VOLUME] IN BLOOD BY AUTOMATED COUNT 1.5 10*3/u L 1.0 - 4.0 08/06 Specimen Type: BLOOD No comment entered. Ordering Provider: BHAVNA BARNES Report Released Date/Time: Aug 21, 2023 10:44 AM Reporting Lab: [place] [address] [address] [facility] [address] Performing Lab: [place] [address] [address] [facility] [address] [facility] CBC WITH DIFFERENT IAL LYMPHOCYTES /100 LEUKOCYTES IN BLOOD BY AUTOMATED COUNT 25.5 08/06 Specimen Type: BLOOD No comment entered. Ordering Provider: BHAVNA BARNES Report Released Date/Time: Aug 21, 2023 10:44 AM Reporting Lab: [facility] [address] [facility] [address] Performing Lab: [facility] [address] [facility] [address] [facility] CBC WITH DIFFERENT IAL EOSINOPHILS /100 LEUKOCYTES IN BLOOD BY AUTOMATED COUNT 3.1 08/06 Specimen Type: BLOOD No comment entered. Ordering Provider: BHAVNA BARNES Report Released Date/Time: Aug 21, 2023 10:44 AM Reporting Lab: [facility] [address] [facility] [address] Performing Lab: [facility] [address] [facility] [address] [facility] CBC WITH DIFFERENT IAL BASOPHILS/1 00 LEUKOCYTES IN BLOOD BY AUTOMATED COUNT 0.8 08/06 Specimen Type: BLOOD No comment entered. Ordering Provider: BHAVNA BARNES Report Released Date/Time: Aug 21, 2023 10:44 AM Reporting Lab: [facility] [address] [facility] [address] Performing Lab: [facility] [address] [facility] [address] [facility] CBC WITH DIFFERENT IAL NEUTROPHILS /100 LEUKOCYTES IN BLOOD BY AUTOMATED COUNT 58.7 08/06 Specimen Type: BLOOD No comment entered. Ordering Provider: BHAVNA BARNES Report Released Date/Time: Aug 21, 2023 10:44 AM Reporting Lab: [facility] [address] [facility] [address] Performing Lab: [facility] [address] [facility] [address] [facility] CBC WITH DIFFERENT IAL EOSINOPHILS [#/VOLUME] IN BLOOD BY AUTOMATED COUNT 0.2 10*3/u L 0.0 - 0.4 08/06 Specimen Type: BLOOD No comment entered. Ordering Provider: BHAVNA BARNES Report Released Date/Time: Aug 21, 2023 10:44 AM Reporting Lab: [facility] [address] [facility] [address] Performing Lab: [facility] [address] [facility] [address] [facility] CBC WITH DIFFERENT IAL NEUTROPHILS [#/VOLUME] IN BLOOD 3.5 10*3/u L 1.5 - 8.0 08/06 Specimen Type: BLOOD No comment entered. Ordering Provider: BHAVNA BARNES Report Released Date/Time: Aug 21, 2023 10:44 AM Reporting Lab: [facility] [address] [facility] [address] Performing Lab: [place] [address] [address] [place] [phone] [facility] CBC WITH DIFFERENT IAL BASOPHILS [#/VOLUME] IN BLOOD BY AUTOMATED COUNT 0.1 10*3/u L 0.0 - 0.2 08/06 Specimen Type: BLOOD No comment entered. Ordering Provider: BHAVNA BARNES Report Released Date/Time: Aug 21, 2023 10:44 AM Reporting Lab: [place] [address] [address] [facility] [address] Performing Lab: [place] [address] [address] [place] [phone] [facility] CBC WITH DIFFERENT IAL MONOCYTES [#/VOLUME] IN BLOOD BY AUTOMATED COUNT 0.7 10*3/u L 0.2 - 1.0 08/06 Specimen Type: BLOOD No comment entered. Ordering Provider: BHAVNA BARNES Report Released Date/Time: Aug 21, 2023 10:44 AM Reporting Lab: [place] [address] [address] [facility] [address] Performing Lab: [address] [facility] [address] [facility] CBC WITH DIFFERENT IAL IMMATURE GRANULOCYTE S [#/VOLUME] IN BLOOD <0.110 *3/uL 0.0 - 0.5 08/06 Specimen Type: BLOOD No comment entered. Ordering Provider: BHAVNA BARNES Report Released Date/Time: Aug 21, 2023 10:44 AM Reporting Lab: [address] [facility] [address] Performing Lab: [place] [address] [address] [facility] [address] [facility] CBC WITH DIFFERENT IAL IMMATURE GRANULOCYTE S/100 LEUKOCYTES IN BLOOD 0.5 08/06 Specimen Type: BLOOD No comment entered. Ordering Provider: BHAVNA BARNES Report Released Date/Time: Aug 21, 2023 10:44 AM Reporting Lab: [address] [address] Performing Lab: [address] [address] [facility] CBC WITH DIFFERENT IAL NUCLEATED ERYTHROCYTE S [#/VOLUME] IN BLOOD BY AUTOMATED COUNT <0.011 0*3/uL 0.000 - 0.012 08/06 Specimen Type: BLOOD No comment entered. Ordering Provider: BHAVNA BARNES Report Released Date/Time: Aug 21, 2023 10:44 AM Reporting Lab: [address] [address] Performing Lab: [place] [phone] [facility] CBC WITH DIFFERENT IAL NUCLEATED ERYTHROCYTE S [PRESENCE] IN BLOOD BY AUTOMATED COUNT 0.0 /100{W BCs} 0.0 - 0.2 08/06 Specimen Type: BLOOD No comment entered. Ordering Provider: BHAVNA BARNES Report Released Date/Time: Aug 21, 2023 10:44 AM Reporting Lab: [address] [address] Performing Lab: [address] [address] [facility] CBC HEMOGRAM ONLY LEUKOCYTES [#/VOLUME] IN BLOOD BY AUTOMATED COUNT 7.9 10*3/u L 4.0 - 11.0 08/20 Specimen Type: BLOOD No comment entered. Ordering Provider: BHAVNA BARNES Report Released Date/Time: May 14, 2023 11:50 AM Reporting Lab: [address] [address] Performing Lab: [address] [address] [facility] CBC HEMOGRAM ONLY ERYTHROCYTE S [#/VOLUME] IN BLOOD BY AUTOMATED COUNT 5.01 10*6/u L 4.20 - 5.70 08/20 Specimen Type: BLOOD No comment entered. Ordering Provider: BHAVNA BARNES Report Released Date/Time: May 14, 2023 11:50 AM Reporting Lab: [facility] [address] [facility] [address] Performing Lab: [facility] [address] [facility] [address] [facility] CBC HEMOGRAM ONLY HEMOGLOBIN [MASS/VOLUM E] IN BLOOD 14.8 g/dL 13.0 - 17.0 08/20 Specimen Type: BLOOD No comment entered. Ordering Provider: BHAVNA BARNES Report Released Date/Time: May 14, 2023 11:50 AM Reporting Lab: [facility] [address] [facility] [address] Performing Lab: [facility] [address] [facility] [address] [facility] CBC HEMOGRAM ONLY HEMATOCRIT [VOLUME FRACTION] OF BLOOD BY AUTOMATED COUNT 44.3 40.0 - 51.0 08/20 Specimen Type: BLOOD No comment entered. Ordering Provider: BHAVNA BARNES Report Released Date/Time: May 14, 2023 11:50 AM Reporting Lab: [facility] [address] [facility] [address] Performing Lab: [facility] [address] [facility] [address] [facility] CBC HEMOGRAM ONLY MCV [ENTITIC VOLUME] BY AUTOMATED COUNT 88.4 fL 82.0 - 99.0 08/20 Specimen Type: BLOOD No comment entered. Ordering Provider: BHAVNA BARNES Report Released Date/Time: May 14, 2023 11:50 AM Reporting Lab: [facility] [address] [facility] [address] Performing Lab: [facility] [address] [facility] [address] [facility] CBC HEMOGRAM ONLY MCH [ENTITIC MASS] BY AUTOMATED COUNT 29.5 pg 27.0 - 34.0 08/20 Specimen Type: BLOOD No comment entered. Ordering Provider: BHAVNA BARNES Report Released Date/Time: May 14, 2023 11:50 AM Reporting Lab: [facility] [address] [facility] [address] Performing Lab: [facility] [address] [facility] [address] [facility] CBC HEMOGRAM ONLY MCHC [MASS/VOLUM E] BY AUTOMATED COUNT 33.4 g/dL 31.0 - 37.0 08/20 Specimen Type: BLOOD No comment entered. Ordering Provider: BHAVNA BARNES Report Released Date/Time: May 14, 2023 11:50 AM Reporting Lab: [facility] [address] [facility] [address] Performing Lab: [facility] [address] [facility] [address] [facility] CBC HEMOGRAM ONLY PLATELETS [#/VOLUME] IN BLOOD BY AUTOMATED COUNT 197 10*3/u L 130 - 400 08/20 Specimen Type: BLOOD No comment entered. Ordering Provider: BHAVNA BARNES Report Released Date/Time: May 14, 2023 11:50 AM Reporting Lab: [facility] [address] [facility] [address] Performing Lab: [place] [address] [address] [facility] [address] [facility] CBC HEMOGRAM ONLY PLATELET MEAN VOLUME [ENTITIC VOLUME] IN BLOOD BY AUTOMATED COUNT 10.7 fL 8.0 - 12.0 08/20 Specimen Type: BLOOD No comment entered. Ordering Provider: BHAVNA BARNES Report Released Date/Time: May 14, 2023 11:50 AM Reporting Lab: [facility] [address] [facility] [address] Performing Lab: [facility] [address] [facility] [address] [facility] CBC HEMOGRAM ONLY ERYTHROCYTE DISTRIBUTIO N WIDTH [RATIO] BY AUTOMATED COUNT 13.2 < 15.0 - 15.0 08/20 Specimen Type: BLOOD No comment entered. Ordering Provider: BHAVNA BARNES Report Released Date/Time: May 14, 2023 11:50 AM Reporting Lab: [facility] [address] [facility] [address] Performing Lab: [facility] [address] [facility] [address] [facility] CBC HEMOGRAM ONLY NUCLEATED ERYTHROCYTE S [#/VOLUME] IN BLOOD BY AUTOMATED COUNT <0.011 0*3/uL 0.000 - 0.012 08/20 Specimen Type: BLOOD No comment entered. Ordering Provider: BHAVNA BARNES Report Released Date/Time: May 14, 2023 11:50 AM Reporting Lab: [address] [address] Performing Lab: [address] [address] [facility] CBC HEMOGRAM ONLY NUCLEATED ERYTHROCYTE S [PRESENCE] IN BLOOD BY AUTOMATED COUNT 0.0 /100{W BCs} 0.0 - 0.2 08/20 Specimen Type: BLOOD No comment entered. Ordering Provider: BHAVNA BARNES Report Released Date/Time: May 14, 2023 11:50 AM Reporting Lab: [address] [address] Performing Lab: [address] [address] [facility] ALT(SGPT) ALANINE AMINOTRANSF ERASE [ENZYMATIC ACTIVITY/VO LUME] IN SERUM OR PLASMA 51 U/L 10 - 65 08/20 Specimen Type: PLASMA Comment: This is an estimate of GFR using the CKD-Epi equation and not a measurement . Results may be impacted by variability in physiology age, sex, serum creatinine. Units for EGFR (2020 CKD-EPI)=mL /min/1.73 square meters. Ordering Provider: BHAVNA BARNES Report Released Date/Time: May 14, 2023 11:50 AM Reporting Lab: [address] [address] Performing Lab: [address] [address] [facility] AST(SGOT) ASPARTATE AMINOTRANSF ERASE [ENZYMATIC ACTIVITY/VO LUME] IN SERUM OR PLASMA 26 U/L 10 - 37 08/20 Specimen Type: PLASMA Comment: This is an estimate of GFR using the CKD-Epi equation and not a measurement . Results may be impacted by variability in physiology age, sex, serum creatinine. Units for EGFR (2020 CKD-EPI)=mL /min/1.73 square meters. Ordering Provider: BHAVNA BARNES Report Released Date/Time: May 14, 2023 11:50 AM Reporting Lab: [address] [address] Performing Lab: [address] [place] [address] [facility] BASIC METABOLIC CREATININE [MASS/VOLUM E] IN SERUM OR PLASMA 1.09 mg/dL 0.73 - 1.18 08/20 Specimen Type: PLASMA Comment: This is an estimate of GFR using the CKD-Epi equation and not a measurement . Results may be impacted by variability in physiology age, sex, serum creatinine. Units for EGFR (2020 CKD-EPI)=mL /min/1.73 square meters. Ordering Provider: BHAVNA BARNES Report Released Date/Time: May 14, 2023 11:50 AM Reporting Lab: [address] [facility] [address] Performing Lab: [address] [address] [facility] BASIC METABOLIC UREA NITROGEN [MASS/VOLUM E] IN SERUM OR PLASMA 17 mg/dL 7 - 21 08/20 Specimen Type: PLASMA Comment: This is an estimate of GFR using the CKD-Epi equation and not a measurement . Results may be impacted by variability in physiology age, sex, serum creatinine. Units for EGFR (2020 CKD-EPI)=mL /min/1.73 square meters. Ordering Provider: BHAVNA BARNES Report Released Date/Time: May 14, 2023 11:50 AM Reporting Lab: [address] [address] Performing Lab: [address] [facility] [address] [facility] BASIC METABOLIC GLUCOSE [MASS/VOLUM E] IN SERUM OR PLASMA 106 mg/dL 70 [...] May 14, 2023 11:50 AM Reporting Lab: [address] [facility] [address] Performing Lab: [address] [address] [facility] BASIC METABOLIC SODIUM [MOLES/VOLU ME] IN SERUM OR PLASMA 141 mmol/L 136 - 145 08/20 Specimen Type: PLASMA Comment: This is an estimate of GFR using the CKD-Epi equation and not a measurement . Results may be impacted by variability in physiology age, sex, serum creatinine. Units for EGFR (2020 CKD-EPI)=mL /min/1.73 square meters. Ordering Provider: BHAVNA BARNES Report Released Date/Time: May 14, 2023 11:50 AM Reporting Lab: [address] [address] Performing Lab: [address] [address] [facility] BASIC METABOLIC POTASSIUM [MOLES/VOLU ME] IN SERUM OR PLASMA 4.1 mmol/L 3.5 - 4.7 08/20 Specimen Type: PLASMA Comment: This is an estimate of GFR using the CKD-Epi equation and not a measurement . Results may be impacted by variability in physiology age, sex, serum creatinine. Units for EGFR (2020 CKD-EPI)=mL /min/1.73 square meters. Ordering Provider: BHAVNA BARNES Report Released Date/Time: May 14, 2023 11:50 AM Reporting Lab: [address] [address] Performing Lab: [address] [address] [facility] BASIC METABOLIC CHLORIDE [MOLES/VOLU ME] IN SERUM OR PLASMA 108 mmol/L 98 - 109 08/20 Specimen Type: PLASMA Comment: This is an estimate of GFR using the CKD-Epi equation and not a measurement . Results may be impacted by variability in physiology age, sex, serum creatinine. Units for EGFR (2020 CKD-EPI)=mL /min/1.73 square meters. Ordering Provider: BHAVNA BARNES Report Released Date/Time: May 14, 2023 11:50 AM Reporting Lab: [address] [address] Performing Lab: [address] [address] [facility] BASIC METABOLIC CARBON DIOXIDE, TOTAL [MOLES/VOLU ME] IN SERUM OR PLASMA 27.5 mmol/L 21.0 - 32.0 08/20 Specimen Type: PLASMA Comment: This is an estimate of GFR using the CKD-Epi equation and not a measurement . Results may be impacted by variability in physiology age, sex, serum creatinine. Units for EGFR (2020 CKD-EPI)=mL /min/1.73 square meters. Ordering Provider: BHAVNA BARNES Report Released Date/Time: May 14, 2023 11:50 AM Reporting Lab: [place] [address] [facility] [address] Performing Lab: [place] [address] [facility] [address] [facility] BASIC METABOLIC CALCIUM [MASS/VOLUM E] IN SERUM OR PLASMA 9.6 mg/dL 8.7 - 10.4 08/20 Specimen Type: PLASMA Comment: This is an estimate of GFR using the CKD-Epi equation and not a measurement . Results may be impacted by variability in physiology age, sex, serum creatinine. Units for EGFR (2020 CKD-EPI)=mL /min/1.73 square meters. Ordering Provider: BHAVNA BARNES Report Released Date/Time: May 14, 2023 11:50 AM Reporting Lab: [place] [address] [facility] [address] Performing Lab: [place] [address] [facility] [address] [facility] BASIC METABOLIC ANION GAP IN SERUM OR PLASMA 6 [...] May 14, 2023 11:50 AM Reporting Lab: [place] [address] [facility] [address] Performing Lab: [place] [address] [facility] [address] [facility] BASIC METABOLIC UREA NITROGEN/CR EATININE [MASS RATIO] IN SERUM OR PLASMA 16 10 - 20 08/20 Specimen Type: PLASMA Comment: This is an estimate of GFR using the CKD-Epi equation and not a measurement . Results may be impacted by variability in physiology age, sex, serum creatinine. Units for EGFR (2020 CKD-EPI)=mL /min/1.73 square meters. Ordering Provider: BHAVNA BARNES Report Released Date/Time: May 14, 2023 11:50 AM Reporting Lab: [address] [address] Performing Lab: [address] [address] [facility] BASIC METABOLIC GLOMERULAR FILTRATION RATE/1.73 SQ M.PREDICTED [VOLUME RATE/AREA] IN SERUM, PLASMA OR BLOOD BY CREATININE- BASED FORMULA (CKD-EPI 2020) 74 60 08/20 Specimen Type: PLASMA Comment: This is an estimate of GFR using the CKD-Epi equation and not a measurement . Results may be impacted by variability in physiology age, sex, serum creatinine. Units for EGFR (2020 CKD-EPI)=mL /min/1.73 square meters. Ordering Provider: BHAVNA BARNES Report Released Date/Time: May 14, 2023 11:50 AM Reporting Lab: [address] [address] Performing Lab: [address] [address] [facility] Vital Signs Combined list of inpatient and outpatient Vital Signs from Department of Defense and [facility] Affairs, ranging from 12 months to all on record, depending upon the facility. Vital Sign Value Date Comments Source SYSTOLIC BLOOD PRESSURE 153 08/24/2024 14:37:35 [facility] DIASTOLIC BLOOD PRESSURE 79 08/24/2024 14:37:35 [facility] PULSE OXIMETRY 97 08/24/2024 14:37:35 [facility] WEIGHT 219 08/24/2024 14:37:35 [facility] BMI 31 kg/m2 08/24/2024 14:37:35 [facility] PAIN 8 08/24/2024 14:37:35 [facility] TEMPERATURE 97.3 08/24/2024 14:37:35 [facility] PULSE 65 08/24/2024 14:37:35 [facility] RESPIRATION 16 08/24/2024 14:37:35 [facility] SYSTOLIC BLOOD PRESSURE 130 08/11/2024 09:40:01 [facility] DIASTOLIC BLOOD PRESSURE 80 08/11/2024 09:40:01 [facility] PULSE OXIMETRY 97 08/11/2024 09:40:01 [facility] WEIGHT 219 08/11/2024 09:40:01 [facility] BMI 31 kg/m2 08/11/2024 09:40:01 [facility] PAIN 0 08/11/2024 09:40:01 [facility] HEIGHT 70.8 08/11/2024 09:40:01 [facility] TEMPERATURE 98.1 08/11/2024 09:40:01 [facility] PULSE 63 08/11/2024 09:40:01 [facility] RESPIRATION 12 08/11/2024 09:40:01 [facility] Encounters Combined list of: 1) Encounters from [facility] facilities going backup to the last 18 months, not all [place] inpatient encounters are included; 2) Encounters from the Department of [facility] facilities going backup to 280 months. 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 WESLEY Jacob 06/18 [facility] Outpatient Encounter [id number] 06/19 [facility] OFFICE O/P EST LOW 20 MIN [id number] Diagnos is: ICD-10- CM M65.4 Radial styloid tenosyn ovitis [de Quervai n] KRYSTIAN NAGEL 06/19 [facility] Outpatient Encounter [id number] 6.06/20 [facility] Outpatient Encounter [id number] 6.06/20 [facility] Outpatient Encounter [id number] 06/30 [facility] Outpatient Encounter [id number] 6.08/20 [facility] OFFICE O/P EST LOW 20 MIN [id number] Diagnos is: ICD-10- CM E78.5 Hyperli pidemia , unspeci fiRAOUL Yates 08/20 [facility] UNLISTED SPEC DERM SVC/PX [id number] Diagnos is: ICD-10- CM Z13.89 Encount er for screeni ng for other disorde r Pipe RENO 08/20 [facility] Outpatient Encounter [id number]. 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, non-arnol plastic HVEZDA,CAR KERRIE K 01/07 [facility] Outpatient Encounter [id number] 01/20 [facility] Outpatient Encounter [id number] 01/26 [facility] [place] [facility] Outpatient Encounter [id number] Betty DAVIS 06/08 [place] [facility] Outpatient Encounter [id number] RAOUL BARNES 08/06 [facility] Outpatient Encounter [id number] 08/11 [facility] Outpatient Encounter [id number] 08/11 [facility] OFFICE O/P EST LOW 20 MIN [id number] Diagnos is: ICD-10- CM E78.5 Hyperli pidemia , unspeci fied RAOUL BARNES A 08/11 [facility] Outpatient Encounter [id number] 08/17 [facility] Outpatient Encounter [id number] 08/18 [facility] PT EDUCATION NOC INDIVID [id number] Diagnos is: ICD-10- CM 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 PYBURN,ORTIZ BAUTISTA A 08/24 [facility] OFFICE O/P EST HI 40 MIN [id number] Diagnos is: ICD-10- CM 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.114 Celluli tis of left upper limb LASSA,APRI L A 08/24 [facility] Outpatient Encounter [id number] 08/25 [facility] Outpatient Encounter [id number] 08/25 [facility] Outpatient Encounter [id number] IGOR ALONZO RN 08/25 [facility] Outpatient Encounter [id number] IGOR ALONZO RN 08/26 [facility] Outpatient Encounter [id number] IGOR ALONZO RN 08/26 [facility] Social History Combined list of available smoking, tobacco, and other social history from Department of Defense and [facility] Affairs facilities. Social History Type Response Date Comment Sourc e Tobacco smoking status NHIS VA-TOBACCO USE FORMER CIGARETTES 08/11/2024 [facility] History of tobacco use AR-TOBACCO USE SO ME DAYS OTHER TYPE 08/11/2024 [facility] History of tobacco use VA-TOBACCO FORMER USER 08/21/2023 [facility] History of tobacco use VA-TOBACCO FORMER USER 08/16/2022 [facility] History of tobacco use VA-TOBACCO FORMER USER 08/14/2021 [facility] History of tobacco use VA-TOBACCO FORMER USER 08/23/2020 [facility] History of tobacco use VA-TOBACCO FORMER USER 08/04/2018 [facility] History of tobacco use QUIT TOBACCO >7 YEARS AGO 8 [facility]
--- OUTSIDE RECORDS SUMMARY | 2024-10-15 09:50 | XMS_ITS | Continuity of Care Document ---
Author Name [facility] Organization [facility] Care Team Providers Care Security Assurance Specialist Name Role Phone [facility] Unavailable Unavailable Problems Combined list of problems from Department of Defense and Veterans Affairs facilities. It does not include entries that were removed or entered in error. 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 5 Condition Aug 24, 2024 Entered By: CLARICEJuly Comment: Infection to left elbow MRSA positive [facility] Diverticulitis Active Condition May [id number] Entered By: EB NAVARRO PA-C Comment: perf 02/2015, R hemicolectomy , sm bowel resection, end ileostomy, takedown 07/2015 [facility] History of colonic polyp Active Condition Dec 10, 2022 Entered By: EDILBERTO ALONZO RN Comment: colo Jain 11/2022, rpt 7-10 yrs, due 11/2029 [facility] Hyperlipidemia Active Condition [facility] Insomnia Active Condition [facility] Obesity (SCT [id number]) Active Condition [facility] Psoriasis Active Condition [facility] Diagnosis: ICD-10-CM L03.114 Cellulitis of left upper limb Active Diagnosis [facility] Diagnosis: ICD-10-CM G31.84 Mild cognitive impairment of uncertain or unknown etiology Active Diagnosis [facility] Diagnosis: ICD-10-CM E78.5 Hyperlipidemia, unspecified Active Diagnosis [facility] Diagnosis: ICD-10-CM I78.1 Nevus, non-neoplastic Active Diagnosis [facility] Diagnosis: ICD-10-CM L98.9 Disorder of the skin and subcutaneous tissue, unspecified Active Diagnosis [facility] Diagnosis: ICD-10-CM L82.1 Other seborrheic keratosis Active Diagnosis [facility] Diagnosis: ICD-10-CM Z13.89 Encounter for screening for other disorder Active Diagnosis [facility] Diagnosis: ICD-10-CM M65.4 Radial styloid tenosynovitis [de Quervain] Active Diagnosis [facility] Diagnosis: ICD-10-CM Z71.89 Other specified counseling Active Diagnosis [facility] Medications Combined list of outpatient medications from [...] NEEDED FOR DANDRUFF TOPICA L ACTIVE 08/12/2025 [id number] DIAMANTE BARNES RLENE A 2024 255 [facility] FAMOTIDINE 20MG TAB TAKE ONE TABLET BY MOUTH DAILY PRN ORAL ACTIVE MOLLYDIAMANTE WONG RLENE A 2023 [facility] ROSUVASTATI N CA 20MG TAB TAKE ONE-HALF TABLET BY MOUTH EVERY EVENING *TO LOWER CHOLESTE ROL* ORAL ACTIVE 08/12/2025 [id number] MOLLYDIAMANTE WONG RLENE A 2024 45 [facility] ROSUVASTATI N CA 20MG TAB TAKE ONE-HALF TABLET BY MOUTH EVERY EVENING *TO LOWER CHOLESTE ROL* ORAL DISCONT INUED 08/21/2024 [id number] MOLLYDIAMANTE WONG RLENE A 2023 45 [facility] ROSUVASTATI N CA 20MG TAB TAKE ONE-HALF TABLET BY MOUTH EVERY EVENING *TO LOWER CHOLESTE ROL* ORAL DISCONT INUED 08/19/2023 [id number] 4 DOUG JETT 2022 45 [facility] SULFAMETHOX AZOLE 800MG/TRIME THOPRIM 160MG TAB TAKE 1 TABLET BY MOUTH TWO TIMES EACH DAY FOR INFECTIO N UNTIL ALL DOSES ARE TAKEN/FI NISHED ORAL 09/23/2024 [id number] LASSA,APR IL A 2024 20 [facility] Immunizations Combined list of available immunizations from the Department of Defense and Veterans Affairs facilities. Immunization Series Date Given Administered By Site Reaction Lot Number CVX Code Drug Veterinarian Laboratory Animal Care Status Comments Source ZOSTER RECOMBINANT 2 2018 [...] Reference Range Date Interpretation Specimen Comments Source ALT(SGPT) ALANINE AMINOTRANSF ERASE [ENZYMATIC ACTIVITY/VO LUME] [...] Aug 21, 2023 10:44 AM Reporting Lab: [place] [phone] Performing Lab: [place] [phone] [facility] AST(SGOT) ASPARTATE AMINOTRANSF ERASE [ENZYMATIC [...] Aug 21, 2023 10:44 AM Reporting Lab: [address] [facility] [address] Performing Lab: [place] [phone] [facility] BASIC METABOLIC CREATININE [MASS/VOLUM E] [...] Aug 21, 2023 10:44 AM Reporting Lab: [address] [facility] [address] Performing Lab: [address] [facility] [address] [facility] BASIC METABOLIC UREA NITROGEN [MASS/VOLUM [...] Aug 21, 2023 10:44 AM Reporting Lab: [address] [address] Performing Lab: [place] [phone] [facility] BASIC METABOLIC GLUCOSE [MASS/VOLUM E] [...] Aug 21, 2023 10:44 AM Reporting Lab: [address] [facility] [address] Performing Lab: [address] [facility] [address] [facility] BASIC METABOLIC SODIUM [MOLES/VOLU ME] [...] Aug 21, 2023 10:44 AM Reporting Lab: [address] [address] Performing Lab: [place] [phone] [facility] BASIC METABOLIC POTASSIUM [MOLES/VOLU ME] [...] Aug 21, 2023 10:44 AM Reporting Lab: [address] [address] Performing Lab: [address] [address] [facility] BASIC METABOLIC CHLORIDE [MOLES/VOLU ME] [...] Aug 21, 2023 10:44 AM Reporting Lab: [address] [address] Performing Lab: [address] [address] [facility] BASIC METABOLIC CARBON DIOXIDE, TOTAL [...] Aug 21, 2023 10:44 AM Reporting Lab: [place] [address] [address] [facility] [address] Performing Lab: [place] [address] [address] [facility] [address] [facility] BASIC METABOLIC CALCIUM [MASS/VOLUM E] [...] Aug 21, 2023 10:44 AM Reporting Lab: [place] [address] [address] [facility] [address] Performing Lab: [place] [address] [address] [facility] [address] [facility] BASIC METABOLIC ANION GAP IN [...] Aug 21, 2023 10:44 AM Reporting Lab: [place] [address] [address] [facility] [address] Performing Lab: [place] [address] [address] [facility] [address] [facility] BASIC METABOLIC UREA NITROGEN/CR EATININE [MASS RATIO] IN SERUM OR PLASMA 12 10 - 20 08/06 Specimen Type: PLASMA Comment: This is an estimate of GFR using the CKD-Epi equation and not a measurement . Results may be impacted by variability in physiology age, sex, serum creatinine. Units for EGFR (2020 CKD-EPI)=mL /min/1.73 square meters. Ordering Provider: BHAVNA BARNES Report Released Date/Time: Aug 21, 2023 10:44 AM Reporting Lab: [place] [address] [address] [facility] [address] Performing Lab: [place] [address] [address] [facility] [address] [facility] BASIC METABOLIC GLOMERULAR FILTRATION RATE/1.73 [...] Aug 21, 2023 10:44 AM Reporting Lab: [place] [phone] Performing Lab: [place] [phone] [facility] CBC WITH DIFFERENT IAL LEUKOCYTES [#/VOLUME] IN BLOOD BY AUTOMATED COUNT 6.0 10*3/u L 4.0 - 11.0 08/06 Specimen Type: BLOOD No comment entered. Ordering Provider: BHAVNA BARNES Report Released Date/Time: Aug 21, 2023 10:44 AM Reporting Lab: [place] [address] [facility] [address] Performing Lab: [place] [phone] [facility] CBC WITH DIFFERENT IAL ERYTHROCYTE S [#/VOLUME] IN BLOOD BY AUTOMATED COUNT 5.08 10*6/u L 4.20 - 5.70 08/06 Specimen Type: BLOOD No comment entered. Ordering Provider: BHAVNA BARNES Report Released Date/Time: Aug 21, 2023 10:44 AM Reporting Lab: [address] [address] Performing Lab: [place] [phone] [facility] CBC WITH DIFFERENT IAL HEMOGLOBIN [MASS/VOLUM E] IN BLOOD 15.1 g/dL 13.0 - 17.0 08/06 Specimen Type: BLOOD No comment entered. Ordering Provider: BHAVNA BARNES Report Released Date/Time: Aug 21, 2023 10:44 AM Reporting Lab: [facility] [address] [facility] [address] Performing Lab: [facility] [address] [facility] [address] [facility] CBC WITH DIFFERENT IAL HEMATOCRIT [VOLUME FRACTION] OF BLOOD BY AUTOMATED COUNT 45.3 40.0 - 51.0 08/06 Specimen Type: BLOOD No comment entered. Ordering Provider: BHAVNA BARNES Report Released Date/Time: Aug 21, 2023 10:44 AM Reporting Lab: [facility] [address] [facility] [address] Performing Lab: [facility] [address] [facility] [address] [facility] CBC WITH DIFFERENT IAL MCV [ENTITIC VOLUME] BY AUTOMATED COUNT 89.2 fL 82.0 - 99.0 08/06 Specimen Type: BLOOD No comment entered. Ordering Provider: BHAVNA BARNES Report Released Date/Time: Aug 21, 2023 10:44 AM Reporting Lab: [facility] [address] [facility] [address] Performing Lab: [place] [address] [address] [facility] [address] [facility] CBC WITH DIFFERENT IAL MCH [ENTITIC MASS] BY AUTOMATED COUNT 29.7 pg 27.0 - 34.0 08/06 Specimen Type: BLOOD No comment entered. Ordering Provider: BHAVNA BARNES Report Released Date/Time: Aug 21, 2023 10:44 AM Reporting Lab: [facility] [address] [facility] [address] Performing Lab: [facility] [address] [facility] [address] [facility] CBC WITH DIFFERENT IAL MCHC [MASS/VOLUM E] BY AUTOMATED COUNT 33.3 g/dL 31.0 - 37.0 08/06 Specimen Type: BLOOD No comment entered. Ordering Provider: BHAVNA BARNES Report Released Date/Time: Aug 21, 2023 10:44 AM Reporting Lab: [facility] [address] [facility] [address] Performing Lab: [facility] [address] [facility] [address] [facility] CBC WITH DIFFERENT IAL PLATELETS [#/VOLUME] IN BLOOD BY AUTOMATED COUNT 165 10*3/u L 130 - 400 08/06 Specimen Type: BLOOD No comment entered. Ordering Provider: BHAVNA BARNES Report Released Date/Time: Aug 21, 2023 10:44 AM Reporting Lab: [place] [address] [address] [facility] [address] Performing Lab: [place] [address] [address] [facility] [address] [facility] CBC WITH DIFFERENT IAL PLATELET MEAN VOLUME [ENTITIC VOLUME] IN BLOOD BY AUTOMATED COUNT 10.3 fL 8.0 - 12.0 08/06 Specimen Type: BLOOD No comment entered. Ordering Provider: BHAVNA BARNES Report Released Date/Time: Aug 21, 2023 10:44 AM Reporting Lab: [place] [address] [address] [facility] [address] Performing Lab: [place] [address] [place] [phone] [facility] CBC WITH DIFFERENT IAL ERYTHROCYTE DISTRIBUTIO N WIDTH [RATIO] BY AUTOMATED COUNT 13.0 < 15.0 - 15.0 08/06 Specimen Type: BLOOD No comment entered. Ordering Provider: BHAVNA BARNES Report Released Date/Time: Aug 21, 2023 10:44 AM Reporting Lab: [place] [address] [address] [facility] [address] Performing Lab: [address] [facility] [address] [facility] CBC WITH DIFFERENT IAL MONOCYTES/1 00 LEUKOCYTES IN BLOOD BY AUTOMATED COUNT 11.4 08/06 Specimen Type: BLOOD No comment entered. Ordering Provider: BHAVNA BARNES Report Released Date/Time: Aug 21, 2023 10:44 AM Reporting Lab: [place] [address] [address] [facility] [address] Performing Lab: [place] [address] [address] [facility] [address] [facility] CBC WITH DIFFERENT IAL LYMPHOCYTES [#/VOLUME] IN BLOOD BY AUTOMATED COUNT 1.5 10*3/u L 1.0 - 4.0 08/06 Specimen Type: BLOOD No comment entered. Ordering Provider: BHAVNA BARNES Report Released Date/Time: Aug 21, 2023 10:44 AM Reporting Lab: [facility] [address] [facility] [address] Performing Lab: [facility] [address] [facility] [address] [facility] CBC WITH DIFFERENT IAL LYMPHOCYTES /100 LEUKOCYTES IN BLOOD BY AUTOMATED COUNT 25.5 08/06 Specimen Type: BLOOD No comment entered. Ordering Provider: BHAVNA BARNES Report Released Date/Time: Aug 21, 2023 10:44 AM Reporting Lab: [facility] [address] [facility] [address] Performing Lab: [facility] [address] [facility] [address] [facility] CBC WITH DIFFERENT IAL EOSINOPHILS /100 LEUKOCYTES IN BLOOD BY AUTOMATED COUNT 3.1 08/06 Specimen Type: BLOOD No comment entered. Ordering Provider: BHAVNA BARNES Report Released Date/Time: Aug 21, 2023 10:44 AM Reporting Lab: [facility] [address] [facility] [address] Performing Lab: [facility] [address] [facility] [address] [facility] CBC WITH DIFFERENT IAL BASOPHILS/1 00 LEUKOCYTES IN BLOOD BY AUTOMATED COUNT 0.8 08/06 Specimen Type: BLOOD No comment entered. Ordering Provider: BHAVNA BARNES Report Released Date/Time: Aug 21, 2023 10:44 AM Reporting Lab: [facility] [address] [facility] [address] Performing Lab: [facility] [address] [facility] [address] [facility] CBC WITH DIFFERENT IAL NEUTROPHILS /100 LEUKOCYTES IN BLOOD BY AUTOMATED COUNT 58.7 08/06 Specimen Type: BLOOD No comment entered. Ordering Provider: BHAVNA BARNES Report Released Date/Time: Aug 21, 2023 10:44 AM Reporting Lab: [facility] [address] [facility] [address] Performing Lab: [facility] [address] [facility] [address] [facility] CBC WITH DIFFERENT IAL EOSINOPHILS [#/VOLUME] IN BLOOD BY AUTOMATED COUNT 0.2 10*3/u L 0.0 - 0.4 08/06 Specimen Type: BLOOD No comment entered. Ordering Provider: BHAVNA BARNES Report Released Date/Time: Aug 21, 2023 10:44 AM Reporting Lab: [place] [address] [address] [facility] [address] Performing Lab: [place] [address] [place] [phone] [facility] CBC WITH DIFFERENT IAL NEUTROPHILS [#/VOLUME] IN BLOOD 3.5 10*3/u L 1.5 - 8.0 08/06 Specimen Type: BLOOD No comment entered. Ordering Provider: BHAVNA BARNES Report Released Date/Time: Aug 21, 2023 10:44 AM Reporting Lab: [place] [phone] Performing Lab: [place] [phone] [facility] CBC WITH DIFFERENT IAL BASOPHILS [#/VOLUME] IN BLOOD BY AUTOMATED COUNT 0.1 10*3/u L 0.0 - 0.2 08/06 Specimen Type: BLOOD No comment entered. Ordering Provider: BHAVNA BARNES Report Released Date/Time: Aug 21, 2023 10:44 AM Reporting Lab: [place] [phone] Performing Lab: [place] [phone] [facility] CBC WITH DIFFERENT IAL MONOCYTES [#/VOLUME] IN BLOOD BY AUTOMATED COUNT 0.7 10*3/u L 0.2 - 1.0 08/06 Specimen Type: BLOOD No comment entered. Ordering Provider: BHAVNA BARNES Report Released Date/Time: Aug 21, 2023 10:44 AM Reporting Lab: [address] [place] [phone] Performing Lab: [place] [phone] [facility] CBC WITH DIFFERENT IAL IMMATURE GRANULOCYTE S [#/VOLUME] IN BLOOD <0.110 *3/uL 0.0 - 0.5 08/06 Specimen Type: BLOOD No comment entered. Ordering Provider: BHAVNA BARNES Report Released Date/Time: Aug 21, 2023 10:44 AM Reporting Lab: [facility] [address] [facility] [address] Performing Lab: [place] [address] [address] [facility] [address] [facility] CBC WITH DIFFERENT IAL IMMATURE GRANULOCYTE S/100 LEUKOCYTES IN BLOOD 0.5 08/06 Specimen Type: BLOOD No comment entered. Ordering Provider: BHAVNA BARNES Report Released Date/Time: Aug 21, 2023 10:44 AM Reporting Lab: [facility] [address] [facility] [address] Performing Lab: [place] [address] [address] [facility] [address] [facility] CBC WITH DIFFERENT IAL NUCLEATED ERYTHROCYTE S [#/VOLUME] IN BLOOD BY AUTOMATED COUNT <0.011 0*3/uL 0.000 - 0.012 08/06 Specimen Type: BLOOD No comment entered. Ordering Provider: BHAVNA BARNES Report Released Date/Time: Aug 21, 2023 10:44 AM Reporting Lab: [facility] [address] [facility] [address] Performing Lab: [place] [address] [facility] [address] [facility] CBC WITH DIFFERENT IAL NUCLEATED ERYTHROCYTE S [PRESENCE] IN BLOOD BY AUTOMATED COUNT 0.0 /100{W BCs} 0.0 - 0.2 08/06 Specimen Type: BLOOD No comment entered. Ordering Provider: BHAVNA BARNES Report Released Date/Time: Aug 21, 2023 10:44 AM Reporting Lab: [place] [address] [facility] [address] Performing Lab: [place] [address] [address] [facility] [address] [facility] LIPID PROFILE CHOLESTEROL [MASS/VOLUM E] [...] Aug 21, 2023 10:44 AM Reporting Lab: [address] [address] Performing Lab: [place] [phone] [facility] LIPID PROFILE TRIGLYCERID E [MASS/VOLUM [...] Aug 21, 2023 10:44 AM Reporting Lab: [address] [address] Performing Lab: [address] [address] [facility] LIPID PROFILE CHOLESTEROL IN HDL [...] Aug 21, 2023 10:44 AM Reporting Lab: [address] [address] Performing Lab: [place] [phone] [facility] LIPID PROFILE CHOLESTEROL IN LDL [...] Aug 21, 2023 10:44 AM Reporting Lab: [address] [address] Performing Lab: [address] [address] [facility] LIPID PROFILE CHOLESTEROL IN LDL [MASS/VOLUM E] IN SERUM OR PLASMA BY DIRECT ASSAY [facility] 08/06 Specimen Type: PLASMA Comment: This is an estimate of GFR using the CKD-Epi equation and not a measurement . Results may be impacted by variability in physiology age, sex, serum creatinine. Units for EGFR (2020 CKD-EPI)=mL /min/1.73 square meters. Ordering Provider: BHAVNA BARNES Report Released Date/Time: Aug 21, 2023 10:44 AM Reporting Lab: [address] [address] Performing Lab: [address] [address] [facility] PROSTATE SPECIFIC ANTIGEN PROSTATE SPECIFIC AG [MASS/VOLUM E] IN SERUM OR PLASMA 0.52 ng/mL 0.00 - 4.00 08/06 Specimen Type: SERUM Comment: PSA was performed on the [employer] Immunoassay Analyzer. Ordering Provider: BHAVNA BARNES Report Released Date/Time: Aug 21, 2023 10:44 AM Reporting Lab: [address] [address] Performing Lab: [address] [address] [facility] ALT(SGPT) ALANINE AMINOTRANSF ERASE [ENZYMATIC [...] May 14, 2023 11:50 AM Reporting Lab: [address] [address] Performing Lab: [address] [address] [facility] AST(SGOT) ASPARTATE AMINOTRANSF ERASE [ENZYMATIC [...] May 14, 2023 11:50 AM Reporting Lab: [place] [address] [address] [facility] [address] Performing Lab: [place] [address] [address] [facility] [address] [facility] BASIC METABOLIC CREATININE [MASS/VOLUM E] [...] May 14, 2023 11:50 AM Reporting Lab: [place] [address] [address] [facility] [address] Performing Lab: [place] [address] [address] [facility] [address] [facility] BASIC METABOLIC UREA NITROGEN [MASS/VOLUM [...] May 14, 2023 11:50 AM Reporting Lab: [facility] [address] [facility] [address] Performing Lab: [place] [address] [address] [facility] [address] [facility] BASIC METABOLIC GLUCOSE [MASS/VOLUM E] [...] May 14, 2023 11:50 AM Reporting Lab: [address] [address] Performing Lab: [address] [address] [facility] BASIC METABOLIC SODIUM [MOLES/VOLU ME] [...] May 14, 2023 11:50 AM Reporting Lab: [address] [address] Performing Lab: [address] [address] [facility] BASIC METABOLIC POTASSIUM [MOLES/VOLU ME] [...] May 14, 2023 11:50 AM Reporting Lab: [address] [address] Performing Lab: [address] [address] [facility] BASIC METABOLIC CHLORIDE [MOLES/VOLU ME] [...] May 14, 2023 11:50 AM Reporting Lab: [place] [address] [facility] [address] Performing Lab: [place] [address] [address] [facility] [address] [facility] BASIC METABOLIC CARBON DIOXIDE, TOTAL [...] May 14, 2023 11:50 AM Reporting Lab: [place] [address] [address] [facility] [address] Performing Lab: [place] [address] [address] [facility] [address] [facility] BASIC METABOLIC CALCIUM [MASS/VOLUM E] [...] May 14, 2023 11:50 AM Reporting Lab: [place] [address] [address] [facility] [address] Performing Lab: [place] [phone] [facility] BASIC METABOLIC ANION GAP IN [...] May 14, 2023 11:50 AM Reporting Lab: [address] [address] Performing Lab: [address] [address] [facility] BASIC METABOLIC UREA NITROGEN/CR EATININE [...] May 14, 2023 11:50 AM Reporting Lab: [address] [address] Performing Lab: [address] [address] [facility] BASIC METABOLIC GLOMERULAR FILTRATION RATE/1.73 [...] May 14, 2023 11:50 AM Reporting Lab: [address] [address] Performing Lab: [address] [address] [facility] CBC HEMOGRAM ONLY LEUKOCYTES [#/VOLUME] IN BLOOD BY AUTOMATED COUNT 7.9 10*3/u L 4.0 - 11.0 08/20 Specimen Type: BLOOD No comment entered. Ordering Provider: BHAVNA BARNES Report Released Date/Time: May 14, 2023 11:50 AM Reporting Lab: [facility] [address] [facility] [address] Performing Lab: [facility] [address] [facility] [address] [facility] CBC HEMOGRAM ONLY ERYTHROCYTE S [#/VOLUME] IN BLOOD BY AUTOMATED COUNT 5.01 10*6/u L 4.20 - 5.70 08/20 Specimen Type: BLOOD No comment entered. Ordering Provider: BHAVNA BARNES Report Released Date/Time: May 14, 2023 11:50 AM Reporting Lab: [facility] [address] [facility] [address] Performing Lab: [facility] [address] [facility] [address] [facility] CBC HEMOGRAM ONLY HEMOGLOBIN [MASS/VOLUM E] IN BLOOD 14.8 g/dL 13.0 - 17.0 08/20 Specimen Type: BLOOD No comment entered. Ordering Provider: BHAVNA BARNES Report Released Date/Time: May 14, 2023 11:50 AM Reporting Lab: [facility] [address] [facility] [address] Performing Lab: [facility] [address] [facility] [address] [facility] CBC HEMOGRAM ONLY HEMATOCRIT [VOLUME FRACTION] OF BLOOD BY AUTOMATED COUNT 44.3 40.0 - 51.0 08/20 Specimen Type: BLOOD No comment entered. Ordering Provider: BHAVNA BARNES Report Released Date/Time: May 14, 2023 11:50 AM Reporting Lab: [facility] [address] [facility] [address] Performing Lab: [facility] [address] [facility] [address] [facility] CBC HEMOGRAM ONLY MCV [ENTITIC VOLUME] BY AUTOMATED COUNT 88.4 fL 82.0 - 99.0 08/20 Specimen Type: BLOOD No comment entered. Ordering Provider: BHAVNA BARNES Report Released Date/Time: May 14, 2023 11:50 AM Reporting Lab: [facility] [address] [facility] [address] Performing Lab: [facility] [address] [facility] [address] [facility] CBC HEMOGRAM ONLY MCH [ENTITIC MASS] BY AUTOMATED COUNT 29.5 pg 27.0 - 34.0 08/20 Specimen Type: BLOOD No comment entered. Ordering Provider: BHAVNA BARNES Report Released Date/Time: May 14, 2023 11:50 AM Reporting Lab: [facility] [address] [facility] [address] Performing Lab: [facility] [address] [facility] [address] [facility] CBC HEMOGRAM ONLY [facility] [MASS/VOLUM E] BY AUTOMATED COUNT 33.4 g/dL 31.0 - 37.0 08/20 Specimen Type: BLOOD No comment entered. Ordering Provider: BHAVNA BARNES Report Released Date/Time: May 14, 2023 11:50 AM Reporting Lab: [facility] [address] [facility] [address] Performing Lab: [place] [address] [facility] [address] [facility] CBC HEMOGRAM ONLY PLATELETS [#/VOLUME] IN BLOOD BY AUTOMATED COUNT 197 10*3/u L 130 - 400 08/20 Specimen Type: BLOOD No comment entered. Ordering Provider: BHAVNA BARNES Report Released Date/Time: May 14, 2023 11:50 AM Reporting Lab: [facility] [address] [facility] [address] Performing Lab: [facility] [address] [facility] [address] [facility] CBC HEMOGRAM ONLY PLATELET MEAN VOLUME [ENTITIC VOLUME] IN BLOOD BY AUTOMATED COUNT 10.7 fL 8.0 - 12.0 08/20 Specimen Type: BLOOD No comment entered. Ordering Provider: BHAVNA BARNES Report Released Date/Time: May 14, 2023 11:50 AM Reporting Lab: [facility] [address] [facility] [address] Performing Lab: [facility] [address] [facility] [address] [facility] CBC HEMOGRAM ONLY ERYTHROCYTE DISTRIBUTIO N WIDTH [RATIO] BY AUTOMATED COUNT 13.2 < 15.0 - 15.0 08/20 Specimen Type: BLOOD No comment entered. Ordering Provider: BHAVNA BARNES Report Released Date/Time: May 14, 2023 11:50 AM Reporting Lab: [facility] [address] [facility] [address] Performing Lab: [facility] [address] [facility] [address] [facility] CBC HEMOGRAM ONLY NUCLEATED ERYTHROCYTE S [#/VOLUME] IN BLOOD BY AUTOMATED COUNT <0.011 0*3/uL 0.000 - 0.012 08/20 Specimen Type: BLOOD No comment entered. Ordering Provider: BHAVNA BARNES Report Released Date/Time: May 14, 2023 11:50 AM Reporting Lab: [facility] [address] [facility] [address] Performing Lab: [address] [address] [facility] CBC HEMOGRAM ONLY NUCLEATED ERYTHROCYTE S [PRESENCE] IN BLOOD BY AUTOMATED COUNT 0.0 /100{W BCs} 0.0 - 0.2 08/20 Specimen Type: BLOOD No comment entered. Ordering Provider: BHAVNA BARNES Report Released Date/Time: May 14, 2023 11:50 AM Reporting Lab: [address] [facility] [address] Performing Lab: [address] [address] [facility] Vital Signs Combined list of inpatient and outpatient Vital Signs from Department of Defense and Veterans Affairs, ranging from 12 months to all on record, depending upon the facility. Vital Sign Value Date Comments Source SYSTOLIC BLOOD PRESSURE 153 08/24/2024 14:37:35 [facility] DIASTOLIC BLOOD PRESSURE 79 08/24/2024 14:37:35 [facility] PULSE OXIMETRY 97 08/24/2024 14:37:35 [facility] WEIGHT 219 08/24/2024 14:37:35 [facility] BMI 31 kg/m2 08/24/2024 14:37:35 [facility] PAIN 8 08/24/2024 14:37:35 [facility] TEMPERATURE 97.3 08/24/2024 14:37:35 [facility] PULSE 65 08/24/2024 14:37:35 [facility] RESPIRATION 16 08/24/2024 14:37:35 [facility] SYSTOLIC BLOOD PRESSURE 130 08/11/2024 09:40:01 [facility] [...] Encounters Combined list of: 1) Encounters from [facility] facilities going backup to the last 18 months, not all [place] inpatient encounters are included; 2) Encounters from the Department of [facility] facilities going backup to 280 months. Location Location Details Encounter Type Encounter Number Reason For Visit Attending Provider ADM Date DC Date Status Disposition Source [facility] Outpatient Encounter [id number] Betty DAVIS 05/08 [facility] Outpatient Encounter [id number] 05/10 [facility] Outpatient Encounter [id number] 06/12 [facility] HC PRO PHONE CALL 21-30 MIN [id number] Diagnos is: ICD-10- CM Z71.89 Other specifi ed staff genetic counselor WESLEY Jacob 06/18 [facility] Outpatient Encounter [id number] 06/19 [facility] OFFICE O/P EST LOW 20 MIN [id number] Diagnos is: ICD-10- CM M65.4 Radial styloid tenosyn ovitis [de Quervai n] KRYSTIAN NAGEL 06/19 [facility] Outpatient Encounter [id number] 6.06/20 [facility] Outpatient Encounter [id number] 6.06/20 [facility] Outpatient Encounter [id number] 06/30 [facility] Outpatient Encounter [id number] 6.08/20 [facility] OFFICE O/P EST LOW 20 MIN [id number] Diagnos is: ICD-10- CM E78.5 Hyperli pidemia , unspeci fiRAOUL Yates 08/20 [facility] UNLISTED SPEC DERM SVC/PX [id number] Diagnos is: ICD-10- CM Z13.89 Encount er for screeni ng for other disorde r Pipe RENO 08/20 [facility] Outpatient Encounter [id number]. 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, non-arnol plastic HVEZDA,CAR KERRIE K 01/07 [facility] Outpatient Encounter [id number] 01/20 [facility] Outpatient Encounter [id number] 01/26 [facility] [place] [facility] Outpatient Encounter [id number] Betty DAVIS 06/08 [place] [facility] Outpatient Encounter [id number] RAOUL BARNES 08/06 [facility] Outpatient Encounter [id number] 08/11 [facility] Outpatient Encounter [id number] 08/11 [facility] OFFICE O/P EST LOW 20 MIN [id number] Diagnos is: ICD-10- CM E78.5 Hyperli pidemia , unspeci fied RAOUL BARNES A 08/11 [facility] Outpatient Encounter [id number] 08/17 [facility] Outpatient Encounter [id number] 08/18 [facility] PT EDUCATION NOC INDIVID [id number] Diagnos is: ICD-10- CM 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 PYBURN,ORTIZ BAUTISTA A 08/24 [facility] OFFICE O/P EST HI 40 MIN [id number] Diagnos is: ICD-10- CM L03.114 Celluli tis of left upper limb LASSA,APRI L A 08/24 [facility] Outpatient Encounter [id number] 08/25 [facility] Outpatient Encounter [id number] 08/25 [facility] Outpatient Encounter [id number] IGOR ALONZO RN 08/25 [facility] Outpatient Encounter [id number] IGOR ALONZO RN 08/26 [facility] Outpatient Encounter [id number] IGOR ALONZO RN 08/26 [facility] Social History Combined list of available smoking, tobacco, and other social history from Department of Defense and [facility] Affairs facilities. Social History Type Response Date Comment Sourc e Tobacco smoking status NHIS VA-TOBACCO USE FORMER CIGARETTES 08/11/2024 [facility] History of tobacco use [place]-TOBACCO USE SO ME DAYS OTHER TYPE 08/11/2024 [...]
--- OUTSIDE RECORDS SUMMARY | 2024-10-15 14:52 | XMS_ITS | Clinical Summary ---
Author Organization [facility] Address [address] [place] [address] Care Team Providers Care Edge Setter Name Role Phone Elsewhere, Pcp Primary Care Provider Unavailabl e Source Comments Patient records contain information from all sites at [facility]. For routine questions regarding patient records, call [phone] during business hours, M-F 8:00 AM - 5:00 PM Central Time. Record requests for emergency care only can be directed to [phone] at any time.[facility] Allergies No known active allergies Medications aspirin 81 mg capsule Take 81 mg by mouth once. Active rosuvastatin (CRESTOR) 20 mg tablet Take 10 mg by mouth daily. Active cephalexin (Keflex) 500 mg capsuleIndicati ons:Cellulitis Take 1 capsule (500 mg total) by mouth 3 (three) times a day. 30 capsule 08/21/2024 2:25 PM CDT 08/21/2024 Active Active Problems Problem Noted Date Diagnosed Date Obesity Body Mass Index 30-39.9 Adult 11/28/2022 Hyperlipidemia 02/01/2017 Impaired Fasting Glucose 02/01/2017 Diverticulum Meckel's 01/31/2017 Diverticulitis Colon 01/31/2017 Psoriasis 01/31/2017 Hernia Incisional 01/31/2017 Encounters Date Type Department Care Team Description 08/24/2024 Results Follow-Up Department of Family Medicine, [facility], in [place] [address] [place] [address] Carlos Darling, SINTIAS, P.A.-C. Bacterial Culture, Aerobic + Susceptibility 08/24/2024 Orders Only Department of Family Medicine, [facility], in [place], [place] [address] [place] [address] Carlos Darling MPAS, P.A.-C. 08/21/2024 1:30 PM CDT Office Visit Department of Family Medicine, [facility], in [place], [place] [address] [place] [phone] Provider, Dorian Placeholder Carlos Darling MPAS, P.A.-C. Cellulitis (Primary Dx) Discharge Disposition: Home or Self Care 08/20/2024 Nurse Triage Department of [facility] Medicine, [facility], in [address] [phone] Hanny Wisdom R.N. Cyst from Last 3 Months Immunizations Immunization Administration Dates Next Due RZV (SHINGRIX) 11/24/2018,08/13/2018 Td (Adult), adsorbed 08/17/2003 Tdap 08/13/2018,12/17/2012 Family History Medical History Relation Name Comments Melanoma Brother Parkinson disease Father passed edwina y 91 Psoriasis Father Eye Mother 94 Relation Name Status Comments Brother Melanoma Father Mother Social History Tobacco Use Types Packs/Day Years Used Date Smoking Tobacco: Never Smokeless Tobacco: Never Tobacco Cessation:Counseling Given: Not Answered Alcohol Use Standard Drinks/Week Comments Yes 3 [...] on file 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 Gender Identity Not on file Sexual Orientation Not on file Last Filed Vital Signs Vital Sign Reading Time Taken Comments Blood Pressure 131/83 08/21/2024 1:15 PM CDT Pulse 68 08/21/2024 1:15 PM CDT Temperature 36.3 C (97.3 F) 08/21/2024 1:15 PM CDT Respiratory Rate 18 08/21/2024 1:15 PM CDT Oxygen Saturation 95% 09/20/2023 9:42 AM CDT Inhaled Oxygen Concentration - - Weight 99.8 kg (220 lb 0.3 oz) 08/21/2024 1:15 P M CDT Height 182 cm (5' 11.65) 08/21/2024 1:15 PM CDT Body Mass Index 30.13 08/21/2024 1:15 PM CDT Plan of Treatment Health Maintenance Due Date Last Done Comments CT Colonography 1955 Cologuard 1955 Hepatitis C Screening 1955 Pneumococcal vaccine (50+ years) (1 of 1 - PCV) 2005 RSV vaccine - (32-3 6 weeks) or 60+ years (1 - Risk 60-74 years 1-dose series) 2015 Fasting Glucose for Diabetes Screening 08/09/2019 08/08/2018, 01/31/2017 Lipid (Cholesterol) Screening 08/09/2023, 01/31/2017 COVID-19 Vaccine ( - 2023-2 5 season) 2023 Influenza Vaccine (#1) 2024 Depression Screening (Annual [...] Procedure Name Priority Date/Time Associated Diagnosis Comments BACTERIAL CULTURE, AEROBIC + SUSC Routine 08/21/2024 1:36 PM CDT Cellulitis COLONOSCOPY 12/05/2022 1:01 PM CDT BASIC METABOLIC PANEL, S/P Routine 08/08/2018 LIPID PANEL, S Routine 08/08/2018 from Last 3 Months or Most Recently Relevant to Health Maintenance Results * (ABNORMAL) Bacterial Culture, Aerobic + Susceptibility (08/21/2024 1:36 PM CDT) Bacterial Culture, Aerobic + Susc STAPHYLOCOCCUS AUREUS 2+ (A) 08/24/2024 10:37 AM CDT ECLR Comment: Methicillin Resistant Staphylococcus aureus (MRSA). Semi-Urgent Result. Semi-Urgent This is a semi-urgent result(RIVERA) [facility] Drainage (Elbow, Left) 08/21/2024 1:36 PM CDT 08/21/2024 8:37 PM CDT Comment:Specimen Source Site : Drainage Narrative Organism Antibiotic Method Susceptibility Staphylococcus aureus Oxacillin SUSCEPTIBI LITY, GREGORIO (MCG/ML) >=4 mcg/mL: Resistant Comment: Use oxacillin interpretation to predict results for anti-staphylococcal beta-lactam antibiotics (except ceftaroline). Staphylococcus aureus Gentamicin SUSCEPTIBI LITY, GREGORIO (MCG/ML) <=0.5 mcg/mL: Susceptible Staphylococcus aureus Erythromycin SUSCEPTIBI LITY, GREGORIO (MCG/ML) <=0.25 mcg/mL: Susceptible Staphylococcus aureus Clindamycin SUSCEPTIBI LITY, GREGORIO (MCG/ML) 0.25 mcg/mL: Susceptible Staphylococcus aureus Daptomycin SUSCEPTIBI LITY, GREGORIO (MCG/ML) 0.25 mcg/mL: Susceptible Staphylococcus aureus Vancomycin SUSCEPTIBI LITY, GREGORIO (MCG/ML) 1 mcg/mL: Susceptible Staphylococcus aureus Tetracycline SUSCEPTIBI LITY, GREGORIO (MCG/ML) <=1 mcg/mL: Susceptible Staphylococcus aureus Rifampin SUSCEPTIBI LITY, GREGORIO (MCG/ML) <=0.5 mcg/mL: Susceptible Comment:Rifampin lori uld not be used as monotherapy Staphylococcus aureus Trimethoprim + Sulfamethoxazole SUSCEPTIBILITY, GREGORIO (MCG/ML) >=320 mcg/mL: Resistant us Carlos BOND, P.A.-C. LAB MICROBIOLOGY - NERAL ORDERABLES Final Result [facility] [address] [place] [address], [facility] ECLR [facility] in [place] [address] [place] [address] * COLONOSCOPY (12/05/2022 1:01 PM CDT) Narrative Procedure Note Twin Gonzalez M.D. - 12/05/2022 1:01 PM CDT [facility] Patient Name: Jonathon Horton Procedure Date: [...] Diverticulosis in the sigmoid colon. - Patent [id number] ileo-colonic anastomosis, characterized byhealthy appearing mucosa. Recommendation: [...] retroflexion. There was evidence of a prior [id number] ileo-colonic anastomosisin the ascending colon. This was [...] bowel preparation was evaluated using the BBPS ([place] BowelPreparation Scale) with scores of: Right Colon [...] Note Initiated On: 12/05/2022 1:01 PM Carmen RosalesNSalvadorPSalvador GI PROCEDURE ORDERABLES Fi nal Result * (ABNORMAL) Lipid Panel (08/08/2018) Triglycerides 250(A) 40 - 160 RAT [facility] AL NON-INTERFACE D LAB Cholesterol, Total 128 0 - 200 E XTERNAL NON-INTERFACE D LAB Cholesterol, HDL, S 33(A) 35 - 70 EXTERNAL NON-INTERFACE D LAB LDL Cholesterol 45 EXTE RNAL NON-INTERFACE D LAB Blood (Blood, Venous) us Ordering Provider External M.D. LAB BLOOD NON AD D-ON Final Result EXTERNAL NON-INTERFACED LAB [address] [place] [address] * Basic Metabolic Panel (08/08/2018) Glucose 112 mg/dL EXTERNAL NON-INTERFACED LAB BUN (Blood Urea Nitrogen), S 21 4 - 21 EXTERNAL NON-INTERFACED LAB Creatinine 1.04 0.6 - 1.3 EXTERNAL NON-INTERFACED LAB Potassium, S 4.3 3.4 - 5.3 EXTERNA L NON-INTERFACED LAB Sodium, S 139 137 - 147 EXTERNAL NON-INTERFACED LAB Blood (Blood, Venous) us Ordering Provider External M.D. LAB BLOOD ADD-ON Final Result EXTERNAL NON-INTERFACED LAB [address] [place] [address] from Last 3 Months or Most Recently Relevant to Health Maintenance Insurance [employer] Advance Directives For more information, please contact: [phone] * Full Code (Latest Code Status on File) Date Activated Date Inactivated Comments 12/05/2022 1:43 PM 12/05/2022 3:52 PM Question Answer Comments Full Code: Discussed * Full Code Date Activated Date Inactivated Comments 12/05/2022 10:58 AM 12/05/2022 1:43 PM Question Answer Comments Full Code: Discussed Care Teams Edge Setter Relationship Specialty Start Date End Date Elsewhere, Pcp PCP - General 12/04/21
--- OUTSIDE RECORDS SUMMARY | 2024-10-15 14:52 | XMS_ITS | Encounter Summary ---
Author Organization [facility] Address [address] [place] [address] Care Team Providers Care Controller Mechanic Name Role Phone Elsewhere, Pcp Primary Care Provider Unavailabl e Encounter Details Date Type Department Care Team (Late st Contact Info) Description 08/24/2024 Orders Only Department of Family Medicine, [facility], in [place], [place] [address] [place] [address] Carlos Darling, MPAS, P.A.-C. 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
--- OUTSIDE RECORDS SUMMARY | 2024-10-15 14:52 | XMS_ITS | Clinical Summary ---
Author Organization [facility] Address [address] [place] [address] Care Team Providers Care Security Tech Name Role Phone Giovanny Villafuerte MD Primary Care Provider [phone] Source Comments You are receiving this document as you are listed as the primary care provider,follow-up provider, or the patient has been referred to you for consultation.This is in compliance with the Medicare and[facility] EHR Incentive Program,which states Providers who transition their patient to another setting of careor provider of care or refers their patient to another provider of care shouldprovide summary care record for each transition of care or referral. [facility] Allergies No known active allergies Medications aspirin 81 MG tablet Take 1 tablet by mouth daily (every 24 hours). 90 3 6 Active Methotrexate, Anti-Rheumatic, (AKA RHEUMATREX) 2.5 MG tablet Take 7 tablets by mouth once a week. 84 tablet 2 4 Active Additional Information Patient not taking.Reported on 10/13/2020 folic acid 1 MG tablet TAKE 1 TABLET BY MOUTH DAILY (EVERY 24 HOURS). 30 tablet 3 5 Active Additional Information Patient not taking.Reported on 10/13/2020 clobetasol (AKA TEMOVATE) 0.05 % ointment Apply 1 Application topically 2 times daily. 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 Not on file Not on file Not on rasheeda e Last Filed Vital Signs Vital Sign Reading Time Taken Comments Blood Pressure 144/84 10/13/2020 1:35 PM CDT [facility] Pulse 71 10/13/2020 1:35 PM CDT Temperature [...] Services) 1955 Medicare Annual Wellness Visit 1955 Pneumococcal Vaccine 50+ Yrs (1 of 1 - PCV) 2005 Zoster/Shingles Vaccine (1 of 2) 2005 Cholesterol 12/17/2017 12/17/2012, 07/29, 11/19/2007, Additional history exists Colonoscopy 12/15/2018 12/15/2008 DTaP/Tdap/Td Vaccine (2 - Tdap) 12/17/2022 12/17/2012, 08/17/2003 COVID-19 Vaccine (1 - 2023- season) 2023 Influenza Vaccine (Season Ended) 2024 RSV Vaccine (1 - 1-dose 75+ series) 2030 PSA Screening Discussion Discontinued 013, 08/25/2008, 08/07/2005 HepA Vaccine Aged Out No longer eligi ble based on patient's age to complete this topic HepB Vaccine Aged Out No longer eligi ble based on patient's age to complete this topic Hib Vaccine Aged Out No longer eligi ble based on patient's age to complete this topic IPV (Polio) Vaccine Aged Out No longe r eligible based on patient's age to complete this topic MCV4 Vaccine Aged Out No longer eligi ble based on patient's age to complete this topic Meningococcal B Vaccine Aged Out No l onger eligible based on patient's age to complete this [...] - 12/17/2012 11:08 AM CDT Performed at [facility], [address] [place] [address] us Giovanny Villafuerte MD LAB_1 Final Result HP CONVERSION * Prostatic Specific Antigen (Screen) (12/17/2012 10:40 AM CDT) Prostate Specific Antigen 0.4 0.0 - 4.0 ng/mL HP CONVERSION 12/17/2012 10:4 0 AM CDT 12/17/2012 1:37 PM CDT us Giovanny Villafuerte MD LAB_1 Final Result HP CONVERSION * Endoscopy, colon, diagnostic (12/15/2008 5:06 PM CDT) Anatomical Region Laterality Modality Other us User Conversion ET GI PROCEDURE ORDERABLES Final Result from Last 3 Months or Most Recently Relevant to Health Maintenance Insurance MEDICARE Care Teams Security Tech Relationship Specialty Start [place] [address] [place] [address] PCP - General 07/31/10
--- OUTSIDE RECORDS SUMMARY | 2024-10-15 14:52 | XMS_ITS | Clinical Summary ---
Author Organization [facility] Address [address] [place] [address] Care Team Providers Care Manager Recruitment Name Role Phone Pcp, No Primary Care Provider Unavailabl e Allergies No known active allergies Medications aspirin (ECOTRIN) 81 mg enteric coated tablet Take 1 tablet by mouth once daily with a meal. 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 Not on file Not on file Not on file Obstetrics History Last Filed Vital Signs Vital Sign Reading Time Taken Comments Blood Pressure 154/89 04/18/2016 8:59 AM HOUSE SUPERINTENDENT Pulse 64 04/18/2016 8:59 AM HOUSE SUPERINTENDENT Temperature 36.6 C (97.9 F) 12/20/2015 8:03 AM CDT Respiratory Rate 18 02/24/2015 8:43 AM CDT Oxygen Saturation 98% 12/20/2015 8:03 AM CDT Inhaled Oxygen Concentration - - Weight 101.5 kg (223 lb 12.8 oz) 04/18/2016 8:59 AM HOUSE SUPERINTENDENT Height 180.3 cm (5' 11) 04/18/2016 8:59 AM HOUSE SUPERINTENDENT Body Mass Index 31.21 04/18/2016 8:59 AM HOUSE SUPERINTENDENT Plan of Treatment Health Maintenance Due Date Last Done Comments Hepatitis C screening for age 18-79 1973 Colonoscopy through age 75 2000 Lipids for age 45-75 2000 Pneumococcal series for age 50+ (1 of 1 - PCV) 2005 Zoster (shingles) series for age 50+ (1 of 2) 2005 Depression screening for age 12+ 12/19/2016 12/20/2015, 12/20/2015 BMI (ht and wt on same day) for age 18+ 04/18/2017 04/18/2016, 12/20/2015, 08/11/2015, Additional history exists Tetanus booster 12/17/2022 12/17/2012 COVID-19 vaccine series ( - 2023-25 season) 2023 Influenza Vaccine (Season Ended) 2024 RSV vaccine for adults or (1 - 1-dose 75+ series) 2030 Tdap Completed 12/17/2012 Hepatitis B series for 19+ Aged Out N o longer eligible based on patient's age to complete this topic Care Teams Manager Recruitment Relationship Specialty Start Date End Date Pcp, No . PCP - General 06/20/22
[2024-10-15 15:13] VITALS: BP 151/73; PULSE 66; RESP 18; TEMP 36.8; O2SAT 95; BMI 29.6
--- NOTE | 2024-10-15 15:22 | ED_ITS ---
HPI - General Adult General Chief complaint: Eye Problems Stated complaint: possible pink eye, spreading from R eye to L eye. Time Seen by Provider: 10/15/24 15:12 History of Present Illness HPI narrative: Patient reports redness in left eye. Patient reports this symptom seems to come and go. Now he notes some pink in right eye as well. Vision is not affected and he has no pain or tearing. 69-year-old man presenting to the emergency department with concern of irritation and redness intermittent in his right eye. Now he feels he has seen some pinkness in his left eye as well. Sounds like concern of pinkeye. Does have grandkids. No trauma noted. No particular discharge. Related Data Home Medications ?Medication ?Instructions ?Recorded ?Confirmed rosuvastatin 20 mg tablet (Crestor) 20 mg PO DAILY 05/2106/08/24 aspirin 81 mg capsule 81 mg PO DAILY 06/08/2405/30 Previous Rx's ?Medication ?Instructions ?Recorded ketorolac 10 mg tablet 10 mg PO Q8H 5 days #15 tabs 06/08/24 Allergies Allergy/AdvReac Type Severity Reaction Status Date / Time No Known Drug Allergies Allergy Verified 01/27/24 10:36 Review of Systems Status of ROS: Reports: 6 or more systems reviewed and unremarkable except as noted in History and below PFSH PFS Social History Smoking Status: Current some day smoker What tobacco products do you use: cigars Do you use any of these nicotine containing products: None Second hand tobacco smoke exposure: No How often do you have a drink containing alcohol: monthly or less How often do you have six or more drinks on one occasion: Never AUDIT-C Alcohol total score: 1 Non-prescribed substance use: denies use service: No Exam Narrative: Exam Narrative: Pleasant. NAD. Skin is warm and dry. Face is without redness or swelling. I do not appreciate much change in the left eye however the right eye with some mild conjunctival redness. On eversion of the lids there appears to be a mm sized internal hordeolum on the right lower outer. Pupils are equal and briskly reactive to light and accommodation without pain. Const: Vital Signs, click to edit/add: Vital Signs - 24 hr 10/15/24 15:13 Temperature 98.2 F Pulse Rate [Pulse Oximeter] 66 Respiratory Rate 18 Blood Pressure [Ri ght Upper Arm] 151/73 H Pulse Oximetry 95 Oxygen Delivery Me thod Room Air Documenting provider has reviewed patient's vital signs: yes Course Vital Signs Vital signs: Initial Vital Signs Temperature 98.2 F 10/15/24 15:13 Temperature Source Temporal Artery Scan 10/15/24 15:13 Pulse Rate 66 10/15/24 15:13 Respiratory Rate 18 10/15/24 15:13 Blood Pressure 151/73 H 10/15/24 15:13 Blood Pressure Mean 99 10/15/24 15:13 Pulse Oximetry 95 10/15/24 15:13 Oxygen Delivery Method Room Air 10/15/24 15:13 Vital Signs Temperature 98.2 F 10/15/24 15:13 Pulse Rate 66 10/15/24 15:13 Respiratory Rate 18 10/15/24 15:13 Blood Pressure 151/73 H 10/15/24 15:13 Pulse Oximetry 95 10/15/24 15:13 Oxygen Delivery Method Room Air 10/15/24 15:13 Temperature 98.2 F 10/15/24 15:13 Pulse Rate 66 10/15/24 15:13 Respiratory Rate 18 10/15/24 15:13 Blood Pressure 151/73 H 10/15/24 15:13 Pulse Oximetry 95 10/15/24 15:13 Oxygen Delivery Method Room Air 10/15/24 15:13 Medical Decision Making MDM Narrative Medical decision making narrative: This could be a viral conjunctivitis though I think more likely to be irritation from this hordeolum particularly due to the come and go nature of the irritation. There does not appear to be any evidence of other trauma or internal eye problem. Recommending warm packs and will be supplying with erythromycin ointment from stock. Apply 05/06 - 05/02 inch ribbon of this erythromycin ophthalmic ointment to the right eye 3-4 times daily; last dosing before bed. 5-7 days of treatment. Consider apply warm moist compresses 3 times a day over the next 4 - 5 days. Follow-up if not improved 3-4 weeks, sooner if markedly worse with surrounding redness/heat/swelling/pain/ Medical Records Medical records reviewed: Yes I reviewed the patient's medical records Discharge Plan Discharge Clinical Impression: Internal hordeolum of right eye Patient Disposition: Home, Self-Care Condition: Stable Additional Instructions: Apply 05/06 - 05/02 inch ribbon of this erythromycin ophthalmic ointment to the right eye 3-4 times daily; last dosing before bed. 5-7 days of treatment. Consider apply warm moist compresses 3 times a day over the next 4 - 5 days. Follow-up if not improved 3-4 weeks, sooner if markedly worse with surrounding redness/heat/swelling/pain/copious purulent drainage. Prescriptions: No Action aspirin 81 mg capsule 81 mg PO DAILY ketorolac 10 mg tablet 10 mg PO Q8H 5 Days Qty: 15 0RF rosuvastatin [Crestor] 20 mg tablet 20 mg PO DAILY Follow Up/Referrals: Provider,Not a Local [Primary Care Provider, Family Practice] Stand Alone Forms: [facility] Info Instructions
== END 2024-10-15 16:18 | disposition home or self-care (01) ==
LOC: ED 16:16
PROVIDERS: Emergency Provider Family Medicine
DX: H00.023 Hordeolum internum right eye, unspecified eyelid (principal)
CPT/HCPCS: 99283; A9270